=== PATIENT | female | born 1980 | race Caucasian/White ===

== ENCOUNTER 2020-02-21 16:57 | Outpatient (REF) | payer OTHER, SELFPAY | END 2020-02-21 16:58 | disposition home or self-care (01) | LOC: HO.LNP 16:57 | PROVIDERS: Visit Provider Nurse Practitioner Family | DX: R06.02 Shortness of breath (principal); Z20.828 Contact with and (suspected) exposure to other viral communicable diseases | CPT/HCPCS: 36415; 87635 ==

== ENCOUNTER 2020-02-23 06:44 | Outpatient (REF) | payer OTHER, SELFPAY ==
[2020-02-23 11:47] LABS: D Dimer < 200 NG/ML
== END 2020-02-23 06:45 | disposition home or self-care (01) ==
LOC: HO.HMGCLDS 06:44
PROVIDERS: PCP Internal Medicine; Visit Provider Nurse Practitioner Family
DX: R06.02 Shortness of breath (principal)
CPT/HCPCS: 36415; 85379

== ENCOUNTER 2020-02-26 12:10 | Emergency (ER) | payer OTHER, SELFPAY ==
[2020-02-26 12:30] VITALS: BP 114/78; PULSE 81; RESP 18; TEMP 37.2; O2SAT 97; BMI 26.9
--- NOTE | 2020-02-26 13:09 | ED.GENADULT ---
HPI - General Adult General Chief complaint: General Medical Stated complaint: SOB Time Seen by Provider: 02/26/20 13:08 Source: patient Mode of arrival: ambulatory Limitations: no limitations History of Present Illness complaint: SOB,MALAISE CONCERN THAT SHE MAY HAVE COVID,SHE WAS TESTED BUT TEST RESULT Onset (ago): day(s) (3) Location: chest Radiation: non-radiation Severity: moderate Quality: sharp Pain Consistency: constant Relieving factors: none Related Data Home Medications Medication Instructions Recorded Confirmed cetirizine 10 mg capsule 10 mg PO DAILY 02/21/20 norethindrone acetate 5 mg tablet 5 mg PO DAILY 02/21/20 Previous Rx's Medication Instructions Recorded prednisone 20 mg tablet 20 mg PO DAILY 9 Days #18 tab 02/21/20 azithromycin 250 mg tablet 250 mg PO DAILY 5 Days #5 tab 02/22/20 gabapentin 800 mg tablet 800 mg PO BEDTIME #90 tab 02/25/20 Allergies Allergy/AdvReac Type Severity Reaction Status Date / Time Iodinated Contrast Media Allergy Severe ANGIOEDEMA Unverified 02/03/20 17:46 [Iodinated Contrast Media - IV Dye] contrast dye Allergy Unknown Unverified 12/13/19 00:00 IVP DYE Allergy Severe ANGIOEDEMA Uncoded 02/03/20 17:46 Review of Systems Review of Systems: Yes all other systems are reviewed and are negative PMFSH Past Medical History Attestation statement: The following information was validated with the patient. Medical History (Updated 02/26/20 @ 14:55 by Gt Simon MD) Asthma Endometriosis Fibromyalgia History of benign schwannoma Horners syndrome Social History Social History Advance Directives: No Advance Directives Information Provided: No Physical Exam Vital Signs: Vital Signs: Vital Signs Temp Pulse Resp BP Pulse Ox 02/26/20 12:30 98.9 F 81 18 114/78 97 Body Mass Index 26.9 Const: Other: LOOKS WELL IN NO ACUTE DISTRESS General: cooperative Orientation/consciousness: oriented to person, oriented to place, oriented to time and patient oriented x3 HENMT: Head: Yes normal to inspection Ears: external ears normal Neck: Neck: Yes normal visual inspection Chest: Chest palpation & inspection: normal inspection of the chest and normal palpation of entire chest wall Resp: Effort & Inspection: normal respiratory effort Cardio: Palpation: normal PMI Rate: regular rate Rhythm: regular rhythm Skin: General skin exam: no rashes or lesions noted Neuro: General: oriented to person, oriented to place, oriented to time and patient oriented x3 Extrem: General: Yes normal to inspection Course Course Course Narrative: CHEST X-RAY NEGATIVE, ELECTROCARDIOGRAM NORMAL, SHE IS NORMOTENSIVE WHICH IS SATING 97% ON ROOM AIR SHE HAS A NEGATIVE CORONAVIRUS TEST, SHE HAS DEL MEDIAL TO THAT SHE HAD A NEGATIVE D-DIMER ROOM BY THE PRIMARY CARE PHYSICIAN Reevaluation(s) Reevaluation #1: cOVID TEST NEGATIVE Medical Decision Making ECG Data Attestation: I personally reviewed and interpreted this ECG as follows: Pacemaker model: nsr [address]-T ISOELECTRIC Pacemaker function: normal pacer function Discharge Plan Discharge Clinical Impression: Shortness of breath Patient Disposition: Home, Self-Care Instructions: Shortness of Breath (ED) Prescriptions: No Action gabapentin 800 mg tablet 800 mg PO BEDTIME Qty: 90 RF: 1 prednisone 20 mg tablet 20 mg PO DAILY 9 Days Qty: 18 RF: 0 azithromycin 250 mg tablet 250 mg PO DAILY 5 Days Qty: 5 RF: 0 Referrals: Marcela Marie MD [Primary Care Provider] - 2 days Interventions: ED Discharge Assessment Last Done: 02/26/20 15:24 Discharge Date/Time: 02/26/20 15:26
--- NOTE | 2020-02-26 13:21 | XR_ITS ---
EXAMINATION: XR CHEST CLINICAL INFORMATION: Cough COMPARISON: 08/31/2008 TECHNIQUE: Frontal view of the chest was obtained. FINDINGS: No significant abnormality is noted involving the heart, lungs, mediastinum, bony thorax or soft tissues. IMPRESSION: Unremarkable examination.
--- NOTE | 2020-02-26 13:22 | ECG_ITS ---
Test Reason : SOB Blood Pressure : / mmHG Vent. Rate : 076 BPM Atrial Rate : 076 BPM P-R Int : 156 ms QRS Dur : 076 ms QT Int : 372 ms P-R-T Axes : 066 033 051 degrees QTc Int : 418 ms Normal sinus rhythm Possible Left atrial enlargement Borderline ECG When compared with ECG of 31-AUG-2008 15:28, No significant change was found Referred By: Gt Simon Electronically Signed By:ANGIE ESQUIVEL MD
== END 2020-02-26 15:26 | disposition home or self-care (01) ==
PROVIDERS: Emergency Provider Emergency Medicine; PCP Internal Medicine
DX: R06.02 Shortness of breath (principal); Z79.899 Other long term (current) drug therapy; Z20.828 Contact with and (suspected) exposure to other viral communicable diseases
CPT/HCPCS: 71045; 93005; 99283

== ENCOUNTER → 2020-03-09 07:46 | Outpatient (REF) | payer OTHER, SELFPAY ==
--- NOTE | 2020-03-09 07:51 | CA_ITS ---
Acquisition Time: 2020-03-09 08:01:05 Total Exercise Time: 00:10:19 Test Indications: Dyspnea Medications: Protocol: GRIS Max HR: 173 BPM 95% of Pred: 181 BPM Max BP: 164/078 mmHG Max Work Load: 12.1 METS Exercise stress test using Gris protocol total of 10 min 19 sec. METS 12. Tolerateed well, denies any anginal sx, however pt felt dizzy at the end of the exercise. Pt had ortostatic hypotension in recovery upon standing. EKG without any arrhythmias, no ischemic changes. Test reviewed with Dr. Flores. Given patient's symptoms we recommend stress echo to assess for valve, and ventricular function Referred By: Marcela Marie Overread By: Berry Ramirez
== END ==
LOC: HO.CARD 07:46
PROVIDERS: PCP Internal Medicine; Visit Provider Internal Medicine
DX: R06.02 Shortness of breath (principal); R07.89 Other chest pain; J45.909 Unspecified asthma, uncomplicated; M79.7 Fibromyalgia
CPT/HCPCS: 93017

== ENCOUNTER → 2020-03-27 10:45 | Outpatient (REF) | payer OTHER, SELFPAY ==
--- NOTE | 2020-03-27 10:49 | CA_ITS ---
Acquisition Time: 2020-03-27 10:55:43 Total Exercise Time: 00:10:46 Test Indications: Abnormal Treadmill Test Medications: GABAPENTIN CETRIZINE ALBUTEROL Protocol: GRIS Max HR: 166 BPM 91% of Pred: 181 BPM Max BP: 132/072 mmHG Max Work Load: 13.0 METS Exercise stress ECHO using Gris protocol, total of 10 min 46 sec. METS 13.0 Pt tolerated well, denies any anginal sx. EKG without any arrhythmias, no ischemic changes. ECHO images taken at rest and immediately when HR achieved at peak exercise. Definity contrast used for better images. Normotensive response to exercise. Test reviewed with Dr. Carter Pt had no sx of dizziness after the exercise. Referred By: Marcela Marie Overread By: Berry Ramirez
== END ==
LOC: HO.CARD 10:45
PROVIDERS: PCP Internal Medicine; Visit Provider Internal Medicine
DX: R55 Syncope and collapse (principal)
CPT/HCPCS: 93350; Q9957

== ENCOUNTER 2020-07-24 15:11 | Outpatient (REF) | payer OTHER, SELFPAY ==
[2020-07-25 13:32] LABS: C. trachomatis RNA TMA NOT DETECTED (NOT DETECTED); N. gonorrhoeae RNA TMA NOT DETECTED (NOT DETECTED)
== END 2020-07-24 15:12 | disposition home or self-care (01) ==
LOC: HO.LAB 15:11
PROVIDERS: PCP Internal Medicine; Visit Provider Obstetrics & Gynecology
DX: Z01.419 Encounter for gynecological examination (general) (routine) without abnormal findings (principal); R10.2 Pelvic and perineal pain
CPT/HCPCS: 36415; 81003; 87491; 87591

== ENCOUNTER 2020-07-31 15:42 | Outpatient (REF) | payer OTHER, SELFPAY ==
--- NOTE | ~2020-07-31 | US_ITS ---
EXAMINATION: ULTRASOUND PELVIS COMPLETE CLINICAL INFORMATION: Pelvic and perineal pain. COMPARISON: None TECHNIQUE: Transabdominal and transvaginal imaging of the pelvis is performed. FINDINGS: The uterus is anteverted, heterogeneous measuring 6.7 cm in length, 3.2 cm in AP and 4.1 cm in transverse dimension. There is a hypoechoic lesion in the right fundus measuring 0.4 x 0.5 x 0.8 cm. No additional lesions seen. The right ovary measures 2.7 x 1.5 x 1.4 cm and volume 3.0 mL. No focal lesion seen. Previously it measured 2.7 x 1.4 x 1.9 cm and volume 3.7 mL. The left ovary measures 3.1 x 2.2 x 1.5 cm and volume 5.4 mL. Previously it measured 3.6 x 2.5 x 2.7 cm and volume 2.7 mL. There is no free fluid in the cul-de-sac. US/US pelvic complete IMPRESSION: 1. Heterogeneous uterus with a small fibroid in the right fundus. 2. The ovaries are unremarkable. 3. No free fluid in the cul-de-sac.
--- NOTE | ~2020-07-31 | US_ITS ---
EXAMINATION: ULTRASOUND PELVIS COMPLETE CLINICAL INFORMATION: Pelvic and perineal pain. COMPARISON: None TECHNIQUE: Transabdominal and transvaginal imaging of the pelvis is performed. FINDINGS: The uterus is anteverted, heterogeneous measuring 6.7 cm in length, 3.2 cm in AP and 4.1 cm in transverse dimension. There is a hypoechoic lesion in the right fundus measuring 0.4 x 0.5 x 0.8 cm. No additional lesions seen. The right ovary measures 2.7 x 1.5 x 1.4 cm and volume 3.0 mL. No focal lesion seen. Previously it measured 2.7 x 1.4 x 1.9 cm and volume 3.7 mL. The left ovary measures 3.1 x 2.2 x 1.5 cm and volume 5.4 mL. Previously it measured 3.6 x 2.5 x 2.7 cm and volume 2.7 mL. There is no free fluid in the cul-de-sac. US/US transvaginal IMPRESSION: 1. Heterogeneous uterus with a small fibroid in the right fundus. 2. The ovaries are unremarkable. 3. No free fluid in the cul-de-sac.
== END 2020-07-31 15:43 | disposition home or self-care (01) ==
LOC: HO.US 15:42
PROVIDERS: Visit Provider Obstetrics & Gynecology
DX: R10.2 Pelvic and perineal pain (principal)
CPT/HCPCS: 76830; 76856

== ENCOUNTER → 2020-08-14 11:17 | Outpatient (BNVA) | payer OTHER, SELFPAY | PROVIDERS: PCP Internal Medicine; Visit Provider Obstetrics & Gynecology ==

== ENCOUNTER 2021-03-16 07:18 | Outpatient (REF) | payer OTHER, SELFPAY ==
--- NOTE | ~2021-03-16 | MM_ITS ---
EXAMINATION: MM SCREENING DIGITAL BREAST TOMOSYNTHESIS, BILATERAL CLINICAL INFORMATION: Screening. Asymptomatic. Age 40. No prior breast imaging. No known family history breast cancer. The lifetime risk of breast cancer based on the Tyrer-Cuzick Model is 11%. COMPARISON: None (current study represents initial baseline exam). TECHNIQUE: Digital breast tomosynthesis is performed in both the craniocaudal and mediolateral oblique views along with computer-aided detection (CAD). Synthesized 2D images are generated from the tomosynthesis. FINDINGS: There are scattered areas of fibroglandular density (ACR BI-RADS breast composition Category b). There are no significant masses, abnormal calcifications, or other abnormalities. The axilla and skin contours are unremarkable. MM/MM tomosynthesis screening BI IMPRESSION: No mammographic evidence of malignancy. ASSESSMENT: BI-RADS 1: Negative RECOMMENDATION: Routine annual mammography screening. This patient's information was entered into a reminder system with a target due date for their next mammogram.
== END 2021-03-16 07:19 | disposition home or self-care (01) ==
LOC: HO.MAMMO 07:18
PROVIDERS: PCP Internal Medicine; Visit Provider Obstetrics & Gynecology
DX: Z12.31 Encounter for screening mammogram for malignant neoplasm of breast (principal)
CPT/HCPCS: 77063; 77067

== ENCOUNTER → 2021-08-01 14:46 | Outpatient (BNVA) | payer OTHER, SELFPAY | PROVIDERS: Visit Provider Obstetrics & Gynecology | DX: Z13.89 Encounter for screening for other disorder (principal) ==

== ENCOUNTER 2021-08-23 13:14 | Outpatient (REF) | payer OTHER, SELFPAY ==
--- NOTE | ~2021-08-23 | US_ITS ---
EXAMINATION: ULTRASOUND OF THE PELVIS CLINICAL INFORMATION: Abnormal uterine and vaginal bleeding. COMPARISON: 07/31/2020. TECHNIQUE: Transabdominal and transvaginal pelvic ultrasound. A transvaginal study was performed in addition to the transabdominal study which did not yield an adequate examination of the uterus and ovaries due to superimposed distended gas-filled loops of bowel. FINDINGS: The uterus is normal in size with somewhat heterogeneous appearance, measuring 8.1 x 3 x 3.9 cm longitudinally, anteroposteriorly and transversely. The endometrial stripe thickness is normal, measuring 0.3 cm in thickness. There is an anterior fundal fibroid which measures 1.1 x 0.7 x 1.2 cm. The ovaries bilaterally are visualized and appear normal, with the right ovary measuring 2.4 x 1.4 x 1.3 cm and the left ovary measuring 3.7 x 2.7 x 2.8 cm. Dominant left ovarian follicle measures up to 2.5 cm. No adnexal mass or free fluid collection seen. US/US pelvic and transvaginal IMPRESSION: Small uterine fibroid. Otherwise fairly unremarkable pelvic ultrasound
== END 2021-08-23 13:15 | disposition home or self-care (01) ==
LOC: HO.US 13:14
PROVIDERS: Visit Provider Obstetrics & Gynecology
DX: N93.9 Abnormal uterine and vaginal bleeding, unspecified (principal); D21.9 Benign neoplasm of connective and other soft tissue, unspecified
CPT/HCPCS: 76830; 76856

== ENCOUNTER → 2021-08-30 15:43 | Outpatient (BNVA) | payer OTHER, SELFPAY | PROVIDERS: Visit Provider Obstetrics & Gynecology | DX: Z13.89 Encounter for screening for other disorder (principal) ==

== ENCOUNTER 2022-03-18 09:06 | Outpatient (REF) | payer OTHER, SELFPAY ==
--- NOTE | ~2022-03-18 | XR_ITS ---
EXAMINATION: XR KNEE AP STANDING CLINICAL INFORMATION: Pain COMPARISON: None TECHNIQUE: AP and lateral bilateral standing view of the knees was obtained. FINDINGS: Bones and soft tissues are normal. No fracture or joint effusion. Alignment is anatomic. Joint spaces are well maintained. No abnormal soft tissue calcification. XR/XR knee standing BI IMPRESSION: Normal knees.
[2022-03-19 18:32] LABS: Immunoglobulin E 21 kU/L (<OR=114)
== END 2022-03-18 09:07 | disposition home or self-care (01) ==
LOC: HO.HMGCX 09:06
PROVIDERS: Absent Provider Nurse Practitioner Family; PCP Internal Medicine; Visit Provider Internal Medicine
DX: M25.561 Pain in right knee (principal); M25.562 Pain in left knee; T78.00XD Anaphylactic reaction due to unspecified food, subsequent encounter
CPT/HCPCS: 36415; 73565; 82785; 83520; 86003

== ENCOUNTER 2022-03-26 07:26 | Outpatient (REF) | payer OTHER, SELFPAY ==
[2022-03-26 11:37] LABS: MANUAL DIFF FLAG NO
[2022-03-26 11:52] LABS: Basophils Absolute Auto 0.1 X10*3/uL (0.0-0.2); Basophils Percent Auto 0.9 % (0-2); Eosinophils Absolute Auto 0.2 X10*3/uL (0.0-0.4); Eosinophils Percent Auto 3.7 % (0-4); Hematocrit 43.2 % (37.0-47.0); Hemoglobin 14.8 g/dl (12.0-16.0); Imm Gran Abs Auto 0.01 X10*3/uL (0.00-0.03); Imm Gran Pct Auto 0.2 % (0.0-0.4); Lymphocytes Absolute Auto 1.9 X10*3/uL (1.2-4.9); Lymphocytes Percent Auto 34.1 % (20-40); Mean Corpuscular HGB Conc 34.3 g/dl (31.0-35.0); Mean Corpuscular Hemoglobin 30.7 pg (27.0-33.0); Mean Corpuscular Volume 89.6 fL (80.0-98.0); Mean Platelet Volume 10.1 fL (9.4-12.3); Monocytes Absolute Auto 0.4 X10*3/uL (0.1-1.2); Monocytes Percent Auto 6.3 % (2-11); Neutrophils Absolute Auto 3.1 x10*3/uL (2.0-8.3); Neutrophils Percent Auto 54.8 % (45-73); Platelet Count 312 X10*3/uL (160-400); Red Blood Count 4.82 X10*6/uL (4.20-5.50); Red Cell Distribution Width 11.4 % (11.0-16.0); White Blood Count 5.7 X10*3/uL (4.8-10.8)
[2022-03-26 12:28] LABS: TSH reflex Free T4 0.87 uIU/mL (0.32-4.0); Vitamin D 25-OH Total 60.3 ng/mL (>30)
[2022-03-26 12:29] LABS: Alanine Aminotransferase 7 U/L (0-31); Albumin Level 4.6 g/dL (3.5-5.0); Alkaline Phosphatase 54 U/L (39-117); Anion Gap 14 (12-20); Aspartate Amino Transferase 14 U/L (5-31); Bilirubin Total 0.5 mg/dL (0.0-1.0); Blood Urea Nitrogen 11 mg/dL (9-16); C Reactive Protein 0.24 mg/dL (< or = 0.50); Calcium 9.3 mg/dL (8.4-10.2); Carbon Dioxide 22 mmol/L (22-29); Chloride 107 mmol/L (96-108); Cholesterol 161 mg/dL; Estimated Glomerular Filt Rate 58; Glucose Fasting 94 mg/dL (60-99); HDL Cholesterol 46 mg/dL; LDL Cholesterol Calculated 97 mg/dl; Potassium 4.2 mmol/L (3.3-5.1); Rheumatoid Factor < 15.0 IU/mL (<15.0); Sodium 139 mmol/L (135-145); Total Protein 7.1 g/dL (6.5-8.0); Triglycerides 90 mg/dL
[2022-03-26 12:37] LABS: Erythrocyte Sedimentation Rate 2 MM/HR (0-20)
[2022-03-28 13:16] LABS: Anti Nuclear Antibody Screen NEGATIVE (NEGATIVE)
== END 2022-03-26 07:27 | disposition home or self-care (01) ==
LOC: HO.HMGCLDS 07:26
PROVIDERS: PCP Internal Medicine; Visit Provider Internal Medicine
DX: Z00.01 Encounter for general adult medical examination with abnormal findings (principal); R10.11 Right upper quadrant pain; M25.50 Pain in unspecified joint; N80.9 Endometriosis, unspecified; D21.9 Benign neoplasm of connective and other soft tissue, unspecified
CPT/HCPCS: 36415; 80053; 80061; 82306; 84443; 85025; 85652; 86038; 86039; 86140; 86431

== ENCOUNTER 2022-03-26 12:01 | Outpatient (REF) | payer OTHER, SELFPAY ==
--- NOTE | ~2022-03-26 | MM_ITS ---
EXAMINATION: MM SCREENING DIGITAL BREAST TOMOSYNTHESIS, BILATERAL CLINICAL INFORMATION: Screening. Asymptomatic. COMPARISON: Mammography: March 16, 2021 TECHNIQUE: Digital breast tomosynthesis is performed in both the craniocaudal and mediolateral oblique views along with computer-aided detection (CAD). Synthesized 2D images are generated from the tomosynthesis. FINDINGS: There are scattered areas of fibroglandular density (ACR BI-RADS breast composition Category b). There are no significant masses, abnormal calcifications, or other abnormalities. MM/MM tomosynthesis screening BI IMPRESSION: No significant changes from prior exam. ASSESSMENT: BI-RADS 1: Negative RECOMMENDATION: Routine annual mammography screening. This patient's information was entered into a reminder system with a target due date for their next mammogram.
== END 2022-03-26 12:02 | disposition home or self-care (01) ==
LOC: HO.MAMMO 12:01
PROVIDERS: PCP Internal Medicine; Visit Provider Obstetrics & Gynecology
DX: Z12.31 Encounter for screening mammogram for malignant neoplasm of breast (principal)
CPT/HCPCS: 77063; 77067

== ENCOUNTER → 2022-08-07 13:46 | Outpatient (BNVA) | payer OTHER, SELFPAY | PROVIDERS: PCP Internal Medicine; Visit Provider Obstetrics & Gynecology ==

== ENCOUNTER 2022-08-21 13:12 | Outpatient (REF) | payer OTHER, SELFPAY ==
--- NOTE | ~2022-08-21 | US_ITS ---
EXAMINATION: US PELVIS CLINICAL INFORMATION: Benign neoplasm. 41-year-old, LMP is unknown. COMPARISON: 08/23/2021 TECHNIQUE: Ultrasound of the pelvis is performed using both transabdominal and transvaginal transducers along with Doppler. Transvaginal imaging is performed due to inadequate visualization transabdominally. FINDINGS: Uterus: The uterus is anteverted and measures 7.5 x 3.4 x 4.1 cm. The double wall endometrial thickness is 0.4 mm. The uterus is smooth in contour and has normal myometrial echogenicity. 1.2 cm intramural fundal fibroid. Adnexa: Both ovaries are visualized. There is normal color flow to the adnexa. There is no ovarian torsion. There is no pelvic ascites or fluid collection. Right ovary measures 2.0 x 1.2 x 1.2. Left ovary measures 3.6 x 2.2 x 2.0 cm. Intraovarian 2.0 x 2.1 x 1.9 cm unilocular avascular cyst., Decreased from prior study when it measured up to 2.5 cm. US/US pelvic and transvaginal IMPRESSION: 1. Intraovarian 2.1 cm unilocular avascular cyst, decreased in size from prior study when it measured up to 2.5 cm. 2. 1.2 cm intramural fundal fibroid.
== END 2022-08-21 13:13 | disposition home or self-care (01) ==
LOC: HO.US 13:12
PROVIDERS: PCP Internal Medicine; Visit Provider Obstetrics & Gynecology
DX: D21.9 Benign neoplasm of connective and other soft tissue, unspecified (principal)
CPT/HCPCS: 76830; 76856

== ENCOUNTER → 2022-09-18 08:31 | Outpatient (BNVA) | payer OTHER, SELFPAY | PROVIDERS: PCP Internal Medicine; Visit Provider Obstetrics & Gynecology | DX: D25.9 Leiomyoma of uterus, unspecified (principal) | CPT/HCPCS: 99212 ==

== ENCOUNTER 2023-01-24 | Outpatient (REF) | payer OTHER, SELFPAY | END 2023-01-24 00:01 | disposition home or self-care (01) | LOC: CF | PROVIDERS: Visit Provider Obstetrics & Gynecology | DX: R10.31 Right lower quadrant pain (principal); R10.2 Pelvic and perineal pain; R31.9 Hematuria, unspecified | CPT/HCPCS: 81002; 81025; 99212 ==

== ENCOUNTER 2023-01-24 13:17 | Outpatient (AMB) | payer OTHER, SELFPAY ==
--- NOTE | 2023-01-24 13:22 | A.OFFVIS_ITS ---
Intake Vital Signs 01/24/23 13:31 Height 5 ft 7 in Weight 169 lb 12.095 oz BMI 26.6 BP 116/70 Temp 97.8 F Intake Visit Reasons: Ultrasound follow up Title Camera Operator Required: No Information Interpreted: non-clinical & clinical Community Recreation Coordinator: Community Recreation Coordinator Present (Aimee ALARCON) Accompanied by: Self / Same As Patient Allergies Iodinated Contrast Media [Iodinated Contrast Media - IV Dye] Allergy (Severe, Verified 01/24/23 13:32) ANGIOEDEMA vianca fruit Adverse Reaction (Uncoded 01/24/23 13:32) Anaphylaxis Is last menstrual period known: No HPI HPI Comments History of Present Illness Details Presenting complaining of right lower quadrant pain radiating to the back started this morning associated with nausea no vomiting, no fever or chills, no vaginal discharge or abnormal uterine bleeding. [facility] Medical History Acne Multiple food allergies Knee pain, bilateral Right upper quadrant abdominal pain Polyarthralgia Osteoarthritis of right shoulder Arthritis, multiple joint involvement Near syncope History of seizures History of carpal tunnel syndrome Chest tightness Shortness of breath on exertion Horners syndrome History of benign schwannoma Endometriosis Asthma Fibromyalgia Surgical History History of neck surgery History of adenoidectomy S/P correction of deviated nasal septum H/O elbow surgery History of carpal tunnel surgery History of tonsillectomy Family History Father Diabetes mellitus DVT (deep venous thrombosis) HTN (hypertension) Mother Osteoarthritis Maternal Grandmother Diabetes mellitus HTN (hypertension) Paternal Grandmother Throat cancer Brother No problems noted. Son No problems noted. 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 Sexual orientation: Straight/Heterosexual Gender identity: Female Cognitive needs: No Hearing needs: No Vision needs: No Female Reproductive History Menstrual Age of Menarche: 13 control method: pills Review of Systems Const All systems reviewed & are unremarkable except as noted in HPI and below Physical Exam Vital Signs: Last Vital Signs BP 116/70 01/24/23 13:31 BMI result Body Mass Index 26.6 GI Palpation (GI): Soft to palpation, not firm and Tenderness to palpation present (GI) (Right lower quadrant tender) in the RLQ Percussion: Yes normal to percussion and Yes Other (Mild right CVA tender) General: Yes no CVA tenderness External Female Exam: normal external appearance and normal appearance of the urethra Speculum Exam - Vagina: normal appearance of the vagina, normal palpation, no lesions and no masses Speculum Exam - Cervix: normal appearance of the cervix, normal palpation, no lesions, no masses and nontender Bimanual exam- vagina & uterus: normal bimanual exam, normal palpation, uterine size normal, normal palpation, uterine shape normal, No Cervical tenderness present and non-tender Bimanual Exam- Adnexa, other: normal adnexae Back/Spine/Pelvis Back: no CVA tenderness Results AMB Test Urine AMB Test Urine Negative Last Edit by Aimee Lujan CMA on 13:35 AMB Urinalysis Dipstick UR Leukocytes Moderate Last Edit by Aimee Lujan CMA on 01/24/23 13:39 UR Nitrite Negative Last Edit by Aimee Lujan CMA on 01/24/23 13:39 UR Urobilinogen Normal Last Edit by Aimee Lujan CMA on 01/24/23 13:39 UR Protein Trace Last Edit by Aimee Lujan CMA on 01/24/23 13:39 UR Ph 5.5 Last Edit by Aimee Lujan CMA on 01/24/23 13:39 UR Blood Small Last Edit by Aimee Lujan CMA on 01/24/23 13:39 UR Specific [place] 1.025 Last Edit by Aimee Lujan CMA on 01/24/23 13:39 UR Ketone Trace Last Edit by Aimee Lujan CMA on 01/24/23 13:39 UR Bilirubin Small Last Edit by Aimee Lujan CMA on 01/24/23 13:39 UR Glucose Negative Last Edit by Aimee Lujan CMA on 01/24/23 13:39 Results Reviewed Results Reviewed: Laboratory Last Values Urine pH (Clinic) 5.5 01/24/23 13:34 Specific [place] (Clinic) 1.025 01/24/23 13:34 Ur Protein (Clinic) Trace 01/24/23 13:34 Ur Ketones (Clinic) Trace 01/24/23 13:34 Urine Blood (Clinic) Small 01/24/23 13:34 Urine Nitrite Negative 01/24/23 13:34 Urine Bilirubin (Clinic) Small 01/24/23 13:34 Urobilinogen (Clinic) Normal 01/24/23 13:34 Leukocyte Esterase (Clinic) Moderate 01/24/23 13:34 Urine Glucose (Clinic) Negative 01/24/23 13:34 Tst Clinic Negative 01/24/23 13:34 Assessment & Plan Assessment & Plan (1) Right lower quadrant pain: Code(s): R10.31 - Right lower quadrant pain Plan: Urine test done in the office was negative. Urine dip showed positive microscopic hematuria protein and leukocyte more send urine for culture. Discussed with the patient the findings on her pelvic exam no cervical motion tenderness uterine or adnexal tenderness, right lower quadrant tenderness with right CVA tenderness , PID and ectopic could be ruled out but the remaining differential diagnosis of her right lower quadrant pain includes but not limited to kidney stone, kidney infection, appendicitis, endometriosis, ovarian cyst. Recommended patient to go to emergency room anya to be evaluated. All questions answered, the patient verbalized understanding Orders: Orders AMB HCG Urine Test Today Z32.02 - Encounter for test, result negative CT NG by PCR Today R10.2 - Pelvic and perineal pain Urine Culture Today R31.9 - Hematuria, unspecified AMB Urinalysis Dipstick Today R31.9 - Hematuria, unspecified Coding Level of Care Code Est Pt Level 3 (79457) Diagnoses Right lower quadrant pain R10.31
[2023-01-24 13:31] VITALS: BP 116/70; TEMP 36.6; BMI 26.6
== END 2023-01-24 14:26 | disposition home or self-care (01) ==
PROVIDERS: PCP Internal Medicine; Visit Provider Obstetrics & Gynecology
DX: R10.31 Right lower quadrant pain (principal); Z32.02 Encounter for pregnancy test, result negative; R31.9 Hematuria, unspecified
CPT/HCPCS: 99213

== ENCOUNTER 2023-01-24 13:34 | Outpatient (REF) | payer OTHER, SELFPAY ==
[2023-01-25 09:27] LABS: CT PCR NOT DETECTED (Not Detect.); NG PCR NOT DETECTED (Not Detect.)
== END 2023-01-24 13:35 | disposition home or self-care (01) ==
LOC: HO.LNP 13:34
PROVIDERS: Visit Provider Obstetrics & Gynecology
DX: R31.9 Hematuria, unspecified (principal); R10.2 Pelvic and perineal pain
CPT/HCPCS: 0353U; 87086

== ENCOUNTER 2023-03-28 07:50 | Outpatient (REF) | payer OTHER, SELFPAY ==
--- NOTE | ~2023-03-28 | MM_ITS ---
EXAMINATION: MM SCREENING DIGITAL BREAST TOMOSYNTHESIS, BILATERAL CLINICAL INFORMATION: Screening. Asymptomatic. COMPARISON: Mammography: 03/26/2022, 03/16/2021. TECHNIQUE: Digital breast tomosynthesis is performed in both the craniocaudal and mediolateral oblique views along with computer-aided detection (CAD). Synthesized 2D images are generated from the tomosynthesis. FINDINGS: The breasts are heterogeneously dense, which may obscure small masses (ACR BI-RADS breast composition Category c). There are no suspicious masses, suspicious grouped calcifications, or areas of architectural distortion in either breast. The parenchymal pattern is stable from prior exams. MM/MM tomosynthesis screening BI IMPRESSION: No mammographic evidence of malignancy. ASSESSMENT: BI-RADS BI-RADS 1 - Negative RECOMMENDATION: Routine annual mammography screening. 1 year F/U This examination should not preclude the clinical evaluation of a suspicious palpable abnormality. This patient's information was entered into a reminder system with a target due date for their next mammogram.
== END 2023-03-28 07:51 | disposition home or self-care (01) ==
LOC: HO.MAMMO 07:50
PROVIDERS: PCP Internal Medicine; Visit Provider Internal Medicine
DX: Z12.31 Encounter for screening mammogram for malignant neoplasm of breast (principal)
CPT/HCPCS: 77063; 77067

== ENCOUNTER → 2023-03-28 08:00 | Outpatient (BNV) | payer OTHER, SELFPAY | PROVIDERS: PCP Internal Medicine; Visit Provider Radiology Diagnostic Radiology | DX: Z12.31 Encounter for screening mammogram for malignant neoplasm of breast (principal) | CPT/HCPCS: 77063; 77067 ==

== ENCOUNTER 2023-08-20 12:08 | Outpatient (AMB) | payer OTHER, SELFPAY ==
--- NOTE | 2023-08-20 12:09 | MHC.OFFVIS ---
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 No complaints. Last Pap/HPV was negative in 07/08 Last Mammogram was BI-RADS 1 in 04/10 The patient had an ultrasound showed a fundal myoma measuring 1.1 cm in 09/07 [facility] Medical History Acne Multiple food allergies Knee pain, bilateral Right upper quadrant abdominal pain Polyarthralgia Osteoarthritis of right shoulder Arthritis, multiple joint involvement Near syncope History of seizures History of carpal tunnel syndrome Chest tightness Shortness of breath on exertion Horners syndrome History of benign schwannoma Endometriosis Asthma Fibromyalgia Surgical History History of neck surgery History of adenoidectomy S/P correction of deviated nasal septum H/O elbow surgery History of carpal tunnel surgery History of tonsillectomy Family History Father Diabetes mellitus DVT (deep venous thrombosis) HTN (hypertension) Mother Osteoarthritis Maternal Grandmother Diabetes mellitus HTN (hypertension) Paternal Grandmother Throat cancer Brother No problems noted. Son No problems noted. 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 Sexual orientation: Straight/Heterosexual Gender identity: Female Cognitive needs: No Hearing needs: No Vision needs: No Female Reproductive History Menstrual Age of Menarche: 13 Duration of menses: other control method: pills Total pregnancies: 1 Full term: 1 History of abnormal pap smear: No Review of Systems Const All systems reviewed & are unremarkable except as noted in HPI and below Card Reports as per HPI Resp Reports as per HPI GI Reports as per HPI and Reports no additional complaints Reports as per HPI Physical Exam Vital Signs: Last Vital Signs BP 110/62 08/20/23 12:11 BMI result Body Mass Index 27.4 Const General: cooperative, healthy appearing and comfortable Chest Chest palpation & inspection: normal inspection of the chest and normal palpation of entire chest wall Breast/axilla inspection: normal inspection of the breasts and normal inspection of the axillae Breast/axilla palpation: normal palpation of the breasts, normal palpation of the axillae and no axillary lymphadenopathy Resp Effort & Inspection: normal respiratory effort Auscultation: clear to auscultation bilaterally Percussion: percussion normal Cardio Palpation: normal PMI Rate: regular rate Rhythm: regular rhythm Heart sounds: no murmurs and no rubs Peripheral pulses: Peripheral pulses 2+ throughout GI Inspection: Yes normal to inspection Palpation (GI): Soft to palpation, nontender, no guarding, not rigid and No hepatosplenomegaly present Percussion: Yes normal to percussion Auscultation: normal bowel sounds Rectal Exam - Female: deferred General: Yes bladder normal to palpation External Female Exam: No lesion Speculum Exam - Vagina: normal appearance of the vagina, normal palpation, normal vaginal discharge and not erythematous Speculum Exam - Cervix: normal appearance of the cervix and normal palpation Bimanual exam- vagina & uterus: normal bimanual exam, normal palpation, uterine size normal, bladder normal to palpation, consistency normal and normal palpation Bimanual Exam- Adnexa, other: normal adnexae, no masses and no tenderness Assessment & Plan Assessment & Plan (1) Uterine myoma: Code(s): D25.9 - Leiomyoma of uterus, unspecified Plan: Will repeat ultrasound compared to the size of the myoma. Instructions given the patient to schedule an ultrasound follow-up appointment within 2 weeks. (2) Well woman exam: Code(s): Z01.419 - Encounter for gynecological examination (general) (routine) without abnormal findings Plan: Cotesting not indicated this year. Instructions given the patient to schedule next screening Mammogram 04/11. Counseled the patient about the recommended dietary allowance of 1000 mg of Calcium & 600 IU of vitamin D. The patient was instructed to perform monthly self-breast exams and to schedule an annual exam in a year; All questions answered and the patient verbalized understanding. Instructed the patient to schedule annual exam in a year Orders: Orders US pelvic and transvaginal Today D25.9 - Leiomyoma of uterus, unspecified Coding Level of Care Code Est Pt Prev Care 40-64y(85278) Diagnoses Uterine myoma D25.9 Well woman exam Z01.419
[2023-08-20 12:11] VITALS: BP 110/62; BMI 27.4
== END 2023-08-20 12:33 | disposition home or self-care (01) ==
PROVIDERS: Visit Provider Obstetrics & Gynecology
DX: Z01.419 Encounter for gynecological examination (general) (routine) without abnormal findings (principal); D25.9 Leiomyoma of uterus, unspecified
CPT/HCPCS: 99396

== ENCOUNTER → 2023-08-20 12:08 | Outpatient (BNVA) | payer OTHER, SELFPAY | PROVIDERS: Visit Provider Obstetrics & Gynecology ==

== ENCOUNTER 2023-08-27 13:23 | Outpatient (REF) | payer OTHER, SELFPAY ==
--- NOTE | ~2023-08-27 | US_ITS ---
EXAMINATION: US PELVIS CLINICAL INFORMATION: Fibroid uterus. COMPARISON: Pelvic ultrasound 08/21/2022. TECHNIQUE: Ultrasound of the pelvis is performed using both transabdominal and transvaginal transducers along with Doppler. Transvaginal imaging is performed due to inadequate visualization transabdominally. FINDINGS: Uterus: The uterus is anteverted and measures 8.6 x 3.0 x 4.3 cm. The double wall endometrial thickness is 0.4 cm. Intramural fundal fibroid measures 1.3 x 1.2 x 1.5 cm compared to 1.1 x 1.2 x 1.1 cm. Adnexa: The ovaries appear normal. No abnormal color flow. The right ovary measures 2.6 x 1.3 x 1.3 cm, volume 2.4 mL. The left ovary measures 0.9 0.7 x 0.8 cm, volume 0.9 mL. No pelvic free fluid. US/US pelvic and transvaginal IMPRESSION: Slight enlargement of uterine fibroid measuring 1.5 cm compared to 1.2 cm.
== END 2023-08-27 13:24 | disposition home or self-care (01) ==
LOC: HO.US 13:23
PROVIDERS: PCP Internal Medicine; Visit Provider Obstetrics & Gynecology
DX: D25.9 Leiomyoma of uterus, unspecified (principal)
CPT/HCPCS: 76830; 76856

== ENCOUNTER 2023-10-14 09:17 | Outpatient (AMB) | payer OTHER, SELFPAY ==
--- NOTE | 2023-10-14 09:41 | A.OFFVIS_ITS ---
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 Pelvic ultrasound done in 09/09 showed the following: 'Uterus: The uterus is anteverted and measures 8.6 x 3.0 x 4.3 cm. The double wall endometrial thickness is 0.4 cm. Intramural fundal fibroid measures 1.3 x 1.2 x 1.5 cm compared to 1.1 x 1.2 x 1.1 cm. Adnexa: The ovaries appear normal. No abnormal color flow. The right ovary measures 2.6 x 1.3 x 1.3 cm, volume 2.4 mL. The left ovary measures 0.9 0.7 x 0.8 cm, volume 0.9 mL. No pelvic free fluid PFSH Medical History Acne Multiple food allergies Knee pain, bilateral Right upper quadrant abdominal pain Polyarthralgia Osteoarthritis of right shoulder Arthritis, multiple joint involvement Near syncope History of seizures History of carpal tunnel syndrome Chest tightness Shortness of breath on exertion Horners syndrome History of benign schwannoma Endometriosis Asthma Fibromyalgia Surgical History History of neck surgery History of adenoidectomy S/P correction of deviated nasal septum H/O elbow surgery History of carpal tunnel surgery History of tonsillectomy Family History Father Diabetes mellitus DVT (deep venous thrombosis) HTN (hypertension) Mother Osteoarthritis Maternal Grandmother Diabetes mellitus HTN (hypertension) Paternal Grandmother Throat cancer Brother No problems noted. Son No problems noted. 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 Sexual orientation: Straight/Heterosexual Gender identity: Female Cognitive needs: No Hearing needs: No Vision needs: No Female Reproductive History Menstrual Age of Menarche: 13 Review of Systems Const All systems reviewed & are unremarkable except as noted in HPI and below Reports as per HPI and Reports no additional complaints GI Reports no additional complaints Reports no additional complaints Physical Exam Vital Signs: Last Vital Signs BP 118/74 10/14/23 09:43 BMI result Body Mass Index 27.3 Assessment & Plan Assessment & Plan (1) Uterine myoma: Code(s): D25.9 - Leiomyoma of uterus, unspecified Category: Medical Plan: Discussed with the patient the findings on pelvic ultrasound & the risk of myosarcoma; discussed with the patient the options of treatment including expectant management versus hysterectomy; the pros and cons, risks benefits of each approach were discussed with the patient including the fact that in cases of myosarcoma, surgical treatment can lead to early diagnosis and positively affects the prognosis; after further discussion, the patient decided to proceed with expectant management. Will repeat pelvic ultrasound periodically. Instructions given to patient to call in case any of the following occurs: pressure symptoms, abnormal uterine bleeding, pelvic pain; and to schedule a future office follow-up appointment for reassessment and to order a repeat ultrasound . All questions answered, the patient verbalized understanding and agreed with the plan . Coding Level of Care Code Est Pt Level 3 (58362) Diagnoses Uterine myoma D25.9
[2023-10-14 09:43] VITALS: BP 118/74; BMI 27.3
== END 2023-10-14 14:00 | disposition home or self-care (01) ==
PROVIDERS: PCP Internal Medicine; Visit Provider Obstetrics & Gynecology
DX: D25.9 Leiomyoma of uterus, unspecified (principal)
CPT/HCPCS: 99213

== ENCOUNTER → 2023-10-14 09:17 | Outpatient (BNVA) | payer OTHER, SELFPAY | PROVIDERS: PCP Internal Medicine; Visit Provider Obstetrics & Gynecology | DX: D25.9 Leiomyoma of uterus, unspecified (principal) | CPT/HCPCS: 99212 ==

== ENCOUNTER 2023-11-28 11:09 | Outpatient (AMB) | payer OTHER, SELFPAY ==
--- NOTE | 2023-11-28 08:18 | MHC.PC.OV ---
Intake Visit Reasons: Andriod [phone] insomnia Allergies Iodinated Contrast Media [Iodinated Contrast Media - IV Dye] Allergy (Severe, Verified 11/28/23 11:28) ANGIOEDEMA vianca fruit Adverse Reaction (Uncoded 11/28/23 11:28) Anaphylaxis Medication List - Last Reconciled 11/28/23 by Marcela Marie MD albuterol sulfate 90 mcg/actuation 2 inhalations inhalation Q6H PRN fluticasone propionate 110 mcg/actuation 1 puff PO BID norethindrone acetate 5 mg PO DAILY Tobacco use date assessed: 11/28/23 Dental Screening Dental Screen Date: 11/28/23 Did you have a dental visit in the last 12 months?: Yes Did you have a dental problem in the last 6 months where you did not have access to dental care?: No Was dental information given to patient?: Patient has dentist HPI Andriod [phone] insomnia HPI Details 43-year-old lady here today complaining of difficulty maintaining sleep. Patient states that she has not had any problems with sleeping in the past. Was on gabapentin for several years but once she has tapered off it, she started having difficulty with frequent awakenings, has to go to the bathroom to urinate at least twice during the night, has restricted her water intake before bedtime but still gets up to to urinate, almost like a habit , and has difficulty going back to sleep. She does complain of feeling tired when she wakes up, has excessive daytime sleepiness but does not given to take naps. Has been told that she snores a lot and sometimes would occasionally wake up coughing. She has tried tawn-bam-rdyxozc melatonin, CBD oils, Tylenol p.m. which affords only temporary relief. [facility] Medical History (Updated 11/28/23 @ 11:44 by Marcela Marie MD) Loud snoring Excessive daytime sleepiness Disturbed sleep rhythm Acne Multiple food allergies Knee pain, bilateral Right upper quadrant abdominal pain Polyarthralgia Osteoarthritis of right shoulder Arthritis, multiple joint involvement Near syncope History of seizures History of carpal tunnel syndrome Chest tightness Shortness of breath on exertion Horners syndrome History of benign schwannoma Endometriosis Asthma Fibromyalgia Surgical History History of neck surgery History of adenoidectomy S/P correction of deviated nasal septum H/O elbow surgery History of carpal tunnel surgery History of tonsillectomy Family History Father Diabetes mellitus DVT (deep venous thrombosis) HTN (hypertension) Mother Osteoarthritis Maternal Grandmother Diabetes mellitus HTN (hypertension) Paternal Grandmother Throat cancer Brother No problems noted. Son No problems noted. 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 1. Little interest or pleasure in doing things: not at all 2. Feeling down, depressed, or hopeless: not at all 3. Trouble falling or staying asleep, or sleeping too much: not at all 4. Feeling tired or having little energy: not at all 5. Poor appetite or overeating: not at all 6. Feeling bad about yourself - or that you are a failure or have let yourself or your family down: not at all 7. Trouble concentrating on things, such as reading the newspaper or watching television: not at all 8. Moving or speaking so slowly that other people could have noticed. Or the opposite - being so fidgety or restless that you have been moving around a lot more than usual: not at all 9. Thoughts that you would be better off or of hurting yourself in some way: not at all Total score: 0 Depression Screening Interpretation: Negative Depression Screening Done: Yes 95538 - PHQ-9 Billing: Yes Source: Developed by Drs. Todd Sanchez, Eva Serrato, Vimal Sevilla and colleagues, with an educational frank from [employer]. Thrive Questionnaire Date Thrive assessed: 11/28/23 I am a: Patient What is your living situation today?: I have a steady place to live Within the past 12 months, did the food you bought not last and you didn't have the money to get more?: Never true Within the past 12 months, did you worry whether your food would run out before you got money to buy more?: Never true Do you have trouble paying for medicines?: No Do you have trouble getting transportation to medical appointments?: No Do you have trouble paying your heating and electricity bill?: No Do you have trouble taking care of your child, family member or friend?: No Do you have trouble with day-to-day activities such as bathing, preparing meals, shopping, managing finances, etc.?: No Are you currently unemployed and looking for a job?: No Are you interested in more education?: No THRIVE Score: 0 AUDIT C Alcohol Use Questionnaire (AUDIT-C) 1. How often do you have a drink containing alcohol?: Never Total Score: 0 RAJESH-7 AMB Questionnaire RAJESH-7 Date RAJESH - 7 assessed: 11/28/23 Feeling nervous, anxious, or on edge: 0 = Not at all Not being able to stop or control worryin = Not at all Worrying too much about different things: 0 = Not at all Trouble relaxin = Not at all Being so restless that it is hard to sit still: 0 = Not at all Becoming easily annoyed or irritable: 0 = Not at all Feeling afraid as if something awful might happen: 0 = Not at all Total RAJESH-7 score (0-4 normal; 5-9 mild; 10-14 moderate; 15-21 severe): 0 Source: Developed by Drs. Todd Sanchez, Eva Serrato, Vimal Sevilla and colleagues, with an educational frank from [employer]. RAJESH-7 Assessment Billing RAJESH-7 Assessment Tool: RAJESH-7 Assessment 50254 Wykoff Sleepiness Scale Questions Sitting and reading: moderate chance of dozing Watching TV: would never doze Sitting inactive in a theater, movie etc.: would never doze As a passenger in a car for an hour without break: would never doze Lying down in the afternoon when circumstances permit: moderate chance of dozing Sitting and talking to someone: would never doze Sitting quietly after lunch without alcohol: moderate chance of dozing In a car, while stopped for a few minutes in the traffic: would never doze ESS < 10: normal, ESS > 12: pathologic: 6 Review of Systems Const All systems reviewed & are unremarkable except as noted in HPI and below Reports as per HPI and Reports no additional complaints ENT Reports no additional complaints Card Reports no additional complaints GI Reports no additional complaints Physical exam (Primary Care) Tobacco/Smoking Status: Tobacco use Status Tobacco use date assessed 11/28/23 11/28/23 08:22 Patient Tobacco Use Status Never used Tobacco 11/28/23 08:22 e-Cigarette/Vaping Use Never Used 11/28/23 08:22 PHQ-9: PHQ-9 Score PHQ-9: Total score 0 11/28/23 11:37 Depression Screening Interpretation: Negative Thrive Assessment: Date of Thrive Assessment Date Thrive assessed 11/28/23 11/28/23 08:22 Telehealth Telehealth Telehealth Platform: [employer] Location of provider rendering services: practice address Location of patient: address on file Patient Identification confirmed using: Name, : Yes Telehealth method: video Patient verbally consented to treatment: Yes Patient verbally consented to billing insurance company: Yes Patient informed of any privacy concerns related to visit: Yes Minutes spent on Phone/Video with Pt.: 15 Assessment and Plan Assessment & Plan (1) Disturbed sleep rhythm: Code(s): G47.20 - Circadian rhythm sleep disorder, unspecified type (2) Excessive daytime sleepiness: Code(s): G47.19 - Other hypersomnia (3) Loud snoring: Code(s): R06.83 - Snoring (4) Nocturia: Code(s): R35.1 - Nocturia Plan Referred for home sleep study, will check urinalysis, follow-up after test done Orders: Orders RT home sleep study 11/28/23 G47.19 - Other hypersomnia, G47.20 - Circadian rhythm sleep disorder, unspecified type, R06.83 - Snoring UA CC w/rflx Micro + Cult 11/28/23 R35.1 - Nocturia Coding Level of Care Code Tele Est Pt Level 4 (92064) Diagnoses Disturbed sleep rhythm G47.20 Excessive daytime sleepiness G47.19 Loud snoring R06.83 Nocturia R35.1 Additional Codes RAJESH-7 Assessment Billing - RAJESH-7 Assessment Tool: RAJESH-7 Assessment 38313 ([id number])
== END 2023-11-28 11:55 | disposition home or self-care (01) ==
LOC: HO.HMGC 11:09
PROVIDERS: PCP Internal Medicine; Visit Provider Internal Medicine
DX: G47.20 Circadian rhythm sleep disorder, unspecified type (principal); G47.19 Other hypersomnia; R06.83 Snoring; R35.1 Nocturia
CPT/HCPCS: 99214

== ENCOUNTER 2023-12-01 10:26 | Outpatient (REF) | payer OTHER, SELFPAY ==
[2023-12-01 13:37] LABS: Appearance Urine Clear; Color Urine Yellow; Glucose Urine UA Negative (Negative); Leukocyte Esterase Urine Moderate (2+) (Negative); Nitrite Urine Negative (Negative); PH 5.5 (5.0-9.0); UMIC TRIGGER UACC YES; Urine Blood Negative (Negative); Urine Ketones Trace mg/dL (Negative); Urine Protein Negative (Neg-Trace)
[2023-12-01 13:54] LABS: Bacteria Urine None Seen (None Seen); Hyaline Casts Urine 0-2 /LPF (0-2); RBC Urine 0-2 /HPF (0-2); Squamous Epithelial Cell Urine 0-2 /HPF (0-2); WBC Urine 0-5 /HPF (0-5)
== END 2023-12-01 10:27 | disposition home or self-care (01) ==
LOC: HO.HMGCLDS 10:26
PROVIDERS: PCP Internal Medicine; Visit Provider Internal Medicine
DX: R35.1 Nocturia (principal)
CPT/HCPCS: 81001; 87086

== ENCOUNTER 2023-12-16 08:49 | Outpatient (AMB) | payer OTHER, SELFPAY ==
[2023-12-16 09:04] VITALS: BP 120/62; PULSE 89; O2SAT 100; BMI 27.2
--- NOTE | 2023-12-16 09:04 | A.OFFPC_ITS ---
Vital Signs 12/16/23 09:04 Height 5 ft 7 in Weight 174 lb BMI 27.2 BP 120/62 Blood Pressure Location Lt brachial Position Sitting Pulse 89 Pulse Source Pulse Oximeter Pulse Oximetry (%) 100 Oxygen Delivery Method Room Air Intake Visit Reasons: PE Intake Note: Pt is here today for her PE: last mammogram 03/28/23, papsmear 08/01/21 Allergies Iodinated Contrast Media [Iodinated Contrast Media - IV Dye] Allergy (Severe, Verified 12/16/23 09:48) ANGIOEDEMA nogueira Adverse Reaction (Verified 12/16/23 09:48) Anaphylaxis vianca fruit Adverse Reaction (Uncoded 12/16/23 09:48) Anaphylaxis Medication List - Last Reconciled 12/16/23 by Marcela Marie MD albuterol sulfate 90 mcg/actuation 2 inhalations inhalation Q6H PRN fluticasone propionate 110 mcg/actuation 1 puff PO BID norethindrone acetate 5 mg PO DAILY Tobacco use date assessed: 12/16/23 Dental Screening Dental Screen Date: 12/16/23 Did you have a dental visit in the last 12 months?: Yes Did you have a dental problem in the last 6 months where you did not have access to dental care?: No Was dental information given to patient?: Patient has dentist HPI PE HPI Details 43-year-old lady here today for physical exam. She is up-to-date with her screening mammogram done 03/28/2023, and is up-to-date with her cervical cancer screening with last Pap done in 2021 showing normal findings. She currently sees Dr. Lucas silveira, her tuck pointer helper for her fibromyalgia as well as osteoarthritis. Has been having recurrent right flank pain, with brownish colored urine, s een at the ER and diagnosed with right kidney stones. She needs a referral to see Dr. Lucero again for her acne and rosacea [facility] Medical History (Updated 12/16/23 @ 10:16 by Marcela Marie MD) Rosacea History of hematuria History of kidney stones Loud snoring Excessive daytime sleepiness Disturbed sleep rhythm Acne Multiple food allergies Knee pain, bilateral Right upper quadrant abdominal pain Polyarthralgia Osteoarthritis of right shoulder Arthritis, multiple joint involvement Near syncope History of seizures History of carpal tunnel syndrome Chest tightness Shortness of breath on exertion Horners syndrome History of benign schwannoma Endometriosis Asthma Fibromyalgia Surgical History History of neck surgery History of adenoidectomy S/P correction of deviated nasal septum H/O elbow surgery History of carpal tunnel surgery History of tonsillectomy Family History Father Diabetes mellitus DVT (deep venous thrombosis) HTN (hypertension) Mother Osteoarthritis Maternal Grandmother Diabetes mellitus HTN (hypertension) Paternal Grandmother Throat cancer Brother No problems noted. Son No problems noted. 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 1. Little interest or pleasure in doing things: not at all 2. Feeling down, depressed, or hopeless: not at all 3. Trouble falling or staying asleep, or sleeping too much: not at all 4. Feeling tired or having little energy: not at all 5. Poor appetite or overeating: not at all 6. Feeling bad about yourself - or that you are a failure or have let yourself or your family down: not at all 7. Trouble concentrating on things, such as reading the newspaper or watching television: not at all 8. Moving or speaking so slowly that other people could have noticed. Or the opposite - being so fidgety or restless that you have been moving around a lot more than usual: not at all 9. Thoughts that you would be better off or of hurting yourself in some way: not at all Total score: 0 Depression Screening Interpretation: Negative Depression Screening Done: Yes Source: Developed by Drs. Todd Sanchez, Eva Serrato, Vimal Sevilla and colleagues, with an educational frank from [employer]. Thrive Questionnaire Date Thrive assessed: 12/16/23 I am a: Patient What is your living situation today?: I have a steady place to live Within the past 12 months, did the food you bought not last and you didn't have the money to get more?: Never true Within the past 12 months, did you worry whether your food would run out before you got money to buy more?: Never true Do you have trouble paying for medicines?: No Do you have trouble getting transportation to medical appointments?: No Do you have trouble paying your heating and electricity bill?: No Do you have trouble taking care of your child, family member or friend?: No Do you have trouble with day-to-day activities such as bathing, preparing meals, shopping, managing finances, etc.?: No Are you currently unemployed and looking for a job?: No Are you interested in more education?: No Please select the resources that you would like help with: Housing/Care Home Currently or been in a relationship where the following occur: No concerns reported THRIVE Score: 0 AUDIT C Alcohol Use Questionnaire (AUDIT-C) 1. How often do you have a drink containing alcohol?: Never 3. How often do you have six or more drinks on one occasion?: Never Total Score: 0 RAJESH-7 AMB Questionnaire RAJESH-7 Date RAJESH - 7 assessed: 12/16/23 Feeling nervous, anxious, or on edge: 0 = Not at all Not being able to stop or control worryin = Not at all Worrying too much about different things: 0 = Not at all Trouble relaxin = Not at all Being so restless that it is hard to sit still: 0 = Not at all Becoming easily annoyed or irritable: 0 = Not at all Feeling afraid as if something awful might happen: 0 = Not at all Total RAJESH-7 score (0-4 normal; 5-9 mild; 10-14 moderate; 15-21 severe): 0 Source: Developed by Drs. Todd Sanchez, Eva Serrato, Vimal Sevilla and colleagues, with an educational frank from [employer]. RAJESH-7 Assessment Billing RAJESH-7 Assessment Tool: RAEJSH-7 Assessment 54094 Review of Systems Const All systems reviewed & are unremarkable except as noted in HPI and below Eyes Reports blurry vision and Reports requires corrective lenses ENT Reports no additional complaints Card Denies chest pain, Denies rapid heart rate, Denies irregular heart rhythm, Denies leg edema, Denies lightheadedness and Denies dyspnea Resp Denies cough and Denies dyspnea GI Reports no additional complaints Reports no additional complaints Musc Reports no additional complaints Skin/Breast Reports system reviewed and no additional complaints, except as documented Neuro Denies Sensory deficit (Neuro) Psych Reports no additional complaints Endo Reports no additional complaints Soy/Lymph Reports no additional complaints Aller/Immun Reports no additional complaints Physical exam (Primary Care) Vital Signs: Last Vital Signs Pulse 89 12/16/23 09:04 BP 120/62 12/16/23 09:04 Pulse Ox 100 12/16/23 09:04 Oxygen Delivery Method Room Air 12/16/23 09:04 BMI result Body Mass Index 27.2 Tobacco/Smoking Status: Tobacco use Status Tobacco use date assessed 12/16/23 12/16/23 09:05 Patient Tobacco Use Status Never used Tobacco 12/16/23 09:05 e-Cigarette/Vaping Use Never Used 12/16/23 09:05 PHQ-9: PHQ-9 Score PHQ-9: Total score 0 12/16/23 10:16 Depression Screening Interpretation: Negative Thrive Assessment: Date of Thrive Assessment Date Thrive assessed 12/16/23 12/16/23 09:23 Currently or been in a relationship where the following occur: No concerns reported Advance Care Planning discussion: Completed/Scanned Date of discussion: 12/16/23 Who was present: Patient Forms completed: Health Care Proxy Time spent: 16-45 minutes Actual minutes spent: 16 Const General: no acute distress and alert Nutritional Appearance: average body habitus Orientation/consciousness: patient oriented x3 HENMT Head: Yes normocephalic and Yes atraumatic Ears: hearing grossly normal bilaterally, TM's normal bilaterally and EAC's normal General nose exam: Normal external nose present and No nasal discharge present Face and sinus: Yes face symmetric Mouth: Normal oral and palatal mucosa present, lip normal, tongue normal, oropha rynx normal and moist mucous membranes Eyes General: appearance normal, both eyes and all related structures Neck Neck: Yes full ROM, Yes no lymphadenopathy and Yes supple Thyroid: Thyroid normal Chest Breast/axilla palpation: normal palpation of the breasts Resp Effort & Inspection: normal respiratory effort and able to speak in complete sentences Auscultation: clear to auscultation bilaterally Cardio Rate: regular rate Rhythm: regular rhythm Heart sounds: S1 normal heart sound present and S2 normal heart sound present GI Inspection: Yes normal to inspection Palpation (GI): Soft to palpation and No hepatosplenomegaly present Auscultation: normal bowel sounds Other: Followed by Dr. Nolan for her routine Pap and pelvic exam General: Yes CVA tenderness (Right) Back/Spine/Pelvis Back: CVA tenderness (Right) Skin Other: Acneiform scars on cheeks Neuro General: patient oriented x3, gait normal, moves all extremities, Normal light touch and pain sensation, no focal motor deficits, CN's II-XI intact bilaterally and normal sensation to monofilament Sensory Exam: No Sensory deficit (Neuro) Extrem General: Yes full ROM, Yes no joint enlargement, Yes no clubbing, cyanosis or edema, Yes no calf tenderness and Yes normal gait Psych Appearance: grossly normal and well kempt Mental Status: mental status grossly normal Speech and movement: Normal speech and movement present Affect: normal affect Attitude: cooperative Thought process: Normal thought process present Assessment and Plan Assessment & Plan (1) Annual visit for general adult medical examination with abnormal findings: Code(s): Z00.01 - Encounter for general adult medical examination with abnormal findings Plan: Will check appropriate labs. Continue with regular dental visit every 6 months and regular eye exams, at least every 2 years. Take adequate calcium in diet and vitamin-D 3 at 2000 IU per cap once a day, in addition to weight-bearing exercises to help maintain good muscle tone and weight control. Instructed to do self-breast exam, and recommended to get yearly mammogram, currently up-to-date. She is also up-to-date with her cervical cancer screening. Declines getting any colon cancer screening at present. Patient also does not want to get any vaccination (2) History of kidney stones: Code(s): Z87.442 - Personal history of urinary calculi Plan: Repeat renal ultrasound ordered. (3) History of hematuria: Code(s): Z87.448 - Personal history of other diseases of urinary system Plan: Repeat renal ultrasound ordered (4) Acne: Code(s): L70.9 - Acne, unspecified Qualifiers: Acne type: excoriated acne Qualified Code(s): L70.5 - Acne excoriee Plan: Referral to [facility] dermatology (5) Encounter for counseling regarding advance directives: Code(s): Z71.89 - Other specified counseling Plan: Initiated the conversation about Advanced Directives. Advanced Directives help patients prepare for current and future decisions about their medical treatment and place of care. Discussed with patient that it is a process where a patients current condition and prognosis are reviewed, their wishes for information regarding their illness are elicited, and likely medical dilemmas are presented and options discussed. Healthcare proxy form completed today. The form can be amended as needed, reviewed yearly and make changes as needed Orders: Orders US renal BI 12/16/23 Z87.442 - Personal history of urinary calculi, Z87.448 - Personal history of other diseases of urinary system Lipid Panel 12/16/23 Z00.01 - Encounter for general adult medical examination with abnormal findings, Z13.1 - Encounter for screening for diabetes mellitus, Z13.220 - Encounter for screening for lipoid disorders, Z71.89 - Other specified counseling Glucose Fasting 12/16/23 Z00.01 - Encounter for general adult medical examination with abnormal findings, Z13.1 - Encounter for screening for diabetes mellitus, Z13.220 - Encounter for screening for lipoid disorders, Z71.89 - Other specified counseling Vitamin D 25-OH Total 12/16/23 Z13.1 - Encounter for screening for diabetes mellitus, Z13.220 - Encounter for screening for lipoid disorders Referrals Urology Referral Z87.442 - Personal history of urinary calculi, Z87.448 - Personal history of other diseases of urinary system Dermatology Referral L70.9 - Acne, unspecified, L71.9 - Rosacea, unspecified Coding Level of Care Code Est Pt Prev Care 40-64y(25370) Diagnoses Annual visit for general adult medical examination with abnormal findings Z00.01 History of kidney stones Z87.442 History of hematuria Z87.448 Excoriated acne L70.5 Acne type: excoriated acne Encounter for counseling regarding advance directives Z71.89 Additional Codes RAJESH-7 Assessment Billing - RAJESH-7 Assessment Tool: RAJESH-7 Assessment 30277 ([id number]) Vital Signs *Quality* - Advance Care Planning discussion: Completed/Scanned ([id number]) Vital Signs *Quality* - Time spent: 16-45 minutes ([id number])
== END 2023-12-16 10:18 | disposition home or self-care (01) ==
PROVIDERS: PCP Internal Medicine; Visit Provider Internal Medicine
DX: Z00.00 Encounter for general adult medical examination without abnormal findings (principal); Z87.442 Personal history of urinary calculi; Z87.448 Personal history of other diseases of urinary system; L70.5 Acne excoriee; Z71.89 Other specified counseling
CPT/HCPCS: 1123F; 99396; 99497

== ENCOUNTER 2023-12-24 07:58 | Outpatient (REF) | payer OTHER, SELFPAY ==
--- NOTE | ~2023-12-24 | US_ITS ---
EXAMINATION: US RETROPERITONEAL LIMITED (RENAL ONLY) CLINICAL INFORMATION: Personal history of other diseases of urinary system. COMPARISON: None available. TECHNIQUE: Real-time imaging of the kidneys. Limited visualization due to bowel gas. FINDINGS: RIGHT KIDNEY: 10.2 x 5.4 x 5.3 cm (SAG x AP x TRV). No hydronephrosis. No renal calculi. Renal cortical thickness is normal. Limited visualization. LEFT KIDNEY: 10.7 x 5.6 x 4.9 cm (SAG x AP x TRV). No hydronephrosis. No renal calculi. Renal cortical thickness is normal. Limited visualization. US/US renal BI IMPRESSION: No hydronephrosis. No renal calculi. Limited visualization.
[2023-12-24 11:51] LABS: Cholesterol 175 mg/dL (<200); Glucose Fasting 90 mg/dL (60-99); HDL Cholesterol 38 mg/dL (>40); LDL Cholesterol Calculated 111 mg/dL (<100); Triglycerides 133 mg/dL (<150)
[2023-12-24 12:06] LABS: Vitamin D 25-OH Total 78.7 ng/mL (>30)
== END 2023-12-24 07:59 | disposition home or self-care (01) ==
LOC: HO.HMGCX 07:58
PROVIDERS: PCP Internal Medicine; Visit Provider Internal Medicine
DX: Z71.89 Other specified counseling (principal); Z87.448 Personal history of other diseases of urinary system; Z87.442 Personal history of urinary calculi; Z13.6 Encounter for screening for cardiovascular disorders; Z13.220 Encounter for screening for lipoid disorders; Z13.1 Encounter for screening for diabetes mellitus; Z00.01 Encounter for general adult medical examination with abnormal findings
CPT/HCPCS: 36415; 76775; 80061; 82306; 82947

== ENCOUNTER → 2024-01-26 14:49 | Outpatient (REF) | payer OTHER, SELFPAY | LOC: HO.SL 14:49 | PROVIDERS: PCP Internal Medicine; Visit Provider Internal Medicine | DX: G47.30 Sleep apnea, unspecified (principal); G47.19 Other hypersomnia; R06.83 Snoring | CPT/HCPCS: 95806 ==

== ENCOUNTER → 2024-01-26 15:14 | Outpatient (BNV) | payer OTHER, SELFPAY | PROVIDERS: PCP Internal Medicine; Visit Provider Internal Medicine | DX: R06.83 Snoring (principal) | CPT/HCPCS: 95806 ==

== ENCOUNTER 2024-02-11 10:55 | Outpatient (REF) | payer OTHER, SELFPAY | END 2024-02-11 10:56 | disposition home or self-care (01) | LOC: HO.LNP 10:55 | PROVIDERS: PCP Internal Medicine; Visit Provider Nurse Practitioner Family | DX: N39.0 Urinary tract infection, site not specified (principal); R35.1 Nocturia; N20.0 Calculus of kidney | CPT/HCPCS: 81003; 87086; 99202 ==

== ENCOUNTER 2024-02-11 10:55 | Outpatient (AMB) | payer OTHER, SELFPAY ==
--- NOTE | 2024-02-11 10:58 | A.OFFVIS_ITS ---
Intake Visit Reasons: history of kidney stones Intake Note: New Patient presents for initial visit for history of kidney stone Urology Medications: none Blood Thinner: none Collections Professional Required: No Accompanied by: Self / Same As Patient Allergies Iodinated Contrast Media [Iodinated Contrast Media - IV Dye] Allergy (Severe, Verified 02/11/24 11:13) ANGIOEDEMA nogueira Adverse Reaction (Verified 02/11/24 11:13) Anaphylaxis vianca fruit Adverse Reaction (Uncoded 02/11/24 11:13) Anaphylaxis Medication List - Last Reviewed 02/11/24 by Bradford Bautista albuterol sulfate 90 mcg/actuation 2 inhalations inhalation Q6H PRN fluticasone propionate 110 mcg/actuation 1 puff PO BID norethindrone acetate 5 mg PO DAILY HPI Comments Details: Nanda is a very pleasant 43-year-old female patient of . She has a past medical history of rosacea, nephrolithiasis, acne, polyarthralgia, history of seizure last seizure in 2000, carpal tunnel, Karen syndrome, endometriosis, asthma, and fibromyalgia. She presents to the office today as a new patient for her longstanding history of nephrolithiasis. In discussion with the patient today she reports a longstanding history of recurrent urinary tract infections over the last 20 years and typically takes jwip-bxs-skquyri cranberry pills however does not feel this is helpful. She also reports a history of nephrolithiasis however never requiring surgical intervention. She reports initial presentation of nephrolithiasis was in 2004. She reports following up with her PCP in discussing these ongoing urological issues at which a renal ultrasound was ordered and referral to Urology was made for further assessment evaluation. Renal ultrasound results reviewed with the patient today. 01/09 bilateral kidney with no hydronephrosis or renal calculi. Limited visualization. In office urinalysis results reviewed with the patient today. 3+ leukocytes negative nitrates. Patient continues to report urinary frequency, nocturia, and intermittent bilateral flank pain. She otherwise denies incontinence, hematuria, dysuria, foul smelling urine, changes to urinary stream, flank pain, fever, and or chills. She also reports noting nocturia x2 years. She reports her recent sleep study however report remains pending. We discussed correlation of sleep apnea and nocturia. Discussed possible near future in office cystoscopy and or microgen if symptoms continue and or worsen. She does report feeling UTI symptoms initiate after sexual intercourse. When asked she also reports a history of IBS. We discussed correlation of bowel issues in relation to recurrent urinary tract infections. She otherwise offers no other issues or concerns at this time. [facility] Medical History Rosacea History of hematuria History of kidney stones Loud snoring Excessive daytime sleepiness Disturbed sleep rhythm Acne Multiple food allergies Knee pain, bilateral Right upper quadrant abdominal pain Polyarthralgia Osteoarthritis of right shoulder Arthritis, multiple joint involvement Near syncope History of seizures History of carpal tunnel syndrome Chest tightness Shortness of breath on exertion Horners syndrome History of benign schwannoma Endometriosis Asthma Fibromyalgia Surgical History History of neck surgery History of adenoidectomy S/P correction of deviated nasal septum H/O elbow surgery History of carpal tunnel surgery History of tonsillectomy Family History Father Diabetes mellitus DVT (deep venous thrombosis) HTN (hypertension) Mother Osteoarthritis Maternal Grandmother Diabetes mellitus HTN (hypertension) Paternal Grandmother Throat cancer Brother No problems noted. Son No problems noted. 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 Sexual orientation: Straight/Heterosexual Gender identity: Female Cognitive needs: No Hearing needs: No Vision needs: No Female Reproductive History Menstrual Age of Menarche: 13 Review of Systems Const All systems reviewed & are unremarkable except as noted in HPI and below Physical Exam Const General: cooperative, healthy appearing, comfortable, no acute distress, well developed, alert and awake Orientation/consciousness: patient oriented x3 Limitations: no limitations HEENT Head: Yes normal to inspection, Yes normocephalic and Yes atraumatic Ears: hearing grossly normal bilaterally Eyes General: appearance normal, both eyes and all related structures Neck Neck: Yes normal visual inspection and Yes trachea midline Chest Chest palpation & inspection: normal inspection of the chest Resp Effort & Inspection: normal respiratory effort and able to speak in complete sentences Cardio Rate: regular rate GI Inspection: Yes normal to inspection General: Yes no CVA tenderness Back/Spine/Pelvis Back: no CVA tenderness Skin General skin exam: no rashes or lesions noted Neuro General: patient oriented x3 Extrem General: Yes normal to inspection Psych Appearance: grossly normal and well kempt Mental Status: mental status grossly normal Speech and movement: Normal speech and movement present and Clear speech present Affect: normal affect Attitude: cooperative Thought process: Normal thought process present Thought content: Normal thought content present Insight: Fair insight present (Psych) Judgement: Fair judgement present (Psych) Results AMB Urinalysis, Automated UA Leukoctes 500 [place]/uL Last Edit by [employer] on 02/11/24 11:29 UA Nitrite Negative Last Edit by [employer] on 02/11/24 11:29 UA Urobilinogen 0.2 mg/dL Last Edit by [employer] on 02/11/24 11:29 UA Protein 0 mg/dL Last Edit by [employer] on 02/11/24 11:29 UA pH 6.0 Last Edit by [employer] on 02/11/24 11:29 UA Blood 10 Rod[place]/uL Last Edit by [employer] on 02/11/24 11:29 UA Specific [place] 1.015 Last Edit by [employer] on 02/11/24 11:29 UA Ketone Last Edit by [employer] on 02/11/24 11:29 UA Bilirubin 0 mg/dL Last Edit by [employer] on 02/11/24 11:29 UA Glucose 0 mg/dL Last Edit by [employer] on 02/11/24 11:29 Results Reviewed Results Reviewed: Laboratory Last Values Urine pH (Auto) 6.0 02/11/24 10:59 Specific [place] (Auto) 1.015 02/11/24 10:59 Urine Protein (Auto) 0 mg/dL 02/11/24 10:59 Glucose (UA)(Auto) 0 mg/dL 02/11/24 10:59 Urine Blood (Auto) 10 [place]/uL 02/11/24 10:59 Urine Nitrite (Auto) Negative 02/11/24 10:59 Urine Bilirubin (Auto) 0 mg/dL 02/11/24 10:59 Urine Urobilinogen (Auto) 0.2 mg/dL 02/11/24 10:59 Leukocyte Esterase (Auto) 500 [place]/uL 02/11/24 10:59 Date of Service: 12/24/23 EXAMINATION: US RETROPERITONEAL LIMITED (RENAL ONLY) FINDINGS: RIGHT KIDNEY: 10.2 x 5.4 x 5.3 cm (SAG x AP x TRV). No hydronephrosis. No renal calculi. Renal cortical thickness is normal. Limited visualization. LEFT KIDNEY: 10.7 x 5.6 x 4.9 cm (SAG x AP x TRV). No hydronephrosis. No renal calculi. Renal cortical thickness is normal. Limited visualization. IMPRESSION: No hydronephrosis. No renal calculi. Limited visualization. Assessment & Plan Assessment & Plan (1) Recurrent UTI: Code(s): N39.0 - Urinary tract infection, site not specified Category: Medical (2) Nocturia: Code(s): R35.1 - Nocturia Category: Medical (3) Nephrolithiasis: Code(s): N20.0 - Calculus of kidney Category: Medical Plan In office urinalysis results reviewed with the patient today; will send for urine culture. Recent renal imaging results reviewed with the patient today; as noted above. Discussed at length potential causes of recurrent urinary tract infections. We discussed bladder triggers/irritants. Start Bactrim as discussed and prescribed. Prescription provided for postcoital antibiotic therapy. Will await sleep study results. Discussed UTI prevention with D mannose supplement, vitamin-C, increasing fluid intake, behavioral therapy with timed voiding, perineal hygiene and postcoital voiding, and management of constipation with stool softeners and increased fiber intake. Discussed possible near future in office cystoscopy and or microgen if symptoms continue and or worsen or for further assessment evaluation. Follow-up in 1 month with [facility]; or sooner with any issues, concerns, and or questions. Orders: Orders AMB Urinalysis Automated Today Z13.9 - Encounter for screening, unspecified Urine Culture Today Z13.9 - Encounter for screening, unspecified Medications: New nitrofurantoin macrocrystal must administer with a meal/food post coital 50 mg PO BEDTIME PRN 90 caps 1RF post coital 90 days sulfamethoxazole-trimethoprim 800-160 mg (Bactrim DS) 1 tab PO BID 14 tabs 0RF 7 days N39.0 - Urinary tract infection, site not specified Patient Instructions: The patient had an opportunity to ask questions regarding the treatment plan. All questions were answered. Physical exam, labs, and imaging were discussed and reviewed in detail. As well as risks, benefits, and discussion of treatment choices. No major barriers to understanding were identified. The patient expressed understanding and agreement with the above treatment plan. The patient was made aware they should contact our office by phone for worsening of their current condition, the appearance of new symptoms, or with any questions or concerns. Compliance is encouraged with any medications and follow up testing that is ordered. It is a privilege to be allowed the opportunity to participate in? your urological care.? Again, if you have any questions or concerns If you have any questions or concerns please do not hesitate to contact me. The office is [phone]. This note is constructed using voice recognition software. While every effort has been made to ensure accuracy tableau lead errors may have been included. Yours sincerely, JESSICA Givens Coding Level of Care Code New Pt Level 4 (14159) Diagnoses Recurrent UTI N39.0 Nocturia R35.1 Nephrolithiasis N20.0
== END 2024-02-11 11:44 | disposition home or self-care (01) ==
PROVIDERS: PCP Internal Medicine; Visit Provider Nurse Practitioner Family
DX: N39.0 Urinary tract infection, site not specified (principal); R35.1 Nocturia; N20.0 Calculus of kidney; Z13.9 Encounter for screening, unspecified
CPT/HCPCS: 99204

== ENCOUNTER 2024-03-05 11:20 | Outpatient (AMB) | payer OTHER, SELFPAY ==
--- NOTE | 2024-03-05 11:18 | MHC.PC.OV ---
Intake Visit Reasons: discuss sleep study option Andr. [phone] Intake Note: Pt is having a telehealth visit to discuss sleep study Allergies Iodinated Contrast Media [Iodinated Contrast Media - IV Dye] Allergy (Severe, Verified 03/05/24 11:58) ANGIOEDEMA nogueira Adverse Reaction (Verified 03/05/24 11:58) Anaphylaxis vianca fruit Adverse Reaction (Uncoded 03/05/24 11:58) Anaphylaxis Medication List - Last Reconciled 03/05/24 by Marcela Marie MD albuterol sulfate 90 mcg/actuation 2 inhalations inhalation Q6H PRN fluticasone propionate 110 mcg/actuation 1 puff PO BID norethindrone acetate 5 mg PO DAILY Tobacco use date assessed: 03/05/24 Dental Screening Dental Screen Date: 03/05/24 Did you have a dental visit in the last 12 months?: Yes Did you have a dental problem in the last 6 months where you did not have access to dental care?: No Was dental information given to patient?: Patient has dentist HPI discuss sleep study option Andr. [phone] HPI Details 43-year-old lady here today complaining of persistent nocturnal awakenings. She has no difficulty going to sleep, however she keeps waking up at least 2-3 times at night to urinate. She has limited her intake of fluids prior to going to sleep, stopped drinking any caffeinated drinks, empties her bladder regularly and before she goes to sleep. However symptoms are persisting. She has been seen by Urology with workup unremarkable. Patient states that her urologist initially thinks that her nocturia is tied to her having sleep apnea, however her Home Sleep study came back with normal findings, no sleep apnea seen. . Patient however thinks that her home sleep study was inaccurate as she hardly slept well doing her test, states that she probably slept only about 2 hours during the whole study, kept waking up. She has tried [id number] Unisom which affords some improvement, and has tried Benadryl which made her very jittery. Does not really want to take anything on a regular basis to help her sleep [facility] Medical History (Updated 03/05/24 @ 12:19 by Marcela Marie MD) Frequent nocturnal awakening Rosacea History of hematuria History of kidney stones Loud snoring Excessive daytime sleepiness Disturbed sleep rhythm Acne Multiple food allergies Knee pain, bilateral Right upper quadrant abdominal pain Polyarthralgia Osteoarthritis of right shoulder Arthritis, multiple joint involvement Near syncope History of seizures History of carpal tunnel syndrome Chest tightness Shortness of breath on exertion Horners syndrome History of benign schwannoma Endometriosis Asthma Fibromyalgia Surgical History History of neck surgery History of adenoidectomy S/P correction of deviated nasal septum H/O elbow surgery History of carpal tunnel surgery History of tonsillectomy Family History Father Diabetes mellitus DVT (deep venous thrombosis) HTN (hypertension) Mother Osteoarthritis Maternal Grandmother Diabetes mellitus HTN (hypertension) Paternal Grandmother Throat cancer Brother No problems noted. Son No problems noted. 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 Sexual orientation: Straight/Heterosexual Gender identity: Female Cognitive needs: No Hearing needs: No Vision needs: No Female Reproductive History Menstrual Age of Menarche: 13 Questionnaire Thrive Questionnaire Date Thrive assessed: 12/09/23 I am a: Patient What is your living situation today?: I have a steady place to live Within the past 12 months, did the food you bought not last and you didn't have the money to get more?: Never true Within the past 12 months, did you worry whether your food would run out before you got money to buy more?: Never true Do you have trouble paying for medicines?: No Do you have trouble getting transportation to medical appointments?: No Do you have trouble paying your heating and electricity bill?: No Do you have trouble taking care of your child, family member or friend?: No Do you have trouble with day-to-day activities such as bathing, preparing meals, shopping, managing finances, etc.?: No Are you currently unemployed and looking for a job?: No Are you interested in more education?: No Please select the resources that you would like help with: None Currently or been in a relationship where the following occur: No concerns reported THRIVE Score: 0 RAJESH-7 AMB Questionnaire RAJESH-7 Date RAJESH - 7 assessed: 12/16/23 Source: Developed by Drs. Todd Sanchez, Eva Serrato, Vimal Sevilla and colleagues, with an educational frank from [employer]. Review of Systems Const All systems reviewed & are unremarkable except as noted in HPI and below Denies urinary frequency, Denies difficulty voiding, Denies post void dribbling, Denies dysuria, Denies prolapse symptoms, Denies urinary incontinence and Denies urinary hesitancy Physical exam (Primary Care) Tobacco/Smoking Status: Tobacco use Status Tobacco use date assessed 03/05/24 03/05/24 11:19 Patient Tobacco Use Status Never used Tobacco 03/05/24 11:19 e-Cigarette/Vaping Use Never Used 03/05/24 11:19 Thrive Assessment: Date of Thrive Assessment Date Thrive assessed 12/09/23 03/05/24 11:19 Currently or been in a relationship where the following occur: No concerns reported Telehealth Telehealth Telehealth Platform: [employer] Location of provider rendering services: practice address Location of patient: address on file Patient Identification confirmed using: Name, : Yes Telehealth method: video Patient verbally consented to treatment: Yes Patient verbally consented to billing insurance company: Yes Patient informed of any privacy concerns related to visit: Yes Minutes spent on Phone/Video with Pt.: 15 Coding Level of Care Code Tele Est Pt Level 3 (43744) Diagnoses Excessive daytime sleepiness G47.19 Disturbed sleep rhythm G47.20 Loud snoring R06.83 Frequent nocturnal awakening G47.00 Assessment & Plan Assessment & Plan (1) Excessive daytime sleepiness: Code(s): G47.19 - Other hypersomnia Category: Medical (2) Disturbed sleep rhythm: Code(s): G47.20 - Circadian rhythm sleep disorder, unspecified type Category: Medical (3) Loud snoring: Code(s): R06.83 - Snoring Category: Medical (4) Frequent nocturnal awakening: Code(s): G47.00 - Insomnia, unspecified Category: Medical Plan Will refer to sleep medicine Clinic for further evaluation management, consider doing a repeat in-lab sleep study. Orders: Referrals Sleep Medicine Referral G47.00 - Insomnia, unspecified, G47.19 - Other hypersomnia, G47.20 - Circadian rhythm sleep disorder, unspecified type, R06.83 - Snoring
== END 2024-03-05 14:26 | disposition home or self-care (01) ==
LOC: HO.HMCC 11:20
PROVIDERS: PCP Internal Medicine; Visit Provider Internal Medicine
DX: G47.19 Other hypersomnia (principal); G47.20 Circadian rhythm sleep disorder, unspecified type; R06.83 Snoring; G47.00 Insomnia, unspecified

== ENCOUNTER → 2024-03-05 11:20 | Outpatient (BNVA) | payer OTHER, SELFPAY | PROVIDERS: PCP Internal Medicine; Visit Provider Internal Medicine ==

== ENCOUNTER 2024-03-18 15:11 | Outpatient (AMB) | payer OTHER, SELFPAY ==
--- NOTE | 2024-03-18 15:30 | A.OFFVIS_ITS ---
Intake Visit Reasons: 1m/PVR Intake Note: Patient presents for follow up visit on : nephrolithiasis, recurrent uti, nocturia Urology Medications: macrobid Blood Thinner: none PVR: 0ml's Ceramic Engineer Required: No Accompanied by: Self / Same As Patient Allergies Iodinated Contrast Media [Iodinated Contrast Media - IV Dye] Allergy (Severe, Verified 03/19/24 21:40) ANGIOEDEMA nogueira Adverse Reaction (Verified 03/19/24 21:40) Anaphylaxis vianca fruit Adverse Reaction (Uncoded 03/19/24 21:40) Anaphylaxis Medication List - Last Reconciled 03/19/24 by JESSICA Givens albuterol sulfate 90 mcg/actuation 2 inhalations inhalation Q6H PRN fluconazole 150 mg PO Q3D 2 doses fluticasone propionate 110 mcg/actuation 1 puff PO BID norethindrone acetate 5 mg PO DAILY tadalafil (Cialis) 5 mg PO DAILY 90 days HPI Comments Details: Nanda is a very pleasant 43-year-old female patient of . She has a past medical history of rosacea, nephrolithiasis, acne, polyarthralgia, history of seizure last seizure in 2000, carpal tunnel, Karen syndrome, endometriosis, asthma, and fibromyalgia. She presents to the office today for follow-up. Of note, patient was seen approximately 1 month ago as a new patient for her longstanding history of nephrolithiasis at which time she had been reporting UTI like symptoms and urinalysis noted 3+ leukocytes negative nitrates. She was started on Bactrim and urine culture was sent for further assessment evaluation. These results were reviewed with the patient today. Urine culture 02/09 noted no growth. She reports having completed antibiotic t herapy and feels lower urinary tract symptoms she had been experiencing of urinary frequency has since subsided however now she feels she has a yeast infection as she has vaginal itching and vaginal discharge. In office urinalysis results reviewed with the patient today negative leukocytes, negative nitrates, negative microscopic hematuria. She continues to report nocturia 4 times per night. Previous workup has included a renal ultrasound 01/09 bilateral kidneys with no hydronephrosis or renal calculi. Patient also had recent home sleep study that was negative for sleep apnea however she is having repeat in center sleep study however not scheduled until August 2024. We discussed potential causes for lower urinary tract symptoms patient is experiencing. Discussed possible near future in office cystoscopy and or microgen if symptoms continue and or worsen. She does report feeling UTI symptoms initiate after sexual intercourse. P.r.n. prescription provided for Macrobid postcoital. When asked she also reports a history of IBS. We discussed correlation of bowel issues in relation to recurrent urinary tract infections. She denies incontinence, hematuria, dysuria, foul smelling urine, changes to urinary stream, flank pain, fever, and or chills. She otherwise offers no other issues or concerns at this time. [facility] Medical History Frequent nocturnal awakening Rosacea History of hematuria History of kidney stones Loud snoring Excessive daytime sleepiness Disturbed sleep rhythm Acne Multiple food allergies Knee pain, bilateral Right upper quadrant abdominal pain Polyarthralgia Osteoarthritis of right shoulder Arthritis, multiple joint involvement Near syncope History of seizures History of carpal tunnel syndrome Chest tightness Shortness of breath on exertion Horners syndrome History of benign schwannoma Endometriosis Asthma Fibromyalgia Surgical History History of neck surgery History of adenoidectomy S/P correction of deviated nasal septum H/O elbow surgery History of carpal tunnel surgery History of tonsillectomy Family History Father Diabetes mellitus DVT (deep venous thrombosis) HTN (hypertension) Mother Osteoarthritis Maternal Grandmother Diabetes mellitus HTN (hypertension) Paternal Grandmother Throat cancer Brother No problems noted. Son No problems noted. 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 Sexual orientation: Straight/Heterosexual Gender identity: Female Cognitive needs: No Hearing needs: No Vision needs: No Female Reproductive History Menstrual Age of Menarche: 13 Review of Systems Const All systems reviewed & are unremarkable except as noted in HPI and below Physical Exam Const General: cooperative, healthy appearing, comfortable, no acute distress, well developed, alert and awake Orientation/consciousness: patient oriented x3 Limitations: no limitations HEENT Head: Yes normal to inspection, Yes normocephalic and Yes atraumatic Ears: hearing grossly normal bilaterally Eyes General: appearance normal, both eyes and all related structures Neck Neck: Yes normal visual inspection and Yes trachea midline Chest Chest palpation & inspection: normal inspection of the chest Resp Effort & Inspection: normal respiratory effort and able to speak in complete sentences Cardio Rate: regular rate GI Inspection: Yes normal to inspection General: Yes no CVA tenderness Back/Spine/Pelvis Back: no CVA tenderness Skin General skin exam: no rashes or lesions noted Neuro General: patient oriented x3 Extrem General: Yes normal to inspection Psych Appearance: grossly normal and well kempt Mental Status: mental status grossly normal Speech and movement: Normal speech and movement present and Clear speech present Affect: normal affect Attitude: cooperative Thought process: Normal thought process present Thought content: Normal thought content present Insight: Fair insight present (Psych) Judgement: Fair judgement present (Psych) Office Procedures Post Void Residual Post Residual Void Post Void Residual (PVR): 0 [id number]-[id number] Void Residual by ultrasound Results AMB Urinalysis, Automated UA Leukoctes 15 Catalina/uL Last Edit by [employer] on 03/18/24 16:11 UA Nitrite Last Edit by [employer] on 03/18/24 16:11 UA Urobilinogen 0.2 mg/dL Last Edit by [employer] on 03/18/24 16:11 UA Protein 0 mg/dL Last Edit by [employer] on 03/18/24 16:11 UA pH 6.0 Last Edit by [employer] on 03/18/24 16:11 UA Blood 0 Rodo/uL Last Edit by [employer] on 03/18/24 16:11 UA Specific Pickrell 1.015 Last Edit by [employer] on 03/18/24 16:11 UA Ketone Last Edit by [employer] on 03/18/24 16:11 UA Bilirubin 0 mg/dL Last Edit by Bradford Bautista on 03/18/24 16:11 UA Glucose 0 mg/dL Last Edit by Bradford Bautista on 03/18/24 16:11 Results Reviewed Results Reviewed: Laboratory Last Values Urine pH (Auto) 6.0 03/18/24 16:01 Specific Pickrell (Auto) 1.015 03/18/24 16:01 Urine Protein (Auto) 0 mg/dL 03/18/24 16:01 Glucose (UA)(Auto) 0 mg/dL 03/18/24 16:01 Urine Blood (Auto) 0 Rodo/uL 03/18/24 16:01 Urine Bilirubin (Auto) 0 mg/dL 03/18/24 16:01 Urine Urobilinogen (Auto) 0.2 mg/dL 03/18/24 16:01 Leukocyte Esterase (Auto) 15 Catalina/uL 03/18/24 16:01 Assessment & Plan Assessment & Plan (1) Yeast infection: Code(s): B37.9 - Candidiasis, unspecified Category: Medical (2) Nephrolithiasis: Code(s): N20.0 - Calculus of kidney Category: Medical (3) Nocturia: Code(s): R35.1 - Nocturia Category: Medical (4) Recurrent UTI: Code(s): N39.0 - Urinary tract infection, site not specified Category: Medical Plan In office urinalysis results reviewed with the patient today. Discussed at length potential causes of recurrent urinary tract infections. We discussed bladder triggers/irritants. Start Cialis 5 mg daily Discuss trial of Tylenol PM prior to bedtime to assist with episodes of nocturia. Prescription provided for postcoital antibiotic therapy. Discussed UTI prevention with D mannose supplement, vitamin-C, increasing fluid intake, behavioral therapy with timed voiding, perineal hygiene and postcoital voiding, and management of constipation with stool softeners and increased fiber intake. Discussed possible near future in office cystoscopy and or microgen if symptoms continue and or worsen or for further assessment evaluation. Discussed referral to pelvic floor therapy; she will think about this. Follow-up in 1-3 months with PVR; or sooner with any issues, concerns, and or questions. Orders: Orders AMB Urinalysis Automated 03/18/24 Z13.9 - Encounter for screening, unspecified AMB Post Void Residual by ultrasound 03/18/24 N39.0 - Urinary tract infection, site not specified Medications: New tadalafil (Cialis) [facility] [address] [id number] 5 mg PO DAILY 90 days 90 tabs 0RF fluconazole 150 mg PO Q3D 2 doses 2 tabs 0RF B49 - Unspecified mycosis Patient Instructions: The patient had an opportunity to ask questions regarding the treatment plan. All questions were answered. Physical exam, labs, and imaging were discussed and reviewed in detail. As well as risks, benefits, and discussion of treatment choices. No major barriers to understanding were identified. The patient expressed understanding and agreement with the above treatment plan. The patient was made aware they should contact our office by phone for worsening of their current condition, the appearance of new symptoms, or with any questions or concerns. Compliance is encouraged with any medications and follow up testing that is ordered. It is a privilege to be allowed the opportunity to participate in? your urological care.? Again, if you have any questions or concerns If you have any questions or concerns please do not hesitate to contact me. The office is [phone]. This note is constructed using voice recognition software. While every effort has been made to ensure accuracy diversional therapist errors may have been included. Yours sincerely, AMILCAR Givens-FARIDEH Coding Level of Care Code Est Pt Level 4 (42240) Diagnoses Yeast infection B37.9 Nephrolithiasis N20.0 Nocturia R35.1 Recurrent UTI N39.0 CPT Codes Post Residual Void - PVR CPT Code: 25992-Qzox Void Residual by ultrasound ([id number])
== END 2024-03-18 16:03 | disposition home or self-care (01) ==
LOC: HO.HUSH 15:12
PROVIDERS: PCP Internal Medicine; Visit Provider Nurse Practitioner Family
DX: B37.9 Candidiasis, unspecified (principal); N20.0 Calculus of kidney; R35.1 Nocturia; N39.0 Urinary tract infection, site not specified
CPT/HCPCS: 99214

== ENCOUNTER → 2024-03-18 15:11 | Outpatient (BNVA) | payer OTHER, SELFPAY | PROVIDERS: PCP Internal Medicine; Visit Provider Nurse Practitioner Family | DX: B37.9 Candidiasis, unspecified (principal); N20.0 Calculus of kidney; R35.1 Nocturia; N39.0 Urinary tract infection, site not specified | CPT/HCPCS: 51798; 81003; 99212 ==

== ENCOUNTER 2024-04-02 07:54 | Outpatient (REF) | payer OTHER, SELFPAY ==
--- NOTE | ~2024-04-02 | MM_ITS ---
EXAMINATION: MM SCREENING DIGITAL BREAST TOMOSYNTHESIS, BILATERAL CLINICAL INFORMATION: Screening. Asymptomatic. COMPARISON: Mammography: Comparison is made with available priors TECHNIQUE: Digital breast mammography with tomosynthesis is performed in both the craniocaudal and mediolateral oblique views along with computer-aided detection (CAD). FINDINGS: The breasts are heterogeneously dense, which may obscure small masses (ACR BI-RADS breast composition Category c). There are no significant masses, abnormal calcifications, or other abnormalities. MM/MM tomosynthesis screening BI IMPRESSION: No mammographic evidence of malignancy. ASSESSMENT: BI-RADS BI-RADS 1 - Negative RECOMMENDATION: Routine annual mammography screening. 1 year F/U This examination should not preclude the clinical evaluation of a suspicious palpable abnormality. This patient's information was entered into a reminder system with a target due date for their next mammogram. Electronically signed by: Janice Miller DO 04/09/2024 01:03 PM [place]
== END 2024-04-02 07:55 | disposition home or self-care (01) ==
LOC: HO.MAMMO 07:54
PROVIDERS: PCP Internal Medicine; Visit Provider Internal Medicine
DX: Z12.31 Encounter for screening mammogram for malignant neoplasm of breast (principal)
CPT/HCPCS: 77063; 77067

== ENCOUNTER → 2024-04-02 08:00 | Outpatient (BNV) | payer OTHER, SELFPAY | PROVIDERS: PCP Internal Medicine; Visit Provider Internal Medicine | DX: Z12.31 Encounter for screening mammogram for malignant neoplasm of breast (principal) | CPT/HCPCS: 77063; 77067 ==

== ENCOUNTER 2024-04-13 11:20 | Outpatient (REF) | payer OTHER, SELFPAY ==
[2024-04-13 13:18] LABS: Appearance Urine Clear; Color Urine Yellow; Glucose Urine UA Negative (Negative); Leukocyte Esterase Urine Trace (Negative); Nitrite Urine Negative (Negative); PH 6.5 (5.0-9.0); UMIC TRIGGER UA YES; Urine Blood Negative (Negative); Urine Ketones Negative (Negative); Urine Protein Negative (Neg-Trace)
[2024-04-13 13:22] LABS: Bacteria Urine None Seen (None Seen); Hyaline Casts Urine 0-2 /LPF (0-2); RBC Urine 0-2 /HPF (0-2); Squamous Epithelial Cell Urine 0-2 /HPF (0-2); WBC Urine 0-5 /HPF (0-5)
== END 2024-04-13 11:21 | disposition home or self-care (01) ==
LOC: HO.HMGCLDS 11:20
PROVIDERS: PCP Internal Medicine; Visit Provider Nurse Practitioner Family
DX: N39.0 Urinary tract infection, site not specified (principal)
CPT/HCPCS: 81001; 87086

== ENCOUNTER 2024-05-10 15:04 | Outpatient (AMB) | payer OTHER, SELFPAY ==
--- NOTE | 2024-05-10 15:05 | MHC.OFFVIS ---
Intake Visit Reasons: 2M follow up Intake Note: Patient is present for 2M F/U Urology Medication:NONE Antibiotic Allergy:NONE Blood Thinner:NONE TODAY'S PVR:0ML'S Press Operator Required: No Allergies Iodinated Contrast Media [Iodinated Contrast Media - IV Dye] Allergy (Severe, Verified 05/10/24 15:41) ANGIOEDEMA nogueira Adverse Reaction (Verified 05/10/24 15:41) Anaphylaxis vianca fruit Adverse Reaction (Uncoded 05/10/24 15:41) Anaphylaxis Medication List - Last Reconciled 05/10/24 by AMILCAR Givens- albuterol sulfate 90 mcg/actuation 2 inhalations inhalation Q6H PRN fluticasone propionate 110 mcg/actuation 1 puff PO BID norethindrone acetate 5 mg PO DAILY HPI Comments Details: Nanda is a 43-year-old female patient of . She has a past medical history of rosacea, nephrolithiasis, acne, polyarthralgia, history of seizure last seizure in 2000, carpal tunnel, Karen syndrome, endometriosis, asthma, and fibromyalgia. She presents to the office today for follow-up. Of note, patient was seen approximately 2 month ago at which time she was trialed on tadalafil for bladder instability. In discussion with the patient today she reports not having started the medication as she was reluctant to taking medications. She discusses having reviewed side effects and felt she did not want to trial the medication. She reports having called the office a few weeks ago as she had been experiencing symptoms of nephrolithiasis however these symptoms resolved 1-2 days later. She continues to report episodes of nocturia however feels when she takes Tylenol PM she experiences less episodes of nocturia. In office urinalysis results reviewed with the patient today. PVR 0 mL. Previous workup has included a renal ultrasound 01/09 bilateral kidneys with no hydronephrosis or renal calculi. Patient also had recent home sleep study that was negative for sleep apnea however she is having repeat in center sleep study however not scheduled until August 2024. We discussed potential causes for lower urinary tract symptoms patient is experiencing. Discussed possible near future in office cystoscopy and or microgen if symptoms continue and or worsen. When asked she also reports a history of IBS. We discussed correlation of bowel issues in relation to recurrent urinary tract infections. She denies incontinence, hematuria, dysuria, foul smelling urine, changes to urinary stream, flank pain, fever, and or chills. She otherwise offers no other issues or concerns at this time. [facility] Medical History (Reviewed 03/19/24 @ 22:01 by AMILCAR [facility]) Frequent nocturnal awakening Rosacea History of hematuria History of kidney stones Loud snoring Excessive daytime sleepiness Disturbed sleep rhythm Acne Multiple food allergies Knee pain, bilateral Right upper quadrant abdominal pain Polyarthralgia Osteoarthritis of right shoulder Arthritis, multiple joint involvement Near syncope History of seizures History of carpal tunnel syndrome Chest tightness Shortness of breath on exertion Horners syndrome History of benign schwannoma Endometriosis Asthma Fibromyalgia Surgical History History of neck surgery History of adenoidectomy S/P correction of deviated nasal septum H/O elbow surgery History of carpal tunnel surgery History of tonsillectomy Family History Father Diabetes mellitus DVT (deep venous thrombosis) HTN (hypertension) Mother Osteoarthritis Maternal Grandmother Diabetes mellitus HTN (hypertension) Paternal Grandmother Throat cancer Brother No problems noted. Son No problems noted. 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 Sexual orientation: Straight/Heterosexual Gender identity: Female Cognitive needs: No Hearing needs: No Vision needs: No Female Reproductive History Menstrual Age of Menarche: 13 Review of Systems Const All systems reviewed & are unremarkable except as noted in HPI and below Physical Exam Const General: cooperative, healthy appearing, comfortable, no acute distress, well developed, alert and awake Orientation/consciousness: patient oriented x3 Limitations: no limitations HEENT Head: Yes normal to inspection, Yes normocephalic and Yes atraumatic Ears: hearing grossly normal bilaterally Eyes General: appearance normal, both eyes and all related structures Neck Neck: Yes normal visual inspection and Yes trachea midline Chest Chest palpation & inspection: normal inspection of the chest Resp Effort & Inspection: normal respiratory effort and able to speak in complete sentences Cardio Rate: regular rate GI Inspection: Yes normal to inspection General: Yes no CVA tenderness Back/Spine/Pelvis Back: no CVA tenderness Skin General skin exam: no rashes or lesions noted Neuro General: patient oriented x3 Extrem General: Yes normal to inspection Psych Appearance: grossly normal and well kempt Mental Status: mental status grossly normal Speech and movement: Normal speech and movement present and Clear speech present Affect: normal affect Attitude: cooperative Thought process: Normal thought process present Thought content: Normal thought content present Insight: Fair insight present (Psych) Judgement: Fair judgement present (Psych) Office Procedures Post Void Residual Post Residual Void Post Void Residual (PVR): 0 52022-[id number] Void Residual by ultrasound Results AMB Urinalysis, Automated UA Leukoctes 70 [place]/uL Last Edit by LUIS Parker on 05/10/24 15:21 UA Nitrite Negative Last Edit by LUIS Parker on 05/10/24 15:21 UA Urobilinogen 0.2 mg/dL Last Edit by LUIS Parker on 05/10/24 15:21 UA Protein 0 mg/dL Last Edit by LUIS Parker on 05/10/24 15:21 UA pH 6.0 Last Edit by LUIS Parker on 05/10/24 15:21 UA Blood 10 Rodo/uL Last Edit by LUIS Parker on 05/10/24 15:21 UA Specific [place] 1.015 Last Edit by LUIS Parker on 05/10/24 15:21 UA Ketone Negative Last Edit by LUIS Parker on 05/10/24 15:21 UA Bilirubin 0 mg/dL Last Edit by LUIS Parker on 05/10/24 15:21 UA Glucose 0 mg/dL Last Edit by LUIS Parker on 05/10/24 15:21 Results Reviewed Results Reviewed: Laboratory Last Values Urine pH (Auto) 6.0 05/10/24 15:20 Specific [place] (Auto) 1.015 05/10/24 15:20 Urine Protein (Auto) 0 mg/dL 05/10/24 15:20 Glucose (UA)(Auto) 0 mg/dL 05/10/24 15:20 Urine Ketones (Auto) Negative 05/10/24 15:20 Urine Blood (Auto) 10 Rodo/uL 05/10/24 15:20 Urine Nitrite (Auto) Negative 05/10/24 15:20 Urine Bilirubin (Auto) 0 mg/dL 05/10/24 15:20 Urine Urobilinogen (Auto) 0.2 mg/dL 05/10/24 15:20 Leukocyte Esterase (Auto) 70 [place]/uL 05/10/24 15:20 Assessment & Plan Assessment & Plan (1) Nephrolithiasis: Code(s): N20.0 - Calculus of kidney Category: Medical (2) Nocturia: Code(s): R35.1 - Nocturia Category: Medical Plan In office urinalysis results reviewed with the patient today. PVR 0 mL We discussed bladder triggers/irritants. Discussed UTI prevention with D mannose supplement, vitamin-C, increasing fluid intake, behavioral therapy with timed voiding, perineal hygiene and postcoital voiding, and management of constipation with stool softeners and increased fiber intake. Discussed possible near future in office cystoscopy and or microgen if symptoms continue and or worsen or for further assessment evaluation. Discussed referral to pelvic floor therapy; she will think about this. Will obtain renal ultrasound in 6 months We discussed further metabolic workup to include Litholink Follow-up in 6 months with PVR; or sooner with any issues, concerns, and or questions. Orders: Orders AMB Urinalysis Automated Today Z13.9 - Encounter for screening, unspecified US renal BI 6 Months N20.0 - Calculus of kidney Patient Instructions: The patient had an opportunity to ask questions regarding the treatment plan. All questions were answered. Physical exam, labs, and imaging were discussed and reviewed in detail. As well as risks, benefits, and discussion of treatment choices. No major barriers to understanding were identified. The patient expressed understanding and agreement with the above treatment plan. The patient was made aware they should contact our office by phone for worsening of their current condition, the appearance of new symptoms, or with any questions or concerns. Compliance is encouraged with any medications and follow up testing that is ordered. It is a privilege to be allowed the opportunity to participate in? your urological care.? Again, if you have any questions or concerns If you have any questions or concerns please do not hesitate to contact me. The office is [phone]. This note is constructed using voice recognition software. While every effort has been made to ensure accuracy director of channel marketing errors may have been included. Yours sincerely, AMILCAR Givens-BC Coding Level of Care Code Est Pt Level 3 (48779) Diagnoses Nephrolithiasis N20.0 Nocturia R35.1 CPT Codes Post Residual Void - PVR CPT Code: 81555-Qzae Void Residual by ultrasound ([id number])
--- OUTSIDE RECORDS SUMMARY | 2024-05-10 15:06 | XMS_ITS | Continuity of Care Document ---
Author Organization [facility] are Address [address] [place] [address] Phone Care Team Providers Care Traffic Manager Name Role Phone Geronimo Artis MD Unavailable Unavailable Procedures Procedure Date Upper GI endoscopy, w/biopsy Advance Directives Directive Yes / No Effective Date File Name No Information Encounters Encounter Description Practice Location Reason(s) For Visit Diagnoses Date Provider [facility], [address], [place], [id number], [place] tel:[phone] [facility] No Information [address], [address], [place], [place], [id number], [place]. tel:[phone] Family History Family Member Type Diagnosis Age At Onset No Information Payers Payer name Insurance type Covered constitution party ID Authoriza tion(s) [facility] CI [id number] Social History Type Description Quantity Date Captured Comments Sex Female Smoking Status No Information Chief Complaint And Reason For Visit No Information History Of Present Illness Encounter Date Complaint History Of Prese nt Illness No Information Instructions Date Instruction Additional Infor mation No Information Assessments Type Assessment Date No Information
--- OUTSIDE RECORDS SUMMARY | 2024-05-10 15:06 | XMS_ITS | Continuity of Care Document ---
Author Name [facility] Organization [facility] Care Team Providers Care Outdoor Adventure Instructor Name Role Phone [facility] Unavailable Unavailable Problems Combined list of problems from Department of Defense and Veterans Affairs facilities. It does not include entries that were removed or entered in error. Problem Status Onset Date Problem Type Date of Resolution Comments Source Fibromyalgia Active Condition DoD Mild intermittent asthma, uncomplicated Active Condition DoD Epigastric pain Active Condition DoD Hypoactive sexual desire disorder Active Condition DoD Pelvic and perineal pain Active Condition DoD Allergies, Adverse Reactions, Alerts Combined list of allergies from Department of Defense and Veterans Affairs facilities. It does not include entries that were removed or entered in error. Substance Category Reaction Severity Reaction type Status Date Reported Comments Source No Known Allergies Drug allergy (disorder) active 04/25/2016 [facility] Immunizations Combined list of available immunizations from the Department of Defense and Veterans Affairs facilities. Immunization Series Date Given Administered By Site Reaction Lot Number CVX Code Drug Second Ride Fare Collector Status Comments Source tuberculin skin test; purified protein derivative solution, intradermal 0 2013 RENE CHEATHAM [id number] Other (OTH) complet ed tuberculi n skin test; purified protein derivativ e solution, intraderm al DoD Encounters Combined list of: 1) Encounters from Department of Veterans Affairs facilities going back up to thelast 18 months. 2) Encounters from the Department of Defense facilities going back up to 280 months. Location Location Details Encounter Type Encounter Number Reason For Visit Attending Provider ADM Date DC Date Status Disposition Source [facility] OUTPATIENT [id number] Notes Entered by: SIMEON SÁNCHEZ 31 Dec 2013 0946 ------- ------- ------- ------- -- Ippd RENE CHEATHAM 12/31 [place]ased [place] Limitations [place] [facility] Delgado([facility]) TELE CONSULT [id number] Notes Entered by: NESTOR GOERGE SA 06 Oct 2014 1406 ------- ------- ------- ------- -- Med refill VILMA MCCRAY 10/06 [place] [facility] [place] [place] [place] [facility] [place] OUTPATIENT [id number] pcm mahendra/ new patient / VILMA Giraldo 11/23 Released w/o Limitations [facility] [place] [place] [facility] [place] [facility] [place] TELE CONSULT [id number] Notes Entered by: STONEY CARDOZA 16 Dec 2014 0939 ------- ------- ------- ------- -- Nurse pedrito Villanueva, DAVID WATKINS 12/16 [place] [facility] [place] [place] [facility] [place] [facility] [place] TELE CONSULT [id number] Notes Entered by: NESTOR GEORGE SA 04 Jan 2015 1535 ------- ------- ------- ------- -- Medicat ion refill SINA DÍAZ 01/04 Referred for Appointment [place] [facility] [place] [place] [facility] [place] [facility] [place] OUTPATIENT [id number] using her inhaler 8 x a day ARMIDA HI 01/05 Released w/o Limitations [place] [facility] [place] [facility] [place] [facility] [place] TELE CONSULT [id number] Notes Entered by: JAMI FLANNERY 04 May 2015 1443 ------- ------- ------- ------- -- HEDIS/ OVERDUE PAP/ PCM MAHENDRA/ EV FLANNERY 05/04 Referred for Appointment [place] [facility] [place] [place] [facility] [place] [facility] [place] OUTPATIENT [id number] SHERINEIS OVERDUE PAP/ PCM VILMA TIJERINA 05/24 Released w/o Limitations [place] [facility] [place] [facility] [place] [facility] [place] TELE CONSULT [id number] Notes Entered by: DESTINY ONEILL 01 Jun 2015 1318 ------- ------- ------- ------- -- PCM Mccray/ Pt would like all recentp ap, lab and bloodwo rk results . VILMA MCCRAY 06/01 [place] [facility] [place] [facility] [place] [facility] [place] TELE CONSULT [id number] Notes Entered by: ANDREEA AUSTIN 13 Jun 2015 1442 ------- ------- ------- ------- -- Request ing U/S Results /PCM MAHENDRA/ ANA AUSTIN 06/13 Other Not Elsewhere Classified [place] [facility] [place] [facility]) OUTPATIENT [id number] PCM/ER f/u abdomin al pain VILMA MCCRAY 07/17 Released w/o Limitations [facility](T P [facility]) [facility]) TELE CONSULT [id number] Notes Entered by: BAY RAMOS 02 Aug 2015 0905 ------- ------- ------- ------- -- PCM Mahendra/ pt request ing lab results /pls call pt at VILMA MCCRAY 08/01 [facility](T P Family [facility]) [facility]) TELE CONSULT [id number] Notes Entered by: OSMIN CONN 24 Aug 2015 1438 ------- ------- ------- ------- -- NETWORK RESULTS -GASTRO ENTEROL OGY-DOS [id number] IN YESSI VILMA MCCRAY 08/23 [facility](T P [facility]) [facility]) TELE CONSULT [id number] Notes Entered by: DESTINY ONEILL 02 Oct 2015 0914 ------- ------- ------- ------- -- Medicat ion VILMA Spears 10/01 [facility](T P [facility]) [facility]) OUTPATIENT [id number] PCM Contreras/he adache for 2 days MIMA SCHERER 01/15 Released w/o Limitations [facility]) [facility]) TELE CONSULT [id number] Notes Entered by: BOLA ARREOLA 04 Mar 2016 1243 ------- ------- ------- ------- -- PCM Contreras/ap pt today BOLA ARREOLA 03/04 Referred for Appointment [facility]) [facility]) OUTPATIENT [id number] PCM Contreras/Po ssible kidney infecti on JEANNE DE LA TORRE 03/04 Released w/o Limitations [facility]) [facility]) TELE CONSULT [id number] Notes Entered by: ALEJANDRO DE LA TORRE 05 Mar 2016 0930 ------- ------- ------- ------- -- Lab results ANA AUSTIN 03/05 Referred for Appointment [facility](T P [facility]) [facility](TP [facility]necolog y Clinic) OUTPATIENT [id number] Dysmeno rrhea, unspeci fied/in structe d to vegetable picker packet STONEY CAPPS 04/25 Released w/o Limitations [facility](T P Gynecol ogy Clinic) [facility](TP Family Medicine [facility]) TELE CONSULT [id number] Notes Entered by: EFLA LARSON 08 May 2016 1238 ------- ------- ------- ------- -- Nurse advise/ medicat ion for a wet mucus cough x4days pcm Contreras BOLA ARREOLA 05/08 Referred for Appointment [facility]) [facility](TP [facility]necolog y Clinic) OUTPATIENT [id number] Notes Entered by: PATRICK HOGUE 08 May 2016 1337 ------- ------- ------- ------- -- KHRIS Guerra 05/08 Released w/o Limitations [facility](T P Gynecol ogy Clinic) [facility]( Family Medicine [facility] Blue) OUTPATIENT [id number] PCM [place]/co ANGIE Yeung 05/09 Released w/o Limitations [facility]) [facility]( Family Medicine [facility]) OUTPATIENT [id number] PCM/est ablish care, cough x4 days- difficu lt to sleep JOSIE HART 05/15 Released w/o Limitations [facility]) [facility](TP Family Medicine [facility]) OUTPATIENT [id number] PCM/ Lump on side of neck JOSIE HART 06/05 Released w/o Limitations [facility]) [facility](TP Gynecolog y Clinic) OUTPATIENT [id number] Pelvic Exam/gy n follow up STONEY CAPPS 06/05 Released w/o Limitations [facility](T P Gynecol ogy Clinic) [facility](TP Family Medicine [facility] Blue) TELE CONSULT [id number] Notes Entered by: ALEJANDRO HART 11 Jun 2016 1814 ------- ------- ------- ------- -- Ultraso JOSIE Brennan 06/12 [facility](T P Family Medicin e PCM Blue) [facility](TP Family Medicine PC[facility] Blue) TELE CONSULT [id number] Notes Entered by: ANDREEA AUSTIN 18 Jun 2016 0809 ------- ------- ------- ------- -- RELAY HEALTH: Note to Office/ PCM JOSIE Cabrera 06/18 [facility](T P Family Medicin e PCM Blue) [facility](TP Gynecolog y Clinic) TELE CONSULT [id number] Notes Entered by: PATRICK HOGUE 10 Jul 2016 1405 ------- ------- ------- ------- -- Stephenio ns about FRANTZ Devries 07/10 Referred for Appointment [facility](T P Gynecol ogy Clinic) [facility](TP Gynecolog y Clinic) OUTPATIENT [id number] f/u LINE SERVICE PERSON (BC change) STONEY CAPPS 07/15 Released w/o Limitations [facility](T P Gynecol ogy Clinic) [facility](TP Family Medicine [facility] Blue) OUTPATIENT [id number] PCM [place]-co ncern about lump on rt side of neck JOSIE HART 08/27 Released w/o Limitations [facility](T P Family Medicin e PCM Blue) [facility](TP Gynecolog y Clinic) TELE CONSULT [id number] Notes Entered by: PATRICK HOGUE 01 Oct 2016 1533 ------- ------- ------- ------- -- Med FRANTZ Gruber 10/01 Other Not Elsewhere Classified [facility](T P Gynecol ogy Clinic) [facility](TP Family Medicine [facility] Blue) TELE CONSULT [id number] Notes Entered by: DESTINY ONEILL 04 Oct 2016 0853 ------- ------- ------- ------- -- Medicat ion Refill [place] 10/04 Other Not Elsewhere Classified [facility](T P Family Medicin e [facility] Blue) Procedures Combined list of: 1) Procedures from Department of Veterans Affairs facilities [facility], not all VA non-surgical procedures are included; 2) All procedures from the Department of Defense facilities. Procedure Procedure Type Code Date Perfomer Comments Lucía e Physician Supervised Injection Intramuscular Physician Supervised Injection Intramuscular 08848 05/08/20 16 KHRIS OCONNELL Depo Provera, 150mg/ml, EXP:[id number], Lot:[id number], Left Deltoid, with no complications [facility] Screening papanicolaou smear; obtaining, preparing and conveyance of cervical or vaginal smear to laboratory 05/25/19 16 VILMA MCCRAY [facility] Skin Test Anergy Tuberculin Intradermal Skin Test Anergy Tuberculin Intradermal 54905 01/01/20 14 KERRY GROVER IPPD; Series #: 1; .1 mL; ID; Left Arm; Mfg: Other; Lot: [id number]. [facility] THERAPEUTIC, PROPHYLACTIC, OR DIAGNOSTIC INJECTION (SPECIFY SUBSTANCE OR DRUG); SUBCUTANEOUS OR INTRAMUSCULAR 05/08/20 16 [facility] ULTRASOUND, ABDOMINAL, REAL TIME WITH IMAGE DOCUMENTATION; LIMITED (EG, SINGLE ORGAN, QUADRANT, FOLLOW-UP) 07/16/19 16 [facility] Social History Combined list of available smoking, tobacco, and other social history from Department of Defense and Veterans Affairs facilities. Social History Type Response Date Comment [facility] sophia This section is an empty social history section. [facility]
--- OUTSIDE RECORDS SUMMARY | 2024-05-10 15:06 | XMS_ITS | Continuity of Care Document ---
Author Organization [facility] Address [address] [place] [address]- Care Team Providers Care Employment Programs Analyst Name Role Phone Frank KNAPP, Marclea West Primary Care Physician Encounter [facility] Date(s): 04/28/24 - 04/28/[address] [address]- Encounter Diagnosis Low back strain(Final) - 04/28/24 Back spasm(Final) - 04/28/24 Discharge Disposition: A-D/C Home Attending Physician: Teagan Haynes DO Admitting Physician: Teagan Haynes DO Referring Physician: Not on Staff, Referring MD Encounter Type: Disch ES Allergies, Adverse Reactions, Alerts Substance Criticality Severity Reaction Reaction Severity Status Contrast Dye throat swelling A ctive Immunizations Given and Recorded Vaccine Date Status Refusal Reason Yellow Fever Vaccine 12/24/11 Given Typhoid Vaccine, Inactivated 12/24/11 Given Hepatitis A Adult Vaccine 1 10/22/11 Given Poliovirus Vaccine, Inactivated 10/22/11 Given tetanus/diphtheria/pertussis, acel(Tdap) 10/17/11 Given 1Admin Note: hep A #1 Medications albuterol (OP) 2 puffs, Inhalation, Every 4 hours, PRN Wheezing/Shortness of Breath, 0 Refills, Maintenance, 2 Start Date: 03/15/19 Status: Ordered Repeat number: 1 Aygestin 5 mg oral tablet 1 tablet = 5 mg, By Mouth, Daily, # 30 tablet, 0 Refills, Maintenance, 03/15/19 2:48:16 PM EDT, Tablet Start Date: 03/15/19 Status: Ordered Quantity: 30.0 Unit: tablet Repeat number: 1 ketorolac 10 mg oral tablet 1 tablet = 10 mg, By Mouth, 4 times a day, PRN as needed for pain, for 4 days, not to exceed 40 mg/day and 5 days duration for all dose forms, # 16 tablet, 0 Refills, Acute 05/03/24 8:58:00 PM EST, 04/29/24 8:58:00 PM EST, Tablet, [facility]/pharmacy #[id number], Patient received 60 mg IM in ED, 170, cm, 04/28/24 17:02:00 EST, Height, 79.5, kg, 04/28/24 17:02:00 EST, Dry Weight Start Date: 04/29/24 Stop Date: 05/03/24 Status: Ordered Quantity: 16.0 Unit: tablet Repeat number: 1 oxyCODONE 5 mg oral tablet 5 mg, Tablet, By Mouth, Once, STAT, 04/28/24 6:20:00 PM EST, Stop date 04/28/24 6:43:28 PM EST Start Date: 04/28/24 Stop Date: 04/28/24 Status: Completed Repeat number: 1 tiZANidine 2 mg oral tablet 2 mg, 1, tablet, By Mouth, 3 times a day, PRN, not to exceed 3 doses/day. May increase dose to 4 mgper dose in 24 hours if needed., # 21 tablet, Refills 0, Tot. Refills 0, Maintenance, Spasm, 04/28/24 8:57:00 PM EST, Route to Pharmacy Electronically, [facility]/pharmacy #[id number], Partial fill upon patient request if the prescription is for a schedule II opioid drug., 170, cm, 04/28/24 17:02:00 EST, Height, 79.5, kg, 04/28/24 17:02:00 EST, Dry Weight Start Date: 04/28/24 Stop Date: 05/05/24 Status: Ordered Quantity: 21.0 Unit: tablet Repeat number: 1 Xopenex Neb, 3 times a day, 0 Refills, Maintenance, 10/22/11 9:39:45 AM EDT Start Date: 10/22/11 Status: Ordered Repeat number: 1 Problem List Condition Confirmation Course Effective Dates Status Health [facility] Informant Travel vaccinations Confirmed Active Results Radiology Reports * Exam Date Time Procedure Performing Provider Status 04/28/24 7:43 PM Lumbar Spine 2 or 3 Views Lorenza Juárez (Verified) Notes: (Lumbar Spine 2 or 3 Views) Reason For Exam: Pain RESULT: Lumbar Spine 2 or 3 Views Lumbar Spine 2 or 3 Views Hx of Present Illness: 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 Pt unable to move. Had telehealth appointment was prescribed flexeril with no affect.; Reason: Pain; Clinical Question(s): Fracture Dislocation COMPARISON: None. Correlation is made with CT abdomen/pelvis dated 01/25/2023. FINDINGS: No bone lesions or fractures. Mild degenerative disc disease at L2-L3 without significant change since 01/25/2023. Remainder of thedisc spaces are well preserved. There is straightening of the spine with loss of the usual lumbar lordosis but otherwise good alignment. No spondylolysis or spondylolisthesis. Surgical clips in right upper quadrant. IMPRESSION: There is straightening of the spine, likely due to spasm or splinting. WSN: [id number] Ordering Physician: Lindsay Gunderson Dictated By: Darryl Vargas MD Dictated Date/Time: 04/28/24 7:46 pm Reviewed By: Darryl Vargas MD Signed By: Darryl Vargas MD Signed Date/Time: 04/28/24 7:46 pm Transcribed By: MAXIMO Transcribed Date/Time: 04/28/24 7:45 pm Vital Signs Most recent to oldest [Reference Range]: 1 2 3 Height 170 cm (04/28/24 5:02 PM) Weight 79.5 kg (04/28/24 5:02 PM) Oxygen Saturation [94-100 %] 97 % (04/28/24 8:00 PM) 95 % (04/28/24 5:06 PM) Pulse Rate [55-90 bpm] 74 bpm (04/28/24 8:00 PM) 68 bpm (04/28/24 5:06 PM) Blood Pressure [90-138/55-84 mm Hg] 120/69mm Hg (04/28/24 8:00 PM) 120/68mm Hg (04/28/24 5:06 PM) Respiratory Rate [16-30 br/min] 18 br/min (04/28/24 8:00 PM) 16 br/min (04/28/24 6:39 PM) 20 br/min (04/28/24 5:06 PM) Temperature [96.8-100.4 DegF] 98.2 DegF (04/28/24 5:06 PM) Mode of Delivery (Oxygen) Room air (04/28/24 8:00 PM) Room air (04/28/24 5:06 PM) Temperature Route Oral (04/28/24 5:06 PM) Dry Weight 79.5 kg (04/28/24 5:02 PM) Weight Obtained Via Patient/family state d (04/28/24 5:02 PM) Dry Weight Obtained Via Patient/family s tated (04/28/24 5:02 PM) Social History Social History Type Response Smoking Status Never (less than 100 in lifetime) entered on: 01/24/23 Sex Sex Representation Female (finding) Note * Lindsay Hanna: PERFORM, SIGN, VERIFY Event Display: Patient Education Handout Authored Date: [id number] * Lindsay Hanna: PERFORM Event Display: Patient Education Leaflets Authored Date: Physical Therapy Referral ?? 250 ?? This page is FOR PRESCRIBERS Only, ? DO NOT GIVE TO THE PATIENT?? Physical Therapy Referral Program for Management of Pain In an effort to reduce narcotic use, some of our ED patients will benefit from a direct referral torehab care.?? [facility] will see INSURED patients and has a system in place to avoid sending follow up paperwork to the ED prescribers.? Note: Non-[facility] physical therapy services will probably NOT be able to handle ED generated PT referrals. ?? Patients should still follow up with their PCP as soon as possible regarding their ongoing care. Inform patients that [facility] will discuss insurance when they call.?? Some insurance plans limit the amount of PT a patient can receive each year. ?? Complete the FIRST PAGE of the patient???s referral sheet. Minto or write in diagnosis. M odify the timing for treatment, if needed. List any major precautions (i.e.?? Non-weight bearing limb), if needed. Sign, date and print your name at the bottom. ? Physical Therapy Referral Form Patient Instructions: You are being referred to physical therapy.?? This form is your referral and MUST be brought to your appointment. You need to call to set up your appointment. ?? This form can be used at any [facility] location.?? A list of locations is attached.?? 1)?? DIAGNOSIS/ICD-10 (cachil dehe one) Cervicalgia: M54.2 ? Strain of muscle, fascia and tendon at neck level: S16.1XXD? Radiculopathy, cervical region: M54.12? Mid back pain: M54.9 ? Low back pain:?? M54.5 Strain of muscle, fascia and tendon of lower back: S39.012D Radiculopathy, lumbosacral region: M54.17 Other:? 2)? [? ]? Evaluate and Treat 2 Times/Week for 4 weeks as needed [? ]?Other: 3)? [? ]? No Precautions [? ]?Precautions: ?? I hereby certify these services as medically necessary for the patient???s plan of care. Physician???s Signature Date Physician Name (printed)? Locations You can call any location below.?? Tell them you were seen in a [facility] and have a referral form.?? Remember to bring your referral form with you to the appointment. HarikaALEJANDRO thomas [id number]? A[place] [address], [address]? [address] ? [place] [address]? A[place]JAN[place] [address]? [address] ? [place] [address]? ALEJANDRO [place] [address] [place] [address] Road?[address] [facility] ? [place] [address]? [facility] [address] ? * Lindsay Hanna: PERFORM Event Display: Patient Education Leaflets Authored Date: Back Sprain or Strain ?? [id number] Back Sprain or Strain Injury to the muscles (strain) or ligaments (sprain) around the spine can??be troubling. Injury mayoccur after a sudden forceful twisting or bending, such as in a car accident, after a simple awkward movement, or after lifting something heavy with poor body positioning. In??any case, muscle spasm is often present and adds to the pain. Thankfully, most people feel better in 1 to 2 weeks. Most of the rest feel better in 1 to 2 months.Most people can stay active. Unless you had a forceful or traumatic physical injury, such as??a caraccident or fall, X-rays may not be done for the first assessment of a back sprain or strain. If pain continues and doesn't respond to medical treatment, your healthcare provider may then do X- rays and other tests. Home care These guidelines will help you care for your injury at home: ??? When in bed, try to find a comfortable position. A firm mattress is best. Try lying flat on your back with pillows under your knees. You can also try lying on your side with your knees bent up toward your chest and a pillow between your knees. ??? Don't sit for long periods. Try not to take long car rides or other trips that have you sitting for a long time. This puts more stress on the low back than standing or walking. ??? During the first 24 to 72 hours after an injury or flare-up, put an ice pack on the painful area for 20 minutes. Then remove it for 20 minutes. Do this for??60 to 90 minutes, or a few times a day. This will reduce swelling and pain. To make an ice pack, put ice cubes in a plastic bag that seals at the top. Always wrap the ice pack in a thin towel or cloth to protect your skin. ??? You can start with ice, then switch to??heat. Heat from a hot shower, hot bath, or heating pad reduces pain and works well for muscle spasms. Put heat on the painful area for 20 minutes, then remove for 20 minutes.??Do this for 60??to 90 minutes, or several times a day. Don't use a heating pad while sleeping. It can burn the skin. ??? You can alternate the??ice and heat. Talk with your healthcare provider to find out the best treatment or therapy for your back pain. ??? Therapeutic massage can help relax the back mus cles without stretching them. ??? Be aware of safe lifting methods. Don't lift anything over 15 pounds until all pain is gone. ?? Medicines Talk with your healthcare provider before using medicines, especially if you have other health problems or are taking other medicines. ??? You may use pfsv-ohe-yeqlqfc medicines, such as acetaminophen, ibuprofen, or naproxen, to control pain, unless another pain medicine was prescribed. Talk with your provider before taking any medicines if you have a chronic condition, such as diabetes, liver orkidney disease, stomach ulcers, or digestive bleeding, or are taking blood-thinner medicines. ??? Be careful if you are given prescription medicines, such as opioids, or medicine for muscle spasm. They can cause drowsiness, and affect your coordination, reflexes, and judgment. Don't drive or operate heavy machinery when taking these types of medicines. Only take pain medicine as prescribed by your provider. ?? Follow-up care Follow up with your healthcare provider as advised. You may need physical therapy or more tests??ifyour symptoms get worse. If you had X-rays, your provider may be checking for any broken bones, breaks, or fractures. Bruises and sprains can sometimes hurt as much as a fracture. These injuries can take time to heal fully. If your symptoms don???t get better or they get worse, talk with your provider. You may need a repeat X-ray or other tests. ?? Call 911 Call 911 if any of these occur: ??? Trouble breathing ??? Confused ??? Very drowsy or trouble waking up ??? Fainting or loss of consciousness ??? Rapid or very slow heart rate ??? Loss of bowel or bladder control ??? Weakness or numbness in 1 or both arms or legs ??? Numbness in the groin or genital area ?? When to get medical advice Call your healthcare provider right away if this occurs: ??? Pain gets worse or spreads to your arms or legs ?? Last Reviewed Date: 2021 ?? [employer]. All rights reserved. This information is not intended as a substitute for professional medical care. Always follow your healthcare professional's instructions. ?? * Neptali PRAJAPATI, Lindsay Bejarano: PERFORM Event Display: Patient Education Leaflets Authored Date: [id number] Muscle Spasm ?? [id number] Muscle Spasm A muscle spasm is a sudden tightening of the muscle you can???t control. This may be caused by strain, overworking the muscle, or injury. It can also be caused by??dehydration, electrolyte imbalance,diabetes, alcohol use, and some medicines. If it goes on long enough, the muscle spasm causes pain.Common areas for muscle spasm are the legs, neck, and back. Home care ??? Heat, massage, walking, hot shower or bath, ice massage, and stretching exercises canall help relax muscle spasm. ??? When the spasm is in your arm or leg, stretch the muscle??passively. To do this, have someone bend or straighten the joint above or below the muscle until you feel the stretch on the sore muscle.??You can stretch the muscle??actively??by moving the affected body part. This will stretch the muscle that is in spasm. For instance, if the spasm is in your calf, bend the ankle so your toes??point??upward toward your knee. This will stretch your calf muscle. ??? You may use??fqcf-pgl-kffkefg pain medicine to control pain, unless another medicine was prescribed. Talkwith your provider before??using these medicines if you have chronic liver or kidney disease, ever had a stomach ulcer or gastrointestinal bleeding, or take a blood thinner. ?? Follow-up care Follow up with your??healthcare provider, or as advised. ? When to get medical advice Call your healthcare provider right away if any of these occur: ??? Fingers or toes become swollen,cold, blue, numb, or tingly ??? You develop weakness in the affected arm or leg ??? Pain increases and isn't controlled by the above measures ?? Last Reviewed Date: 2021 ?? [id number] [employer]. All rights reserved. This information is not intended as a substitute for professional medical care. Always follow your healthcare professional's instructions. ?? Patient Care team information Care Team Personnel Name: Frank KNAPP , Marcela West Position: Reference Physician Member Role: PCP Address: [address] [place] [address] Telecom: Care Team Related Persons Name: ARUN LIM Insurance Providers Guarantor name: [employer] Health Plan Information #: 1 Payer: [employer] Member Number: [id number] Policy Number: NA Group Number: [id number] Health Plan Information #: 2 Payer: ILYA LOMELI Member Number: [id number] Policy Number: [place] Group Number: NA
== END 2024-05-10 15:43 | disposition home or self-care (01) ==
PROVIDERS: PCP Internal Medicine; Visit Provider Nurse Practitioner Family
DX: N20.0 Calculus of kidney (principal); R35.1 Nocturia; Z13.9 Encounter for screening, unspecified
CPT/HCPCS: 99213

== ENCOUNTER → 2024-05-10 15:04 | Outpatient (BNVA) | payer OTHER, SELFPAY | PROVIDERS: PCP Internal Medicine; Visit Provider Nurse Practitioner Family | DX: N20.0 Calculus of kidney (principal); R35.1 Nocturia | CPT/HCPCS: 51798; 81003; 99212 ==

== ENCOUNTER → 2024-06-28 07:54 | Outpatient (BNVA) | payer OTHER, SELFPAY | PROVIDERS: PCP Internal Medicine; Visit Provider Internal Medicine | DX: M54.50 Low back pain, unspecified (principal); F40.240 Claustrophobia | CPT/HCPCS: 96127; 99212 ==

== ENCOUNTER 2024-07-14 17:51 | Outpatient (REF) | payer OTHER, SELFPAY ==
--- NOTE | ~2024-07-14 | MR_ITS ---
EXAMINATION: MR LUMBAR SPINE WITHOUT CONTRAST CLINICAL INFORMATION: Lumbago with sciatic COMPARISON: None available. TECHNIQUE: MRI of the lumbar spine was obtained using routine sequences without contrast. FINDINGS: Last rib-bearing vertebra labeled T12. No bone marrow STIR signal abnormality. Bone marrow inhomogeneity throughout the axial skeleton. Focal 10 mm intrinsic hyperintense T1 bone lesion at L2 likely intraosseous hemangioma. There is l disc desiccation and marginal osteophyte formation at L2-3. Grade 1 retrolisthesis, L2-3. Focal hyperintense T2 signal in the posterior intervertebral disc L2-3 likely focal annular fissure. Disc desiccation at L4-5. Conus medullaris ends at pedicle of L1 with normal signal. T12-L1: No disc herniation. No neuroforamina stenosis. L1-2: Central disc protrusion. No compression upon neural elements. L2-3: Grade 1 retrolisthesis. Broad-based disc bulging. Facet joint and ligamentum flavum hypertrophy. Facet effusion. No compression upon neural elements. L3-4: Central disc protrusion. Facet joint hypertrophy. No compression upon neural elements. L4-5: Central broad-based disc herniation abutting the L5 exiting nerve roots on the lateral recesses. Facet joint and ligamentum flavum hypertrophy. Reduced AP diameter of the thecal sac. No neuroforamina stenosis. L5-S1: Broad-based disc bulging. Facet joint hypertrophy. No central spinal canal stenosis. Bilateral neuroforamina narrowing. There is fatty atrophy of the lumbar muscles at L5-S1. There is slight asymmetry in the right psoas muscle. No prevertebral compartment hematoma mass or fluid collection. MR/MR lumbar spine wo con IMPRESSION: Multilevel lumbar spondylosis resulting in grade 1 retrolisthesis L2-3. Central broad-based disc herniation at L4-5 abutting the L5 exiting nerve roots. Osteopenia versus osteoporosis. Electronically signed by: Gordy Che MD 07/15/2024 08:42 AM EST
--- OUTSIDE RECORDS SUMMARY | 2024-07-14 20:00 | XMS_ITS | Continuity of Care Document ---
Author Organization [facility] Address [address] [place] [address]- Care Team Providers Care Multifocal Lens Inspector Name Role Phone Frank KNAPP, Marcela West Primary Care Physician Encounter [facility] Date(s): 05/20/24 - 07/08/[address] [address]- Encounter Diagnosis Strain of muscle, fascia and tendon of lower back, subsequent encounter(Final) - Discharge Disposition: A-D/C Home Attending Physician: Marcela Marie MD Admitting Physician: Marcela Marie MD Referring Physician: Marcela Marie MD Encounter Type: Disch Recurring OP Allergies, Adverse Reactions, Alerts Substance Criticality Severity [...] Quantity: 30.0 Unit: tablet Repeat number: 1 tiZANidine 2 mg oral tablet 2 mg, 1, tablet, By Mouth, 3 times a day, PRN, not to exceed 3 doses/day. May increase dose to 4 mgper dose in 24 hours if needed., # 21 tablet, Refills 0, Tot. Refills 0, Maintenance, Spasm, 04/28/24 8:57:00 PM EST, Route to Pharmacy Electronically, [facility]/pharmacy #[id number], Partial fill upon patient request if [...] [facility] Informant Travel vaccinations Confirmed Active Social History Social History Type Response Smoking Status Never (less than 100 in lifetime) entered on: 01/24/23 Sex Sex Representation Female (finding) Patient Care team information Care Team Personnel Name: Frank KNAPP , Marcela West Position: Reference Physician Member Role: PCP Address: [address] [place] [address] Telecom: Care Team Related Persons Name: ARUN LIM Insurance Providers Guarantor name: NA Health Plan Information #: 2 Payer: ILYA LOMELI Member Number: [id number] Policy Number: [employer] Group Number: [employer] Health Plan Information #: 1 Payer: NA Member Number: [id number] Policy Number: [employer] Group Number: [id number]
--- OUTSIDE RECORDS SUMMARY | 2024-07-14 20:00 | XMS_ITS | Continuity of Care Document ---
Author Name [facility] Organization [facility] Care Team Providers Care Chief Informatics Officer Name Role Phone [facility] Unavailable Unavailable Problems [...] Known Allergies Drug allergy (disorder) active 04/25/2016 [facility] Immunizations Combined list of available immunizations from the Department of Defense and Veterans Affairs facilities. 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 Location Location Details Encounter Type Encounter Number Reason For Visit Attending Provider ADM Date DC Date Status Disposition Source [facility] Del[facility] OUTPATIENT [id number] Notes Entered by: SIMEON SÁNCHEZ 31 Dec 2013 0946 ------- ------- ------- ------- -- Ippd RENE CHEATHAM 12/31 Released w/o Limitations [facility] TELE CONSULT [id number] Notes Entered by: NESTOR GEORGE SA 06 Oct 2014 1406 ------- ------- ------- ------- -- Med refill VILMA MCCRAY 10/[address] [facility] [place] [place] [place] [facility] [place] OUTPATIENT [id number] bhumika mccray/ new patient / VILMA Giraldo 11/23 Released w/o Limitations [facility] [place] [place] [place] [facility] [place] TELE CONSULT [id number] Notes Entered by: STONEY CARDOZA 16 Dec 2014 0939 ------- ------- ------- ------- -- PCM Nurse pedrito Mccray, DAVID WATKINS 12/16 [facility] [place] [place] [place] [facility] [place] TELE CONSULT [id number] Notes Entered by: NESTOR GEORGE SA 04 Jan 2015 1535 ------- ------- ------- ------- -- Medicat ion refill SINA DÍAZ 01/[address] [place] [place] [place] [facility] [place] OUTPATIENT [id number] using her inhaler 8 x a day ARMIDA HI 01/05 Released w/o Limitations [facility] [place] [place] [facility] [place] TELE CONSULT [id number] Notes Entered by: JAMI FLANNERY 04 May 2015 1443 ------- ------- ------- ------- -- HEDIS/ OVERDUE PAP/ PCM MAHENDRA/ FLANNERY ADVIDAlex Jaramillo 05/[address] [place] [place]) OUTPATIENT [id number] RIC TYSON PAP/ PCM VILMA TIJERINA 05/24 Released w/o Limitations [facility] [place] [place] [facility] [place] TELE CONSULT [id number] Notes Entered by: DESTINY ONEILL 01 Jun 2015 1318 ------- ------- ------- ------- -- PCM Mccray/ Pt would like all recentp ap, lab and bloodwo rk results . VILMA MCCRAY 06/01 [facility] [place] TELE CONSULT [id number] Notes Entered by: ANDREEA AUSTIN 13 Jun 2015 1442 ------- ------- ------- ------- -- Request ing U/S Results /PCM MAHENDRA/ [phone] ANA AUSTIN 06/13 Other Not Elsewhere Classified [facility] [place]) OUTPATIENT [id number] PCM/ER f/u abdomin al pain VILMA MCCRAY 07/17 Released w/o Limitations [facility] TELE CONSULT [id number] Notes Entered by: BAY RAMOS 02 Aug 2015 0905 ------- ------- ------- ------- -- PCM Mahendra/ pt request ing lab results /pls call pt at [phone] VILMA MCCRAY 08/01 [facility] TELE CONSULT [id number] Notes Entered by: OSMIN CONN 24 Aug 2015 1438 ------- ------- ------- ------- -- NETWORK RESULTS -GASTRO ENTEROL OGY-DOS [id number] IN YESSI VILMA MCCRAY 08/23 [facility] TELE CONSULT [id number] Notes Entered by: DESTINY ONEILL 02 Oct 2015 0914 ------- ------- ------- ------- -- Medicat ion Sarayill VILMA MCCRAY 10/01 [facility] OUTPATIENT [id number] [facility]/he adache for 2 days MIMA SCHERER 01/15 Released w/o Limitations [facility] TELE CONSULT [id number] Notes Entered by: BOLA ARREOLA 04 Mar 2016 1243 ------- ------- ------- ------- -- PCM [facility]/ap pt today BOLA ARREOLA 03/04 Referred for Appointment [facility]) OUTPATIENT [id number] PCM [facility]/Po ssible kidney infecti on JEANNE DE LA TORRE 03/04 Released w/o Limitations [facility] TELE CONSULT [id number] Notes Entered by: ALEJANDRO DE LA TORRE 05 Mar 2016 0930 ------- ------- ------- ------- -- Lab results ANA AUSTIN 03/05 Referred for Appointment [facility]) OUTPATIENT [id number] Dysmeno rrhea, unspeci fied/in 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 load and unload packet HIENDEWAYNEBHARATISTONEY 04/25 Released w/o Limitations [facility](T P Gynecol ogy Clinic) [facility]) TELE CONSULT [id number] Notes Entered by: EFLA LARSON 08 May 2016 1238 ------- ------- ------- ------- -- Nurse advise/ medicat ion for a wet mucus cough x4days pcm Contreras BOLA ARREOLA 05/08 Referred for Appointment [facility]) OUTPATIENT [id number] Notes Entered by: PATRICK HOGUE 08 May 2016 1337 ------- ------- ------- ------- -- KHRIS Guerra 05/08 Released w/o Limitations [facility](T P Gynecol [facility]gy Clinic) [facility]( [facility]) OUTPATIENT [id number] PCM [facility]/co ANGIE Yeung 05/09 Released w/o Limitations [facility]( [facility]) OUTPATIENT [id number] PCM/est ablish care, cough x4 days- difficu lt to sleep JOSIE HART 05/15 Released w/o Limitations [facility]( [facility]) OUTPATIENT [id number] PCM/ Lump on side of neck JOSIE HART 06/05 Released w/o Limitations [facility]) OUTPATIENT [id number] Pelvic Exam/gy n follow up STONEY CAPPS 06/05 Released w/o Limitations [facility](T P Gynecol [facility]gy Clinic) [facility]) TELE CONSULT [id number] Notes Entered by: ALEJANDRO HART 11 Jun 2016 1814 ------- ------- ------- ------- -- Ultraso JOSIE Brennan 06/12 [facility](T P Family [facility]) [facility]) TELE CONSULT [id number] Notes Entered by: ANDREEA AUSTIN 18 Jun 2016 0809 ------- ------- ------- ------- -- [facility]: Note to Office/ PCM JOSIE Cabrera 06/18 [facility](T P Family [facility]) [facility](TP [facility]necolog [facility]) TELE CONSULT [id number] Notes Entered by: PATRICK HOGUE 10 Jul 2016 1405 ------- ------- ------- ------- -- Laly chen about FRANTZ Devries 07/10 Referred for Appointment [facility](T P Gynecol [facility]gy Clinic) [facility]) OUTPATIENT [id number] f/u MIX CHEMIST (BC change) STONEY CAPPS 07/15 Released w/o Limitations [facility](T P Gynecol [facility]gy Clinic) [facility]) OUTPATIENT [id number] [facility]-ms ncern about lump on rt side of neck JOSIE HART 08/27 Released w/o Limitations [facility] P [facility]) [facility]) TELE CONSULT [id number] Notes Entered by: PATRICK HOGUE 01 Oct 2016 1533 ------- ------- ------- ------- -- Med JUAN GruberEY A 10/01 Other Not Elsewhere Classified [facility](T P Gynecol ogy Clinic) [facility]) TELE CONSULT [id number] Notes Entered by: DESTINY ONEILL 04 Oct 2016 0853 ------- ------- ------- ------- -- Medicat ion Refill [place]OCK 10/04 Other Not Elsewhere Classified [facility](T P Family [facility] e [facility]) Procedures Combined list of: 1) Procedures from Department of [facility] not all [facility] non-surgical procedures are included; 2) All procedures from the Department of Defense facilities. Procedure Procedure Type Code Date Perfomer Comments [facility] e Physician Supervised Injection Intramuscular Physician Supervised Injection Intramuscular 87807 05/08/20 16 KHRIS OCONNELL Depo Provera, 150mg/ml, EXP:September2018, Lot:[id number], Left Deltoid, with no complications [facility] Screening papanicolaou smear; obtaining, preparing and conveyance of cervical or vaginal smear to laboratory 05/25/[address] [facility] Skin Test Anergy Tuberculin Intradermal Skin Test Anergy Tuberculin Intradermal [id number] 01/01/20 14 KERRY GROVER IPPD; Series #: 1; .1 mL; ID; Left Arm; Mfg: Other; Lot: [id number]. [facility] THERAPEUTIC, PROPHYLACTIC, OR DIAGNOSTIC INJECTION (SPECIFY SUBSTANCE OR DRUG); SUBCUTANEOUS OR INTRAMUSCULAR 05/08/[address] [facility] ULTRASOUND, ABDOMINAL, REAL TIME WITH IMAGE DOCUMENTATION; LIMITED (EG, SINGLE ORGAN, QUADRANT, FOLLOW-UP) 07/16/[address] [facility] Social History Combined list of available smoking, tobacco, and other social history from Department of Defense and Veterans Affairs facilities. Social History Type Response Date Comment [facility] sophia This section is an empty social history section. DoD
--- OUTSIDE RECORDS SUMMARY | 2024-07-14 20:00 | XMS_ITS | Continuity of Care Document ---
Author Organization [facility] Address [address] [place] [phone] Care Team Providers Care Customer Assistance Associate Name Role Phone Frank KNAPP, Marcela West Primary Care Physician Encounter [facility] Date(s): 06/11/24 - 07/11/[address] [id number] Attending Physician: Starr Valdez Admitting Physician: AdmtrStarr Referring Physician: Admtr ArBartolome Encounter Type: Triage Allergies, Adverse Reactions, Alerts Substance Criticality Severity [...] 8:57:00 PM EST, Route to Pharmacy Electronically, [facility]/pharmacy #[id number], Partial fill upon patient request [...] Position: Reference Physician Member Role: PCP Address: [address] [place] [address] Telecom: Care Team Related Persons Name: ARUN LIM Insurance Providers Guarantor name: [employer] Health Plan Information #: 1 Payer: NA Member Number: NA Policy Number: NA Group Number: NA Health Plan Information #: 2 Payer: PRIME Member Number: NA Policy Number: NA Group Number: NA
--- OUTSIDE RECORDS SUMMARY | 2024-07-14 20:00 | XMS_ITS | Continuity of Care Document ---
Author Organization [facility] are Address [address] [place] [address] Phone Care Team Providers Care Manager Intelligence Name Role Phone Geronimo Artis MD Unavailable Unavailable Procedures Procedure Date Upper GI endoscopy, w/biopsy Advance Directives Directive Yes / No Effective Date File Name No Information Encounters Encounter Description Practice Location Reason(s) For Visit Diagnoses Date Provider [facility], [address], [place], [id number], [place] tel:[phone] [facility] No Information [address]. [address], [address], [place], [place], [id number], [place]. tel:[phone] Family History Family Member Type Diagnosis Age At Onset No Information Payers Payer name Insurance type Covered republican ID Authoriza tion(s) [facility] CI [id number] Social History Type Description Quantity Date Captured Comments Sex Female Smoking Status No Information Chief Complaint And Reason For Visit No Information History Of Present Illness Encounter Date Complaint History Of Prese nt Illness No Information Instructions Date Instruction Additional Infor mation No Information Assessments Type Assessment Date No Information
--- OUTSIDE RECORDS SUMMARY | 2024-07-14 20:00 | XMS_ITS | Clinical Summary ---
Author Organization [facility] Address [phone] Formerly [facility] [place] [address] Care Team Providers Care Cotton Program Technician Name Role Phone Marcela Marie MD Primary Care Provider [phone] Allergies Active Allergy Reactions Criticality Noted Date Comments Apple 06/24/2022 And vianca fruit Kam Anaphylaxis High 12/30/2022 Hazelnut 06/24/2022 Iodinated Contrast Media Angioedema 09/04/2020 Medications Medication Sig Dispensed Refills Start Date End Date Status albuterol 90 mcg/actuation inhaler Inhale 2 puffs into the lungs every 6 (six) hours as needed. Active fluticasone propionate (FLOVENT HFA) 110 mcg/actuation inhaler Inhale 1 puff into the lungs 2 (two) times a day as needed. Active norethindrone (AYGESTIN) 5 mg tablet Take 5 mg by mouth daily. Active ascorbic acid, vitamin C, (VITAMIN C) 500 MG tablet Take 500 mg by mouth daily. Active [id number] ORAL Take 1 tablet by mouth daily. Active cetirizine (ZYRTEC) 10 MG tablet Take 10 mg by mouth daily as needed for allergies. Active azelaic acid (FINACEA) 15 % gel 06/20/2022 Active EPINEPHrine 0.3 mg/0.3 mL auto-injector Inject 0.3 mg into the muscle as needed for anaphylaxis. Active metroNIDAZOLE (METROCREAM) 0.75 % cream Apply topically. 12/12/2023 Active clindamycin (CLEOCIN T) 1 % gel Apply topically. 11/28/2023 Active Active Problems Problem Noted Date Diagnosed Date Other insomnia 12/31/2023 Assessment & Plan (01/04/2024 9:45 PM EDT): Principles of sleep hygiene reviewed and strongly encouraged. Listen to relaxation tapes nightly and every time she wakes up. She is scheduled for sleep study on 02/05/2024 as part of workup for her insomnia. Rosacea 12/31/2023 Assessment & Plan (01/04/2024 9:47 PM EDT): Avoid extremes of temperature including hot and icy cold drinks and foods. Optimize stress management strategies. Limit or avoid spicy foods. Daily sun protection. Use MetroCream as prescribed. Nocturia 12/31/2023 Assessment & Plan (01/04/2024 9:48 PM EDT): Limit light large amounts of fluids and consider urology consultation if not better or worse. Night sweats 07/02/2023 Assessment & Plan (07/02/2023 1:20 PM EST): Due to profound night sweats since December 2022 and difficulty warming up I took the liberty of checking her thyroid function. In case it is within normal limits she is advised to follow-up with her pipe bowl paint trimmer for possible early perimenopause. Multiple food allergies 06/24/2022 Assessment & Plan (12/31/2023 9:50 AM EDT): Avoid known allergens . If interested consider desensitization. Carry on her EpiPen and Benadryl to manage possible severe food allergies. Assessment & Plan (07/02/2023 9:42 AM EST): Avoid known allergens . If interested consider desensitization. Carry on her EpiPen and Benadryl to manage possible severe food allergies. Assessment & Plan (12/31/2022 10:35 AM EDT): Avoid known allergens . If interested consider desensitization. Carry on her EpiPen and Benadryl to manage possible severe food allergies. Assessment & Plan (06/25/2022 1:31 PM EST): Avoid known allergens . If interested consider desensitization Sensitivity to sunlight 11/02/2020 Assessment & Plan (11/02/2020 9:42 AM EDT): Recent, unusually severe that may be a sign of developing systemic lupus erythematosus or less likely other sun sensitive skin disease. Avoid sun exposure between 10 AM and 3 PM and use sun protection daily. Lipoma of left upper extremity 11/02/2020 Assessment & Plan (11/12/2020 10:51 PM EDT): I reassured her that fatty tissue deposition within the soft tissue is a benign condition that does not require surgical approach unless there are changes in size, color, shape, bleeding or bruising. Arthralgia of multiple sites 09/06/2020 Assessment & Plan (06/25/2022 1:36 PM EST): Joint protection, energy conservation. Gentle, regular exercise routine. Avoid falls, injuries, overuse. Keep body weight in ideal range for her height. She may benefit from topical cream such as Arnica, Biofreeze, Aspercreme versus medicated patches such as salonpas, icy hot patch 2-3 times daily and if necessary at bedtime x 3 weeks. I printed her examples of knee exercises for home use after warm pack or warm shower. She is encouraged to restart warm pool exercises that she finds very helpful on a regular basis and build up her strength and endurance according to her body's tolerance. Due to diffuse nature of her arthralgias without signs of arthritis I have encouraged her to focus on nonpharmacological measures including mindfulness approach as described in the book written by Dr Hi Reyes [facility] Assessment & Plan (09/06/2020 11:49 PM EDT): Joint protection, energy conservation. Gentle, regular exercise routine. Avoid falls, injuries, overuse. Keep body weight in ideal range for her height. She may benefit from topical cream such as Arnica, Biofreeze, Aspercreme versus medicated patches such as salonpas, icy hot patch 2-3 times daily and if necessary at bedtime x 3 weeks. I printed her examples of knee exercises for home use after warm pack or warm shower. She is encouraged to restart warm pool exercises that she finds very helpful on a regular basis and build up her strength and endurance according to her body's tolerance. Photosensitization due to sunlight 09/06/2020 Assessment & Plan (06/25/2022 1:30 PM EST): Avoid sun exposure between 10 AM and 3 PM and use sun protection daily regularly during spring and summer months. Assessment & Plan (09/06/2020 11:51 PM EDT): Recent, unusually severe that may be a sign of developing systemic lupus erythematosus or less likely other sun sensitive skin disease. Avoid sun exposure between 10 AM and 3 PM and use sun protection daily. Fibromyalgia 09/06/2020 Assessment & Plan (12/31/2023 9:48 AM EDT): We discussed the diagnosis of fibromyalgia, its natural history, and treatment. Specifically, we discussed that treatment requires many interventions and recognition that we are often unable to get patients completely pain free. Management of fibromyalgia requires patient engagement to address any underlying depression, anxiety, or sleep disorder. Further, patients are encouraged to engage in regular physical activity. Some studies have suggested that Bharat Chi is effective. Other physical activity may including water-based aerobics, walking, biking, gentle yoga, Pilates or swimming etc. In terms of pharmacotherapy, there are many options, including tricyclic antidepressants, duloxetine, gabapentin or pregabalin, and cyclobenzaprine as well as other similar medications to those listed. Since she does not feel worse pain after stopping gabapentin I agree with her not to restart it. I provided her with pamphlet on fibromyalgia with useful websites connecting patients with fibromyalgia and books that help with self-management such as: book written by Dr Hi Reyes [facility] or Managing pain before it manages you by Dr. Latrice Neves. She finds helpful reading book by Dr. Elis Pickett MD The body keeps the score Assessment & Plan (07/02/2023 1:19 PM EST): We discussed the diagnosis of fibromyalgia, its natural history, and treatment. Specifically, we discussed that treatment requires many interventions and recognition that we are often unable to get patients completely pain free. Management of fibromyalgia requires patient engagement to address any underlying depression, anxiety, or sleep disorder. Further, patients are encouraged to engage in regular physical activity. Some studies have suggested that Bharat Chi is effective. Other physical activity may including water-based aerobics, walking, biking, gentle yoga, Pilates or swimming etc. In terms of pharmacotherapy, there are many options, including tricyclic antidepressants, duloxetine, gabapentin or pregabalin, and cyclobenzaprine as well as other similar medications to those listed. Since she does not feel worse pain after stopping gabapentin I agree with her not to restart it. I provided her with pamphlet on fibromyalgia with useful websites connecting patients with fibromyalgia and books that help with self-management such as: book written by Dr Hi Reyes [facility] or Managing pain before it manages you by Dr. Latrice Neves. She finds helpful reading book by Dr. Elis Pickett MD The body keeps the score Assessment & Plan (12/31/2022 10:31 AM EDT): We discussed the diagnosis of fibromyalgia, its natural history, and treatment. Specifically, we discussed that treatment requires many interventions and recognition that we are often unable to get patients completely pain free. Management of fibromyalgia requires patient engagement to address any underlying depression, anxiety, or sleep disorder. Further, patients are encouraged to engage in regular physical activity. Some studies have suggested that Bharat Chi is effective. Other physical activity may including water-based aerobics, walking, biking, gentle yoga, Pilates or swimming etc. In terms of pharmacotherapy, there are many options, including tricyclic antidepressants, duloxetine, gabapentin or pregabalin, and cyclobenzaprine as well as other similar medications to those listed. In this case, the patient might try to carefully taper off of gabapentin that she feels makes her foggier rather than clear. I've encouraged the patient to follow up with the primary care physician for further management and the initiation of gentle tapering off of gabapentin that is prescribed by her. I provided her with pamphlet on fibromyalgia with useful websites connecting patients with fibromyalgia and books that help with self-management such as: book written by Dr Hi Caputo catastrophe living or Managing your pain before it manages you by Dr. Latrice Neves. Assessment & Plan (11/12/2020 10:50 PM EDT): We discussed the diagnosis of fibromyalgia, its natural history, and treatment. Specifically, we discussed that treatment requires many interventions and recognition that we are often unable to get patients completely pain free. Management of fibromyalgia requires patient engagement to address any underlying depression, anxiety, or sleep disorder. Further, patients are encouraged to engage in regular physical activity. Some studies have suggested that Bharat Chi is effective. Other physical activity may including water-based aerobics, walking, biking, swimming, gentle yoga, Pilates etc. In terms of pharmacotherapy, there are many options, including tricyclic antidepressants, duloxetine, gabapentin or pregabalin, and cyclobenzaprine as well as other similar medications to those listed. In this case, the patient might try carefully build up the dose of gabapentin from 800 mg nightly to 1200 mg nightly in addition to focusing on the nonpharmacologic measures as described above. She would benefit greatly from reading book written by Dr Hi Caputo catast[facility] living describing mindfulness approach in dealing with fibromyalgia related issues. I provided her with pamphlet on fibromyalgia with useful websites for additional information. Assessment & Plan (09/06/2020 11:46 PM EDT): We discussed the diagnosis of fibromyalgia, its natural history, and treatment. Specifically, we discussed that treatment requires many interventions and recognition that we are often unable to get patients completely pain free. Management of fibromyalgia requires patient engagement to address any underlying depression, anxiety, or sleep disorder. Further, patients are encouraged to engage in regular physical activity. Some studies have suggested that Bharat Chi is effective. Other physical activity may including water-based aerobics, walking, biking, swimming, gentle yoga, Pilates etc. In terms of pharmacotherapy, there are many options, including tricyclic antidepressants, duloxetine, gabapentin or pregabalin, and cyclobenzaprine as well as other similar medications to those listed. In this case, the patient might try carefully build up the dose of gabapentin from 800 mg nightly to 1200 mg nightly in addition to focusing on the nonpharmacologic measures as described above. She would benefit greatly from reading book written by Dr Hi Reyes [facility] describing mindfulness approach in dealing with fibromyalgia related issues. I provided her with pamphlet on fibromyalgia with useful websites for additional information. I've encouraged the patient to follow up with the primary care physician for further management and the initiation of medications. At this time, they require no further rheumatology follow up but I am happy to see the patient again if anything changes clinically. Vitamin D insufficiency 09/06/2020 Assessment & Plan (06/25/2022 1:29 PM EST): Last checkup from August 2020 confirmed excellent serum level at 46 (30-60). Assessment & Plan (09/06/2020 11:42 PM EDT): She is interested in finding her serum concentration so I asked her to hold vitamin D for a week and have it checked to make sure that she does not need adjustment in supplementation. I have reviewed with her that optimal serum concentration should be between 40- 45 ng/ml. Irritable bowel syndrome wit h both constipation and diarrhea 09/06/2020 Assessment & Plan (06/24/2022 10:21 AM EST): Well-balanced nutritionally diet. Proper hydration. Eat 4-5 smaller meals rather than 2-3 larger meals daily on regular schedule. Assessment & Plan (09/06/2020 11:48 PM EDT): Well-balanced nutritionally diet. Proper hydration. Eat 4-5 smaller meals rather than 2-3 larger meals daily on regular schedule. Gastroesophageal reflux disease without esophagi tis 09/06/2020 Assessment & Plan (06/24/2022 10:21 AM EST): Avoid late, large, spicy meals. Keep headboard elevated at 45?? angle for nighttime. Assessment & Plan (11/12/2020 10:52 PM EDT): Avoid late, large, spicy meals. Keep headboard elevated at 45?? angle for nighttime. Assessment & Plan (09/06/2020 11:48 PM EDT): Avoid late, large, spicy meals. Keep headboard elevated at 45?? angle for nighttime. Keratoconjunctivitis sicca not due to Sjogren's syndrome 09/06/2020 Assessment & Plan (12/31/2023 9:49 AM EDT): SSA and SSB antibodies returned negative in 2020 normal inflammatory indices. Keep well-hydrated. Avoid spicy and acidic foods prolonged direct exposure to wind, drafts and air from fans and heaters. Diligent eyes & mouth hygiene. Regular ocular and dental checkups. Assessment & Plan (07/02/2023 9:42 AM EST): SSA and SSB antibodies returned negative in 2020 normal inflammatory indices. Keep well-hydrated. Avoid spicy and acidic foods prolonged direct exposure to wind, drafts and air from fans and heaters. Diligent eyes & mouth hygiene. Regular ocular and dental checkups. Assessment & Plan (12/31/2022 10:34 AM EDT): SSA and SSB antibodies returned negative in 2020 normal inflammatory indices. Keep well-hydrated. Avoid spicy and acidic foods prolonged direct exposure to wind, drafts and air from fans and heaters. Diligent eyes & mouth hygiene. Regular ocular and dental checkups. Assessment & Plan (06/24/2022 10:21 AM EST): Keep well-hydrated. Avoid spicy and acidic foods prolonged direct exposure to wind, drafts and air from fans and heaters. Diligent eyes & mouth hygiene. Regular ocular and dental checkups. Assessment & Plan (09/06/2020 11:47 PM EDT): Keep well-hydrated. Avoid spicy and acidic foods prolonged direct exposure to wind, drafts and air from fans and heaters. Diligent eyes & mouth hygiene. Regular ocular and dental checkups. Hair loss 09/06/2020 Assessment & Plan (09/06/2020 11:52 PM EDT): Optimize stress management strategies since poor stress management strategies may contribute to it. Weight gain 09/06/2020 Assessment & Plan (09/06/2020 11:43 PM EDT): Portion control. Limit concentrated sugars, saturated fats and calories in the diet. Keep well-hydrated. If unable to achieve expected goal consider formal dietary/nutritional support. Resolved Problems Problem Noted Date Diagnosed Date Resolved Date Skin rash 11/02/2020 11/12/2020 NSAID long-term use 09/06/2020 06/24/19 Assessment & Plan (09/06/2020 11:51 PM EDT): Take the lowest dose, with least frequency, for shortest time. Remember to take it always with food. Favor topical over oral preparations. Family History Medical History Relation Comments Diabetes Father Hypertension Father Diabetes mellitus Maternal Grandmother Hypertension Maternal Grandmother Osteoarthritis Mother Stomach cancer Paternal Aunt Throat cancer Paternal Grandfather Relation Status Comments Father Maternal Grandmother Mother Paternal Aunt Paternal Grandfather Social History Tobacco Use Types Packs/Day Years Used Date Smoking Tobacco: Never Smokeless Tobacco: Never Education Answer Date Recorded Are you interested in more education? Not on winifred e 09/14/2022 Are you concerned about learning? Not on file 09/14/2022 No 09/14/2022 No 09/14/2022 Digital Access Answer Date Recorded No 10/13/2022 No 10/13/2022 Reliable internet access at home? Not on file 10/13/2022 Device with a working camera? Not on file Sex and Gender Information Value Date Recorded Sex Assigned at Not on file Gender Identity Not on file Sexual Orientation Not on file Last Filed Vital Signs Vital Sign Reading Time Taken Comments Blood Pressure 112/70 12/31/2023 9:28 AM EDT Pulse 84 12/31/2023 9:28 AM EDT Temperature - - Respiratory Rate - - Oxygen Saturation 99% 12/31/2023 9:28 AM EDT Inhaled Oxygen Concentration - - Weight 80.7 kg (178 lb) 12/31/2023 9:28 AM EDT Height 170.2 cm (5' 7 ) 12/31/2023 9:28 AM EDT Body Mass Index 27.88 12/31/2023 9:28 AM EDT Plan of Treatment Health Maintenance Due Date Last Done Comments Adult Td,Tdap Booster 1980 DEPRESSION SCREENING 1992 HEPATITIS B SCREENING 1998 HEPATITIS C SCREENING 1998 HIV ONE-TIME SCREENING (18-6 5 YEARS) 1998 HEPATITIS B VACCINES (1 of 3 - 19+ 3-dose series) 10/13/1999 PAP SMEAR 2001 MAMMOGRAM 2020 SCREENING FOR DIABETES 09/14/2023 09/13/2020 INFLUENZA VACCINE (#1) 2023 COVID-19 VACCINE ( - 2023-2 5 season) 2024 SMOKING STATUS SCREENING (On ce After 26 Yrs) Completed 12/31/2023 HEPATITIS A VACCINES Aged Out No long er eligible based on patient's age to complete this topic HIB VACCINES Aged Out No longer eligi ble based on patient's age to complete this topic MENINGOCOCCAL VACCINES (ACWY) Aged Out No longer eligible based on patient's age to complete this topic PNEUMOCOCCAL VACCINES (0-49 years) Aged Out No longer eligible based on patient's age to complete this topic Medical Devices Not on file Care Teams Cotton Program Technician Relationship Specialty Start Date End Date Marcela Marie MD [facility] [address] [place] [address] PCP - General Internal Medicine 08/16/20 Additional Source Comments The information contained in this document represents components of the legal health record. It is not the complete legal health record.[facility]
--- OUTSIDE RECORDS SUMMARY | 2024-07-14 20:00 | XMS_ITS | Encounter Summary ---
Author Organization [facility] Address [phone] [place] [address] Care Team Providers Care Musical Therapist Name Role Phone Marcela Marie MD Primary Care Provider [phone]- [phone] Encounter Details Date Type Department Care Team (Late st Contact Info) Description 09/04/2022 Transcribe Orders [facility] Specimen Processing [address] [place] [address] Paulino Owusu, DO [address] [facility], [address] [place] [address] Social History Tobacco Use Types Packs/Day Years Used Date Smoking Tobacco: Never Smokeless Tobacco: Never Sex and Gender Information Value Date Recorded Sex Assigned at Not on file Gender Identity Not on file Sexual Orientation Not on file documented as of this encounter Plan of Treatment Not on file documented as of this encounter Visit Diagnoses Not on filedocumented in this encounter Care Teams Musical Therapist Relationship Specialty Start Date End Date Marcela Marie MD [address] [facility] [place] [place] [address] PCP - General Internal Medicine 08/16/20 documented as of this encounter Additional Source Comments The information contained in this document represents components of the legal health record. It is not the complete legal health record.[facility]
== END 2024-07-14 17:52 | disposition home or self-care (01) ==
LOC: HO.MRI 17:51
PROVIDERS: PCP Internal Medicine; Visit Provider Internal Medicine
DX: M54.50 Low back pain, unspecified (principal)
CPT/HCPCS: 72148

== ENCOUNTER → 2024-07-14 17:57 | Outpatient (BNV) | payer OTHER, SELFPAY | PROVIDERS: PCP Internal Medicine; Visit Provider Radiology Diagnostic Radiology | DX: M54.40 Lumbago with sciatica, unspecified side (principal) | CPT/HCPCS: 72148 ==

== ENCOUNTER 2024-08-24 12:36 | Outpatient (REF) | payer OTHER, SELFPAY ==
--- OUTSIDE RECORDS SUMMARY | 2024-08-24 17:36 | XMS_ITS | Clinical Summary ---
Author Organization [facility] Address [address] [place] [address] Phone Care Team Providers Care Body Coverer Name Role Phone Marcela Marie MD Primary Care Provider [phone]- [phone] Allergies Active Allergy Reactions Criticality Noted Date [...] Take 500 mg by mouth daily. Active [id number] ORAL Take 1 tablet by mouth daily. [...] she is advised to follow-up with her account executive healthcare for possible early perimenopause. Multiple food allergies [...] Medical Devices Not on file Care Teams Body Coverer Relationship Specialty Start Date End Date Marcela Marie MD [address] [place] [address] [place] [address] PCP - General Internal Medicine 08/16/20 Additional Source Comments The information contained in this document represents components of the legal health record. It is not the complete legal health record.[facility]
--- OUTSIDE RECORDS SUMMARY | 2024-08-24 17:36 | XMS_ITS | Continuity of Care Document ---
Author Organization [facility] are Address [address] [place] [address] Phone Care Team Providers Care Frame And Scrap Crusher Name Role Phone Geronimo Artis MD Unavailable Unavailable Procedures Procedure Date Upper GI endoscopy, w/biopsy Advance Directives Directive Yes / No Effective Date File Name No Information Encounters Encounter Description Practice Location Reason(s) For Visit Diagnoses Date Provider [facility], [address], [place], [id number], [place] tel:[phone] [facility] No Information [address], [address], [place], [place], [id number], [place]. tel:[phone] Family History Family Member Type Diagnosis Age At Onset No Information Payers Payer name Insurance type Covered libertarian ID Authoriza tion(s) [facility] CI [id number] Social History Type Description Quantity Date Captured Comments Sex Female Smoking Status No Information Chief Complaint And Reason For Visit No Information History Of Present Illness Encounter Date Complaint History Of Prese nt Illness No Information Instructions Date Instruction Additional Infor mation No Information Assessments Type Assessment Date No Information
--- OUTSIDE RECORDS SUMMARY | 2024-08-24 17:36 | XMS_ITS | Encounter Summary ---
Author Organization [facility] Address [address] [place] [address] Phone Care Team Providers Care Spanish Medical Interpreter Name Role Phone Marcela Marie MD Primary Care Provider [phone]- [phone] Encounter Details Date Type Department Care Team (Late st Contact Info) Description 09/04/2022 Transcribe Orders [facility] Specimen Processing [address] [place] [address] Paulino Owusu, DO [address] [facility], [address] [place] [address] Social History Tobacco Use Types Packs/Day Years [...] on filedocumented in this encounter Care Teams Spanish Medical Interpreter Relationship Specialty Start Date End Date Marcela Marie MD [address] [place] [address] PCP - General Internal Medicine 08/16/20 documented as of this encounter Additional Source Comments The information contained in this document represents components of the legal health record. It is not the complete legal health record.[facility]
[2024-08-30 14:44] LABS: HPV Genotype 16 Negative (Negative); HPV Genotype 18 Negative (Negative); HPV High Risk Negative (Negative)
== END 2024-08-24 12:37 | disposition home or self-care (01) ==
LOC: HO.LNP 12:36
PROVIDERS: PCP Internal Medicine; Visit Provider Obstetrics & Gynecology
DX: Z01.419 Encounter for gynecological examination (general) (routine) without abnormal findings (principal)
CPT/HCPCS: 87626; 88175; 99459

== ENCOUNTER 2024-08-24 12:36 | Outpatient (AMB) | payer OTHER, SELFPAY ==
[2024-08-24 12:57] VITALS: BP 118/62; BMI 28.5
--- NOTE | 2024-08-24 12:57 | A.OFFVIS_ITS ---
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 Intake Note: needs refill on her Norrethindrone Clinical Informatics Physician Required: No Allergies Iodinated Contrast Media [Iodinated Contrast Media - IV Dye] Allergy (Severe, Verified 08/24/24 13:07) ANGIOEDEMA NSAIDS (Non-Steroidal Anti-Inflamma Allergy (Mild, Verified 08/24/24 13:07) Unknown nogueira Adverse Reaction (Verified 08/24/24 13:07) Anaphylaxis vianca fruit Adverse Reaction (Uncoded 08/24/24 13:07) Anaphylaxis Medication List - Last Reconciled 08/24/24 by Meche Conteh LPN albuterol sulfate 90 mcg/actuation 2 inhalations inhalation Q6H PRN diazepam 2 mg PO ONCE PRN fluticasone propionate 110 mcg/actuation 1 puff PO BID norethindrone acetate 5 mg PO DAILY HPI Comments Details: Presenting for annual exam. No complaints. Last Pap/HPV was negative in 2019 Last Mammogram BI-RADS 04/11 [facility] Medical History Lumbar disc herniation Chronic low back pain with sciatica Rosacea History of kidney stones Acne Polyarthralgia Osteoarthritis of right shoulder Arthritis, multiple joint involvement History of seizures History of carpal tunnel syndrome Horners syndrome History of benign schwannoma Endometriosis Asthma Fibromyalgia Surgical History History of neck surgery History of adenoidectomy S/P correction of deviated nasal septum H/O elbow surgery History of carpal tunnel surgery History of tonsillectomy Family History Father Diabetes mellitus DVT (deep venous thrombosis) HTN (hypertension) Mother Osteoarthritis Maternal Grandmother Diabetes mellitus HTN (hypertension) Paternal Grandmother Throat cancer Brother No problems noted. Son No problems noted. 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 Sexual orientation: Straight/Heterosexual Gender identity: Female Cognitive needs: No Hearing needs: No Vision needs: No Female Reproductive History Menstrual Age of Menarche: 13 control method: pills Total pregnancies: 1 Full term: 1 Number of Living Children: 1 History of abnormal pap smear: No History of STI: No Date of Mammogram: 04/02/23 History of abnormal mammogram: No Review of Systems Const All systems reviewed & are unremarkable except as noted in HPI and below Card Reports as per HPI Resp Reports as per HPI GI Reports as per HPI and Reports no additional complaints Reports as per HPI Physical Exam Vital Signs: Last Vital Signs BP 118/62 08/24/24 12:57 BMI result Body Mass Index 28.5 Const General: cooperative, healthy appearing and comfortable Chest Chest palpation & inspection: normal inspection of the chest and normal palpation of entire chest wall Breast/axilla inspection: normal inspection of the breasts and normal inspection of the axillae Breast/axilla palpation: normal palpation of the breasts, normal palpation of the axillae and no axillary lymphadenopathy Resp Effort & Inspection: normal respiratory effort Auscultation: clear to auscultation bilaterally Percussion: percussion normal Cardio Palpation: normal PMI Rate: regular rate Rhythm: regular rhythm Heart sounds: no murmurs and no rubs Peripheral pulses: Peripheral pulses 2+ throughout GI Inspection: Yes normal to inspection Palpation (GI): Soft to palpation, nontender, no guarding, not rigid and No hepatosplenomegaly present Percussion: Yes normal to percussion Auscultation: normal bowel sounds Rectal Exam - Female: deferred General: Yes bladder normal to palpation External Female Exam: No lesion Speculum Exam - Vagina: normal appearance of the vagina, normal palpation, normal vaginal discharge and not erythematous Speculum Exam - Cervix: normal appearance of the cervix and normal palpation Bimanual exam- vagina & uterus: normal bimanual exam, normal palpation, uterine size normal, bladder normal to palpation, consistency normal and normal palpation Bimanual Exam- Adnexa, other: normal adnexae, adnexal mass (Right adnexal fullness) and no tenderness Assessment & Plan Assessment & Plan (1) Well woman exam: Code(s): Z01.419 - Encounter for gynecological examination (general) (routine) without abnormal findings Category: Medical Plan: Cotesting done. Instructions given the patient to schedule next screening Mammogram in 04/12. Counseled the patient about the recommended dietary allowance of 1000 mg of Calcium & 600 IU of vitamin D. The patient was instructed to perform monthly self-breast exams and to schedule an annual exam in a year; All questions answered and the patient verbalized understanding. Instructed the patient to schedule annual exam in a year (2) Adnexal fullness: Code(s): N94.9 - Unspecified condition associated with female genital organs and menstrual cycle Category: Medical Plan: Discussed with the patient the finding on pelvic exam, ultrasound of the pelvis ordered. Instructions given the patient to schedule an ultrasound follow-up appointment within 2 weeks. Orders: Orders US pelvic and transvaginal Today N94.9 - Unspecified condition associated with female genital organs and menstrual cycle Coding Level of Care Code Est Pt Prev Care 40-64y(47864) Diagnoses Well woman exam Z01.419 Adnexal fullness N94.9
--- OUTSIDE RECORDS SUMMARY | 2024-08-24 15:08 | XMS_ITS | Encounter Summary ---
Author Organization [facility] Address [address] [place] [address] Phone Care Team Providers Care Disease Management Nurse Name Role Phone Marcela Marie MD Primary Care Provider [phone] Encounter Details Date Type Department Care Team (Late st Contact Info) Description 09/04/2022 Transcribe Orders [facility] Specimen Processing [address] [place] [address] Paulino Owusu, DO [address] [facility], [address] [place] [address] Social History Tobacco Use Types Packs/Day Years [...] on filedocumented in this encounter Care Teams Disease Management Nurse Relationship Specialty Start Date End Date Marcela Marie MD [address] [facility] [address] [place] [address] PCP - General Internal Medicine 08/16/20 documented as of this encounter Additional Source Comments The information contained in this document represents components of the legal health record. It is not the complete legal health record.[facility]
--- OUTSIDE RECORDS SUMMARY | 2024-08-24 15:08 | XMS_ITS | Continuity of Care Document ---
Author Organization [facility] are Address [address] [place] [address] Phone Care Team Providers Care Assembly Line Upholsterer Name Role Phone Geronimo Artis MD Unavailable Unavailable Procedures Procedure Date Upper GI endoscopy, w/biopsy Advance Directives Directive Yes / No Effective Date File Name No Information Encounters Encounter Description Practice Location Reason(s) For Visit Diagnoses Date Provider [facility], [address], [place], [id number], [place] tel:[phone] [facility] No Information [address]. [address], [address], [place], [place], [id number], [place]. tel:[phone] Family History Family Member Type Diagnosis Age At Onset No Information Payers Payer name Insurance type Covered democrat ID Authoriza tion(s) [facility] CI [id number] Social History Type Description Quantity Date Captured Comments Sex Female Smoking Status No Information Chief Complaint And Reason For Visit No Information History Of Present Illness Encounter Date Complaint History Of Prese nt Illness No Information Instructions Date Instruction Additional Infor mation No Information Assessments Type Assessment Date No Information
--- OUTSIDE RECORDS SUMMARY | 2024-08-24 15:09 | XMS_ITS | Clinical Summary ---
Author Organization [facility] Address [address] [place] [address] Phone Care Team Providers Care Traffic Expert Name Role Phone Marcela Marie MD Primary Care Provider [phone] Allergies Active Allergy Reactions Criticality Noted Date [...] Take 500 mg by mouth daily. Active [id number]-[id number]-WUOU ORAL Take 1 tablet by mouth daily. [...] she is advised to follow-up with her pediatric neurologist for possible early perimenopause. Multiple food allergies [...] such as: book written by Dr Hi berry living or Managing your pain before it [...] from reading book written by Dr Hi berry living describing mindfulness approach in dealing with [...] 11/02/2020 11/12/2020 NSAID long-term use 09/06/2020 06/24/19 23 Assessment & Plan (09/06/2020 11:51 PM EDT): [...] Td,Tdap Booster 1980 DEPRESSION SCREENING 1992 HEPATITIS C SCREENING 1998 HIV ONE-TIME SCREENING (18-6 5 YEARS) 1998 PAP SMEAR 2001 MAMMOGRAM 2020 SCREENING FOR [...] Medical Devices Not on file Care Teams Traffic Expert Relationship Specialty Start Date End Date Marcela Marie MD [address] [place] [address] [place] [address] PCP - General Internal Medicine 08/16/20 Additional Source Comments The information contained in this document represents components of the legal health record. It is not the complete legal health record.[facility]
== END 2024-08-24 13:32 | disposition home or self-care (01) ==
LOC: HO.HWS 12:36
PROVIDERS: PCP Internal Medicine; Visit Provider Obstetrics & Gynecology
DX: Z01.419 Encounter for gynecological examination (general) (routine) without abnormal findings (principal); N94.9 Unspecified condition associated with female genital organs and menstrual cycle
CPT/HCPCS: 99396; 99459

== ENCOUNTER 2024-09-20 14:50 | Outpatient (REF) | payer OTHER, SELFPAY ==
--- NOTE | ~2024-09-20 | US_ITS ---
EXAMINATION: US PELVIS TRANSABDOMINAL AND TRANSVAGINAL HISTORY: N94.9 - Unspecified condition associated with female genital organs and ... COMPARISON: Comparison is made with the prior examination dated 08/27/2023. TECHNIQUE: Transabdominal and endovaginal real-time 2D dyer-scale ultrasound was performed. FINDINGS: Uterus: The uterus is normal in size, measuring 8.0 x 3.5 x 4.4 cm. Myometrium has a normal echotexture. There is a fundal fibroid measuring 1.9 x 1.5 x 1.2 cm (previously 1.3 x 1.2 x 1.5 cm). Endometrium: The endometrial stripe measures 4 mm in thickness. Right ovary: The right ovary measures 1.7 x 1.5 x 1.4 cm. The right ovary is normal in size and echotexture. Left ovary: The left ovary measures 2.0 x 2.0 x 4.9 cm. There is a 1.9 x 1.8 x 1.7 cm cyst with low-level internal echoes which likely represents a hemorrhagic cyst. Pelvic fluid: none. US/US pelvic and transvaginal IMPRESSION: 1. 1.9 x 1.5 x 1.2 cm fundal fibroid. 2. 1.9 x 1.8 x 1.7 cm probable left ovarian hemorrhagic cyst. Follow-up is recommended in 6 weeks, at a given time in the patient's potential cycle, to document resolution. Electronically signed by: Todd Carmen MD 09/20/2024 03:26 PM EDT
--- OUTSIDE RECORDS SUMMARY | 2024-09-20 16:23 | XMS_ITS | Encounter Summary ---
Author Organization [facility] Address [address] [place] [address] Phone Care Team Providers Care Car Repairer Name Role Phone Marcela Marie MD Primary Care Provider Encounter Details Date Type Department Care Team (Late st Contact Info) Description 09/04/2022 Transcribe Orders [facility] Specimen Processing [address] [place] [address] Paulino Owusu, DO [address] [facility], [address] [place] [address] Social History Tobacco Use Types Packs/Day Years [...] on filedocumented in this encounter Care Teams Car Repairer Relationship Specialty Start Date End Date Marcela Marie MD [facility] [place] [address] PCP - General Internal Medicine 08/16/20 documented as of this encounter Additional Source Comments The information contained in this document represents components of the legal health record. It is not the complete legal health record.[facility]
--- OUTSIDE RECORDS SUMMARY | 2024-09-20 16:23 | XMS_ITS | Continuity of Care Document ---
Author Name [facility] Organization [facility] Care Team Providers Care Emergency Generator Mechanic Name Role Phone [facility] Unavailable Unavailable Problems [...] Known Allergies Drug allergy (disorder) active 04/25/2016 [facility] Immunizations Combined list of available immunizations from the Department of Defense and Veterans Affairs facilities. Immunization Series Date Given Administered By Site Reaction Lot Number CVX Code Drug Unit Controller Status Comments Source tuberculin skin test; purified protein derivative solution, intradermal 0 2013 RENE CHEATHAM [id number] Other (OTH) complet ed tuberculi n [...] Source [facility] Del[facility] OUTPATIENT [id number] Notes Entered by: SIMEON SÁNCHEZ 31 Dec 2013 0946 ------- ------- ------- ------- -- Ippd RENE CHEATHAM 12/31 Released w/o Limitations [facility] Del[facility] TELE CONSULT [id number] Notes Entered by: NESTOR GEORGE SA 06 Oct 2014 1406 ------- ------- ------- ------- -- Med refill VILMA MCCRAY 10/06 [place] [facility] [place] [facility] [place] OUTPATIENT [id number] bhumika mccray/ new patient / VILMA Giraldo 11/23 Released w/o Limitations [place] [facility] [place] [facility] [place] [facility] [place] TELE CONSULT [id number] Notes Entered by: STONEY CARDOZA 16 Dec 2014 0939 ------- ------- ------- ------- -- PCM Nurse pedrito Mccray, DAVID WATKINS 12/16 [place] [facility] [place] [facility] [place] [facility] [place] TELE CONSULT [id number] Notes Entered by: NESTOR GEORGE SA 04 Jan 2015 1535 ------- ------- ------- ------- -- Medicat ion refill SINA DÍAZ 01/04 [place]erred for Appointment [place] [facility] [place] [facility] [place] OUTPATIENT [id number] using her inhaler 8 x a day ARMIDA HI 01/05 Released w/o Limitations [place] [facility] [place] TELE CONSULT [id number] Notes Entered by: JAMI FLANNERY 04 May 2015 1443 ------- ------- ------- ------- -- HEDIS/ OVERDUE PAP/ PCM MAHENDRA/ FLANNERY DAVIDAlex Jaramillo 05/04 [place] for Appointment [place] [facility] [place] OUTPATIENT [id number] RIC TYSON PAP/ PCM VILMA TIJERINA 05/24 Released w/o Limitations [place] [facility] [place] [facility] [place] TELE CONSULT [id number] Notes Entered by: DESTINY ONEILL 01 Jun 2015 1318 ------- ------- ------- ------- -- PCM Mccray/ Pt would like all recentp ap, lab and bloodwo rk results . VILMA MCCRAY 06/01 [place] [facility] TELE CONSULT [id number] Notes Entered by: ANDREEA AUSTIN 13 Jun 2015 1442 ------- ------- ------- ------- -- Request ing U/S Results /PCM MAHENDRA/ ANA [place]USTIN 06/13 Other Not Elsewhere Classified [place] [facility] [place] [facility]) OUTPATIENT [id number] PCM/ER f/u abdomin al pain VILMA MCCRAY 07/17 Released w/o Limitations [facility]) [facility] TELE CONSULT [id number] Notes Entered by: BAY RAMOS 02 Aug 2015 0905 ------- ------- ------- ------- -- PCM Mahendra/ pt request ing lab results /pls call pt at [phone] VILMA MCCRAY 08/01 [facility] TELE CONSULT [id number] Notes Entered by: OSMIN CONN 24 Aug 2015 1438 ------- ------- ------- ------- -- NETWORK RESULTS -GASTRO ENTEROL OGY-DOS [id number] 16 IN YESSI VILMA MCCRAY 08/23 [facility] TELE CONSULT [id number] Notes Entered by: DESTINY ONEILL 02 Oct 2015 0914 ------- ------- ------- ------- -- Medicat ion Sarayill VILMA MCCRAY 10/01 [facility] OUTPATIENT [id number] PCM [place]/he adache for 2 days MIMA SCHERER 01/15 Released w/o Limitations [facility] TELE CONSULT [id number] Notes Entered by: BOLA ARREOLA 04 Mar 2016 1243 ------- ------- ------- ------- -- PCM Contreras/ap pt today BOLA ARREOLA 03/04 Referred for Appointment [facility]) OUTPATIENT [id number] PCM [place]/Po ssible kidney infecti on JEANNE DE LA TORRE 03/04 Released w/o Limitations [facility] TELE CONSULT [id number] Notes Entered by: ALEJANDRO DE LA TORRE 05 Mar 2016 0930 ------- ------- ------- ------- -- Lab results ANA AUSTIN 03/05 Referred for Appointment [facility]) OUTPATIENT [id number] Dysmeno rrhea, unspeci fied/in structe d to pepper picker packet HIENDEWAYNEBHARATISTONEY 04/25 Released w/o Limitations [facility]) [facility]) TELE CONSULT [id number] Notes Entered by: FELA LARSON 08 May 2016 1238 ------- ------- ------- ------- -- Nurse advise/ medicat ion for a wet mucus cough x4days pcm Contreras BOLA ARREOLA 05/08 Referred for Appointment [facility]) OUTPATIENT [id number] Notes Entered by: PATRICK HOGUE 08 May 2016 1337 ------- ------- ------- ------- -- KHRIS Guerra 05/08 Released w/o Limitations [facility](T P Gynecol [facility]gy [facility]) [facility]( [facility] Blue) OUTPATIENT [id number] PCM [place]re[place]/co ANGIE Yeung 05/09 Released w/o Limitations [facility]( [facility] Blue) OUTPATIENT [id number] PCM/est ablish care, cough x4 days- difficu lt to sleep JOSIE HART 05/15 Released w/o Limitations [facility]( [facility] Blue) OUTPATIENT [id number] PCM/ Lump on side of neck JOSIE HART 06/05 Released w/o Limitations [facility]) OUTPATIENT [id number] Pelvic Exam/gy n follow up STONEY CAPPS 06/05 Released w/o Limitations [facility]) [facility] Blue) TELE CONSULT [id number] Notes Entered by: ALEJANDRO HART 11 Jun 2016 1814 ------- ------- ------- ------- -- Ultraso JOSIE Brennan 06/12 [facility](T P Family Medicin e PCM Blue) [facility] Blue) TELE CONSULT [id number] Notes Entered by: ANDREEA AUSTIN 18 Jun 2016 0809 ------- ------- ------- ------- -- [facility]: Note to Office/ PCM JOSIE Cabrera 06/18 [facility](T P Family Medicin e PCM Blue) [facility]) TELE CONSULT [id number] Notes Entered by: PATRICK HOGUE 10 Jul 2016 1405 ------- ------- ------- ------- -- Laly chen about FRANTZ Devries 07/10 Referred for Appointment [facility](T P Gynecol ogy Clinic) [facility]) OUTPATIENT [id number] f/u MANAGEMENT TRAINEE PROGRAM STORES (BC change) STONEY CAPPS 07/15 Released w/o Limitations [facility](T P Gynecol [facility]gy Clinic) [facility] Blue) OUTPATIENT [id number] [facility]-ms ncern about lump on rt side of neck JOSIE HART 08/27 Released w/o Limitations [facility](T P Family Medicin e [facility] Blue) [facility]) TELE CONSULT [id number] Notes Entered by: PATRICK HOGUE 01 Oct 2016 1533 ------- ------- ------- ------- -- Med JUAN GruberEY A 10/01 Other Not Elsewhere Classified [facility](T P Gynecol ogy Clinic) [facility] Blue) TELE CONSULT [id number] Notes Entered by: DESTINY ONEILL 04 Oct 2016 0853 ------- ------- ------- ------- -- Medicat ion Refill ALISSACHARLENEBROCK Darci 10/04 Other Not Elsewhere Classified [facility](T P Family Medicin e [facility] Blue) Procedures Combined list of: 1) Procedures from Department of Veterans Affairs facilities going back up to thelast 18 months, not all VA non-surgical procedures are included; 2) All procedures from the Department of Defense facilities. Procedure Procedure Type Code Date Perfomer Comments [facility] sophia THERAPEUTIC, PROPHYLACTIC, OR DIAGNOSTIC INJECTION (SPECIFY SUBSTANCE OR DRUG); SUBCUTANEOUS OR INTRAMUSCULAR 05/08/20 16 [facility] ULTRASOUND, ABDOMINAL, REAL TIME WITH IMAGE DOCUMENTATION; LIMITED (EG, SINGLE ORGAN, QUADRANT, FOLLOW-UP) 07/16/19 16 [facility] Supervised Injection Intramuscular Supervised Injection Intramuscular 26607 05/08/20 16 KHRIS OCONNELL Depo Provera, 150mg/ml, EXP:[id number], Lot:[id number], Left Deltoid, with no complications [facility] Screening papanicolaou smear; obtaining, preparing and conveyance of cervical or vaginal smear to laboratory 05/25/19 16 VILMA MCCRAY [facility] Skin Test Anergy Tuberculin Intradermal Skin Test Anergy Tuberculin Intradermal [id number] 01/01/20 14 KERRY GROVER IPPD; Series #: 1; .1 mL; ID; Left Arm; Mfg: Other; Lot: [id number]. [facility] Social History Combined list of available smoking, tobacco, and other social history from Department of Defense and Veterans Affairs facilities. Social History Type Response Date Comment [facility] sophia This section is an empty social history section. [employer]
--- OUTSIDE RECORDS SUMMARY | 2024-09-20 16:24 | XMS_ITS | Continuity of Care Document ---
Author Organization [facility] are Address [address] [place] [address] Phone Care Team Providers Care Infection Control Manager Name Role Phone Geronimo Artis MD Unavailable Unavailable Procedures Procedure Date Upper GI endoscopy, w/biopsy Advance Directives Directive Yes / No Effective Date File Name No Information Encounters Encounter Description Practice Location Reason(s) For Visit Diagnoses Date Provider [facility] [place], [address], [place], [id number], [place] tel:[phone] [facility] No Information [address]. [address], [address], [place], [place], [id number], [place]. tel:[phone] Family History Family Member Type Diagnosis Age At Onset No Information Payers Payer name Insurance type Covered libertarian ID Authoriza tion(s) [facility] CI [id number] Social History Type Description Quantity Date Captured Comments Sex Female Smoking Status No Information Chief Complaint And Reason For Visit No Information History Of Present Illness Encounter Date Complaint History Of Prese nt Illness No Information Instructions Date Instruction Additional Infor mation No Information Assessments Type Assessment Date No Information
--- OUTSIDE RECORDS SUMMARY | 2024-09-20 16:24 | XMS_ITS | Clinical Summary ---
Author Organization [facility] Address [address] [place] [address] Phone Care Team Providers Care Quality Control Inspector Heading Name Role Phone Marcela Marie MD Primary Care Provider Allergies Active Allergy Reactions Criticality Noted Date [...] Take 500 mg by mouth daily. Active XGDFODS-[id number]-OSAF ORAL Take 1 tablet by mouth daily. 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 Multiple food allergies [...] with food. Favor topical over oral preparations. 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; Hidradenitis; Polypharmacy from Last 3 Months Family History Medical History Relation Comments Diabetes [...] this topic Medical Devices Not on file Procedures Procedure Name Priority Date/Time Associated Diagnosis Comments ALANINE AMINOTRANSFERASE (ALT) Routine 08/27/2024 11:25 AM EDT Pure hypercholesterolemia Acne rosacea, erythematous telangiectatic 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 Hidradenitis Polypharmacy ASPARTATE AMINOTRANSFERASE (AST) Routine 08/27/2024 11:25 AM EDT Pure hypercholesterolemia Acne rosacea, erythematous telangiectatic 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 Hidradenitis Polypharmacy HCG (QUANTITATIVE, BLOOD) Routine 08/27/2024 11:25 AM EDT Pure hypercholesterolemia Acne rosacea, erythematous telangiectatic 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 Hidradenitis Polypharmacy LIPID PANEL Routine 08/27/2024 11:25 AM EDT Pure hypercholesterolemia URINE HCG Routine 08/27/2024 11:25 AM EDT Pure hypercholesterolemia Acne rosacea, erythematous telangiectatic 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 4 Weeks Post Conception: ??9.5 - 750 mIU/mL. 12 Weeks Post Conception: ??[address] - 690697 mIU/mL. ? Test Methodology [facility] e801 Patient results determined by assays using different manufacturers or methods may not be comparable. Blood 08/27/2024 11:2 5 AM EDT 08/27/2024 11:30 AM EDT Tiffany Foster MD LAB BLOOD ORDERA BLES Performing Organization Address [facility]/ZIP Co de Phone Number [address] [address] * Alanine aminotransferase (ALT) (08/27/2024 11:25 AM EDT) ALT 7 0 - 40 U/L [facility] Blood 08/27/2024 11:2 5 AM EDT 08/27/2024 11:30 AM EDT Tiffany Foster MD LAB BLOOD ORDERA BLES Performing Organization Address [facility] Co de Phone Number [address] [address] * Aspartate aminotransferase (AST) (08/27/2024 11:25 AM EDT) AST 19 0 - 37 U/L [facility] Blood 08/27/2024 11:2 5 AM EDT 08/27/2024 11:30 AM EDT Tiffany Foster MD LAB BLOOD ORDERA BLES Performing Organization Address [facility] Co de Phone Number [address] [address] * (ABNORMAL) Lipid panel (08/27/2024 11:25 AM EDT) HDL 35 mg/dL [facility] Comment: ? Interpretation <40 mg/dL: Low HDL cholesterol (major risk factor for CHD) Greater than or equal to 60 mg/dL: High HDL cholesterol ( negative risk factor for CHD) HDL - cholesterol is affected by a number of factors, e.g. smoking, excerise, hormones, sex and age. CHOLESTEROL 178 0 - 240 mg/dL [facility] TRIGLYCERIDES 225(H) 30 - 160 mg/dL [facility] LDL 98 50 - 129 mg/dL [facility] Comment: LDL levels in terms of risk for coronary heart disease: <100 mg/dL: Optimal 100-129 mg/dL: Near or above optimal 130-159 mg/dL: Borderline high 160-189 mg/dL: High >190 mg/dL: Very High CARDIAC RISK RATIO 5.1(H) 3.3 - 4.4 C [facility] Blood 08/27/2024 11:2 5 AM EDT 08/27/2024 11:30 AM EDT Tiffany Foster MD LAB BLOOD ORDERA BLES [facility] [address] [place] [address] from Last 3 Months Care Teams Quality Control Inspector Heading Relationship Specialty Start Date End Date Marcela Marie MD [facility] [place] [address] PCP - General Internal Medicine 08/16/20 Additional Source Comments The information contained in this document represents components of the legal health record. It is not the complete legal health record.[facility]
== END 2024-09-20 14:51 | disposition home or self-care (01) ==
LOC: HO.US 14:50
PROVIDERS: PCP Internal Medicine; Visit Provider Obstetrics & Gynecology
DX: N94.9 Unspecified condition associated with female genital organs and menstrual cycle (principal)
CPT/HCPCS: 76830; 76856

== ENCOUNTER → 2024-09-20 14:54 | Outpatient (BNV) | payer OTHER, SELFPAY | PROVIDERS: PCP Internal Medicine; Visit Provider Radiology Diagnostic Radiology | DX: D25.9 Leiomyoma of uterus, unspecified (principal) | CPT/HCPCS: 76830; 76856 ==

== ENCOUNTER 2024-11-24 09:54 | Outpatient (REF) | payer OTHER, SELFPAY ==
--- OUTSIDE RECORDS SUMMARY | 2024-11-24 10:31 | XMS_ITS | Data Portability ---
Author Organization [facility], [facility] Address [address] [place] [address] Care Team Providers Care Terrazzo Finisher Helper Name Role Phone MORGAN HENRY Primary Care Provider Assessment No assessment recorded. Plan of Treatment Reminders Order Date Submit Date Provider Last Modified By Organization Details Last Modified Time Details Appointments None record ed. Lab None record ed. Referral None record ed. Procedures None record ed. Surgeries None record ed. Imaging XR, should er, 2 or more view - 4v R shldr. room 3 025 11/13/19 hcasagrand e2 [facility] Office, [address], [place], [address], 5 11:58:40 Medication Orders None record ed. Patient TargetsNo targets recorded. Patient InstructionsNo instructions recorded. Reason for Referral None Reported. Results Created Date Observation Date Name Description Value Unit Range Abnormal Flag Note LastModifiedBy Organization Detail LastModifiedTime 11/13/19 25 11/12/2024 XR, shoul azra, 2 or more view http:/ [email or web address] ?Encry pted=s hAaTro YD8dLq bEUv6g %2BXZw aYqtaq 0bqfl% 2Fg9IQ a4ajBk vP9nXo QUaueC m3YtLR FvZlgJ JJ8mAn HZtai3 6i1121 AC0Kla X2GVKa jKiQtr MwF INTERFACE [facility] [address], [place], [address], 11/12/2024 10:35:48 11/13/19 25 11/12/2024 XR, shoul azra, 2 or more view [email or web address] ?Encry pted=s hAaTro YD8dLq bEUv6g %2BXZw aYqtaq 0bqfl% 2Fg9IQ a4ajBk vP9nXo QUaueC m3YtLR FvZlgJ JJ8mAn HZtai3 7y1904 AC0Kla X2GVKa jKiQtr MwF INTERFACE [facility] Office [address] [address] [facility] [address], [place], [address], 11/12/2024 10:35:49 Result Notes Documentation Provider Name and Address Organization Details Recorded Time Xr, Shoulder, 2 Or More View : [email or web address] Encrypted=xnJfHtoGR1cKyeQ Uv6g%7WJVcoRcdtn4gsej%2Fg 1RSh1ocSptZ3cZlPUfghSb5Xa WKOyMmbKKV1rTfXTwxp80e596 9RT6TqdN8YZUpuWfMsqQtX Not Available [facility] 11/12/2024 10:35: 48 Xr, Shoulder, 2 Or More View : [email or web address] Encrypted=gpOfOnkBU5fOteL Uv6g%3NKTzoZxrpf9vszg%2Fg 2EZq5qwSrpL6tKdRYedwIy2Kx WATvYpvBLY5bVkECeru78g153 8UE5YuaC8LTRowGtDppGnI Not Available [facility] 11/12/2024 10:35: 50 Problems Name Problem SNOMED Code Status Onset Date Resolution Date Notes Provider Name and Address Organization Details Recorded Time No complaint s [id number] Active Status: 'I'; Not Available [facility] 09:18:45 Arthritis of right glenohume ral joint 208542444639 9109 Active 2024 Alonzo Wilkinson PA-C [address], [place], [address] , [facility] 5 11:20:55 Lesion of right ulnar nerve 171816790090 103 Active 2019 Problem Code: G56.21; Problem Code Type: ICD-10; Status: 'A'; Not Available [facility] 4 11:58:41 Problem Notes None recorded. Procedures Surgical History Date Name Laterality Status Provider Name and Address Organization Details Recorded Time 5 Shoulder Joint/Bursa Injection, L/R w/US Lidocaine 1% 1 cc completed Alonzo Wilkinson PA-C [address], [place], [address], [facility] 11/12/2024 11:20:47 Imaging Results None recorded. Procedure Notes None recorded. Medical Equipment None Reported. Allergies Allergen ID Allergen Name Allergen Category Reaction Reaction Severity Criticality Documentation Date Start Date Code Code System Note Provider Name and Address Organization Details Recorded Time 50401 Iodinated contrast media (substanc e) medicatio n Not available Not available Not available 07/21/20232018 58443 2003 SNOMED Aller gyNam e: 'cont rast dye'; Not Available [facility] 4 15:12:58 Medications Name Sig Start Date Stop Date Status Note LastModified by Organization Details LastModified Time cyclobenzap rine 10 mg tablet TAKE 1 TABLET (ORAL) 3 TIMES PER DAY (MUSCLE SPASM) FOR 8 DAYS active Not Available Not Available No t Available nitrofurant oin macrocrysta l 50 mg capsule PLEASE SEE ATTACHED FOR DETAILED DIRECTION S active Not Available Not Available No t Available tizanidine 2 mg tablet PLEASE SEE ATTACHED FOR DETAILED DIRECTION S active Not Available Not Available No t Available meloxicam 15 mg tablet TAKE 1 TABLET BY MOUTH EVERY DAY active Not Available Not Available No t Available sulfamethox azole 800 mg-trimetho prim 160 mg tablet TAKE 1 TABLET BY MOUTH TWICE A DAY FOR 7 DAYS active Not Available Not Available No t Available ketorolac 10 mg tablet PLEASE SEE ATTACHED FOR DETAILED DIRECTION S active Not Available Not Available No t Available diazepam 2 mg tablet TAKE 1 TABLET ORALLY ONCE NEEDED FOR ACUTE ANXIETY AT LEAST 30 MINUTES BEFORE MRI PROCEDURE active Not Available Not Available No t Available diclofenac potassium 50 mg tablet TAKE 1 TABLET (ORAL) 2 TIMES PER DAY (PAIN) FOR 14 DAYS active Not Available Not Available No t Available oxycodone HCl-oxycodo ne-ASA 1 every [address] WHILE TAKING THIS MEDICATIO N 11/12 completed Statu s: 'Curr ent'; Not Available Not Available Not Available Vitals None Recorded Social History None recorded. Functional Status None recorded. Mental Status None recorded. Family History Nothing Reported. Medical History Condition Response Arthritis Y Gynecological HistoryNo gynecological history recorded. Obstetrics History GPAL:G 0 P 0 0 0 0 Past Encounters Encounter ID Performer Location Encounter Start Date Encounter Closed Date Diagnosis/Indication Diagnosis SNOMED-CT Code Diagnosis ICD10 Code Diagnosis Note [id number] [facility] [address] [place] [address] 11/12/2024 10:19:01 11/12/2024 11:21:10 Pain of right shoulder joint [id number] 5716659 M25.511 Arthritis of right glenohumeral joint 9703589919 004282 M19.011 Health Concerns Section Related Observation LastModified by Organization Detai ls LastModified Time None Recorded Concern Status LastModified by Organization Details LastModified Time None Recorded Advance Directives Directive None Recorded Payers Insurance Date Sequence Insurance Name Policy Number Policy Mccain Covered Member ID Mccain Member ID Guarantor Name 11/11/2024 1 [facility] (POS) [id number] Nanda Hoang [id number] 11/11/2024 1 [facility] (POS) [id number] Nanda Hoang [id number] 11/11/2024 2 () Nanda Hoang [id number] 11/11/2024 2 () Nanda Hoang [id number] 11/12/2024 2 [employer] ( SUPPLEMENT) Nanda Hoang [id number] Notes Date Note Type Note Provider Name and Address Organization Details Recorded Time 11/12/2024 text/html I am seeing this patient under the supervision of Dr. Stout who was available but did not see the patient.HPI: Nanda is a 44-year-old female known to practice last seen by Dr. Garcia in 2020. Diagnosis chronic right shoulder instability, which has resulted in early glenohumeral arthritis. She reports prior injection provided reasonable relief for a while but now is starting to experience clicking, locking, stiffness and pain to the right shoulder which is progressively worsened. Denies any recent trauma or injury.PFMSH and ROS has been reviewed, updated, and signed by me and is located in the patient s chart.PHYSICAL EXAMINATION: The patient is well appearing and in no apparent distress. Alert and oriented x 3. Gait is symmetric.Left shoulder ROM full, 5/5 strength including rotator cuff and periscapular musculature. Good muscle bulk and strength without atrophy. No evidence of instability of the shoulder. Negative impingement signs. Negative AC joint tenderness.Right shoulder exam: Elevates to 175 degrees, externally rotates 60, internal rotates to L1. Moderate intra-articular crepitus noted, with minimal impingment symptoms, No AC joint irritability. Good strength when firing the cuff to external rotation. Mild pain with resistive horizontal elevation today. No anterior instabitly noted with slightly positive apprehension sign.Cervical ROM normal without radicular symptomsNo erythema, no redness, no warmth. Peripheral, vascular, lymphatic examination, skin, neurological, coordination, reflexes, sensation are within normal limits.X-RAY REPORT: X-rays were ordered, obtained and reviewed today at [facility]. Four views of the right shoulder demonstrate type II acromion, AC joint demonstrate mild arthritic changes, glenohumeral joint demonstrates moderate arthritic changes with osteophyte formation inferior humeral head and chondral loss inferior.PLAN: Reviewed and discuss treatment options. She elected to proceed with an injection today in hopes of mitigating symptoms. This was performed under ultrasound guidance. This can be performed/repeated every 3-4 months. We discussed that most likely in the future, shoulder arthroplasty will most likely need to be occur. Alonzo Wilkinson PA-C [address], [place], [address], [facility] 11/12/2024 11:21:08 OBGyn Episode No OBEpisode recorded.
[2024-11-24 16:17] LABS: Appearance Urine Clear; Glucose Urine UA Negative (Negative); PH 6.0 (5.0-9.0); Specific Gravity - Urine 1.025 (1.005-1.025); UMIC TRIGGER UACC YES
[2024-11-24 16:44] LABS: UACC Culture Trigger YES
== END 2024-11-24 09:55 | disposition home or self-care (01) ==
LOC: HO.HMGCLDS 09:54
PROVIDERS: PCP Internal Medicine; Visit Provider Nurse Practitioner Family
DX: N39.0 Urinary tract infection, site not specified (principal)
CPT/HCPCS: 81001; 87086

== ENCOUNTER 2025-01-03 08:22 | Outpatient (AMB) | payer OTHER, SELFPAY ==
--- OUTSIDE RECORDS SUMMARY | 2015-08-20 20:00 | XMS_ITS | Continuity of Care Document ---
Author Organization [facility] are Address [address] [place] [address] Phone Care Team Providers Care Xm1 Tank Driver Name Role Phone Geronimo Artis MD Unavailable Unavailable Procedures Procedure Date Upper GI endoscopy, w/biopsy Advance Directives Directive Yes / No Effective Date File Name No Information Encounters Encounter Description Practice Location Reason(s) For Visit Diagnoses Date Provider [facility], [address], [place], [id number], [place] tel:[phone] [facility] No Information [address], [address], [place], [place], [id number], [place]. tel:[phone] Family History Family Member Type Diagnosis Age At Onset No Information Payers Payer name Insurance type Covered constitution party ID Authoriza tion(s) [facility] CI [id number] Social History Type Description Quantity Date Captured Comments Sex Female Smoking Status No Information Chief Complaint And Reason For Visit No Information History Of Present Illness Encounter Date Complaint History Of Prese nt Illness No Information Instructions Date Instruction Additional Infor mation No Information Assessments Type Assessment Date No Information
--- NOTE | 2025-01-03 08:23 | A.OFFVIS_ITS ---
Intake Visit Reasons: u/s results Allergies Iodinated Contrast Media (Iodinated Contrast Media - IV Dye) Allergy (Severe, Verified 08/24/24 13:07) ANGIOEDEMA NSAIDS (Non-Steroidal Anti-Inflamma Allergy (Mild, Verified 08/24/24 13:07) Unknown nogueira Adverse Reaction (Verified 08/24/24 13:07) Anaphylaxis vianca fruit Adverse Reaction (Uncoded 08/24/24 13:07) Anaphylaxis HPI Comments Details: The patient is scheduled telehealth visit for ultrasound follow-up regarding adnexal fullness identified on last pelvic exam. 09/20/2024 pelvic ultrasound showed the following: Uterus: The uterus is normal in size, measuring 8.0 x 3.5 x 4.4 cm. Myometrium has a normal echotexture. There is a fundal fibroid measuring 1.9 x 1.5 x 1.2 cm (previously 1.3 x 1.2 x 1.5 cm). Endometrium: The endometrial stripe measures 4 mm in thickness. Right ovary: The right ovary measures 1.7 x 1.5 x 1.4 cm. The right ovary is normal in size and echotexture. Left ovary: The left ovary measures 2.0 x 2.0 x 4.9 cm. There is a 1.9 x 1.8 x 1.7 cm cyst with low-level internal echoes which likely represents a hemorrhagic cyst. Pelvic fluid: none. [facility] Medical History Lumbar disc herniation Chronic low back pain with sciatica Rosacea History of kidney stones Acne Polyarthralgia Osteoarthritis of right shoulder Arthritis, multiple joint involvement History of seizures History of carpal tunnel syndrome Horners syndrome History of benign schwannoma Endometriosis Asthma Fibromyalgia Surgical History History of neck surgery History of adenoidectomy S/P correction of deviated nasal septum H/O elbow surgery History of carpal tunnel surgery History of tonsillectomy Family History Father Diabetes mellitus DVT (deep venous thrombosis) HTN (hypertension) Mother Osteoarthritis Maternal Grandmother Diabetes mellitus HTN (hypertension) Paternal Grandmother Throat cancer Brother No problems noted. Son No problems noted. 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 Sexual orientation: Straight/Heterosexual Gender identity: Female Cognitive needs: No Hearing needs: No Vision needs: No Female Reproductive History Menstrual Age of Menarche: 13 Review of Systems Const All systems reviewed & are unremarkable except as noted in HPI and below Reports as per HPI and Reports no additional complaints GI Reports no additional complaints Reports no additional complaints Telehealth Telehealth Telehealth Platform: Chiasma Location of provider rendering services: practice address Location of patient: address on file Patient Identification confirmed using: Name, : Yes Telehealth method: video Patient verbally consented to treatment: Yes Patient verbally consented to billing insurance company: Yes Patient informed of any privacy concerns related to visit: Yes Minutes spent on Phone/Video with Pt.: 3 Assessment & Plan Assessment & Plan (1) Uterine myoma: Code(s): D25.9 - Leiomyoma of uterus, unspecified Category: Medical Plan: Discussed with the patient the findings on pelvic ultrasound & the risk of myosarcoma; in addition reviewed with the patient that malignancy and pre malignancy cannot be ruled out without hysterectomy for pathological evaluation ; furthermore, explained to the patient the limitation of pelvic ultrasound and endometrial biopsy in the setting. Discussed with the patient the options of treatment including expectant management versus hysterectomy; the pros and cons, risks benefits of each approach were discussed with the patient including the fact that in cases of myosarcoma, surgical treatment can lead to early diagnosis and positively affects the prognosis; after further discussion, the patient decided to proceed with expectant management. Will repeat pelvic ultrasound periodically. Instructions given to patient to call in case any of the following occurs: pressure symptoms, abnormal uterine bleeding, pelvic pain; and to schedule a 12 months pelvic ultrasound (order placed) and a follow-up appointment . All questions answered, the patient verbalized understanding and agreed with the plan . (2) Complex ovarian cyst: Code(s): N83.299 - Other ovarian cyst, unspecified side Category: Medical Plan: Discussed with the patient the complex ovarian cyst by ultrasound. Discussed with the patient the Ultrasound findings, the main limitation of transvaginal ultrasonography alone as a diagnostic tool to distinguish benign from malignant masses relates to its lack of specificity and low positive predictive value for cancer. The differential diagnosis discussed with the patient includes the following but not limited to: benign and malignant gynecological and non-gynecological causes. Since last ultrasound was done in 09/20/2024 will repeat ultrasound within 1-2 weeks. Instructions given the patient to schedule an ultrasound and a follow-up appointment within 2 weeks I spent a total of 20 minutes reviewing the chart, talking to the patient via video and documenting in the medical record. Orders: Orders US pelvic and transvaginal 1 Year D25.9 - Leiomyoma of uterus, unspecified US pelvic and transvaginal Today N83.299 - Other ovarian cyst, unspecified side Coding Level of Care Code Tele Est Pt Level 3 (93687) Diagnoses Uterine myoma D25.9 Complex ovarian cyst N83.299
--- OUTSIDE RECORDS SUMMARY | 2025-01-03 08:44 | XMS_ITS | Encounter Summary ---
Author Organization [facility] Address [address] [facility] [address] [place] [address] Phone Care Team Providers Care Quarrying Specialist Name Role Phone Marcela Marie MD Primary Care Provider Encounter Details Date Type Department Care Team (Late st Contact Info) Description 09/04/2022 Transcribe Orders [facility] Specimen Processing [address] [place] [address] Paulino Owusu, DO [address] [facility], [address] [place] [address] [email or web address] Social History Tobacco Use Types Packs/Day Years Used Date Smoking Tobacco: Never Smokeless Tobacco: Never Comments Unknown Sex and Gender Information Value Date Recorded Sex Assigned at Not on file Legal Sex Female 5:53 PM EST Gender Identity Not on file Sexual Orientation Not on file documented as of this encounter Plan of Treatment Not on file documented as of this encounter Visit Diagnoses Not on filedocumented in this encounter Care Teams Quarrying Specialist Relationship Specialty Start Date End Date Marcela Marie MD [facility] [place] [address] PCP - General Internal Medicine 08/16/20 documented as of this encounter Additional Source Comments The information contained in this document represents components of the legal health record. It is not the complete legal health record.[facility]
== END 2025-01-03 09:09 | disposition home or self-care (01) ==
LOC: HO.HWS 08:22
PROVIDERS: PCP Internal Medicine; Visit Provider Obstetrics & Gynecology
DX: D25.9 Leiomyoma of uterus, unspecified (principal); N83.299 Other ovarian cyst, unspecified side
CPT/HCPCS: 99213

== ENCOUNTER 2025-01-18 08:20 | Outpatient (AMB) | payer OTHER, SELFPAY ==
--- NOTE | 2025-01-18 08:25 | A.OFFPC_ITS ---
Vital Signs 01/18/25 08:56 Height 5 ft 7 in Weight 181 lb BMI 28.3 BP 110/80 Blood Pressure Location Rt brachial Position Sitting Respiration 15 Pulse 97 Pulse Source Pulse Oximeter Temp 98.6 F Temp Source Oral Pulse Oximetry (%) 98 Oxygen Delivery Method Room Air Intake Visit Reasons: annual exam Intake Note: Pt is here today for her PE: Last mammogram 04/02/24, papsmear 08/25/24 Allergies Iodinated Contrast Media (Iodinated Contrast Media - IV Dye) Allergy (Severe, Verified 01/18/25 09:06) ANGIOEDEMA NSAIDS (Non-Steroidal Anti-Inflamma Allergy (Mild, Verified 01/18/25 09:06) Unknown nogueira Adverse Reaction (Verified 01/18/25 09:06) Anaphylaxis vianca fruit Adverse Reaction (Uncoded 01/18/25 09:06) Anaphylaxis Medication List - Last Reconciled 01/18/25 by Marcela Marie MD albuterol sulfate 90 mcg/actuation 2 inhalations inhalation Q6H PRN clindamycin phosphate 1% 1 appl topical BID fluticasone propionate 110 mcg/actuation 1 puff PO BID norethindrone acetate 5 mg PO DAILY Tobacco use date assessed: 01/18/25 Dental Screening Dental Screen Date: 01/18/25 Did you have a dental visit in the last 12 months?: Yes Did you have a dental problem in the last 6 months where you did not have access to dental care?: No Was dental information given to patient?: Patient has dentist HPI annual exam HPI Details - 44-year-old female with history recur rent kidney stones, uterine fibroid and hemorrhagic ovarian cysts seen on ultrasound, and history of lumbar disc herniation, here today for her physical exam - Uterine fibroids were identified durin g a previous ultrasound, and the patient is currently under observation for these fibroids. - A hemorrhagic ovarian cyst was recentl y discovered, causing pain, and an ultrasound is scheduled to monitor its status. - The patient has a history of lumbar di sc herniation, confirmed by MRI, and is under the care of an air traffic control specialist. - She experienced adverse effects from m eloxicam, including bruising and hematuria, leading to discontinuation of the medication. - Shoulder osteoarthritis has been progr essing, with bone spurs and a history of a tear 20 years ago, managed with cortisone injections. - Carpal tunnel syndrome and elbow issue s exacerbate shoulder pain, and physical therapy has been ineffective. - The patient has been managing rosacea with various treatments, including Accutane, which caused significant gastrointestinal side effects, now using clindamycin phosphate 1%. - The patient is being evaluated for gla ucoma, with a family history of eye issues but no confirmed diagnosis yet. -up-to-date with her breast cancer jacky hale and has an appointment already scheduled for her repeat mammogram in March. Up-to-date with her cervical cancer screening, last done August [address] Nolan [facility] Medical History Lumbar disc herniation Chronic low back pain with sciatica Rosacea History of kidney stones Acne Polyarthralgia Osteoarthritis of right shoulder Arthritis, multiple joint involvement History of seizures History of carpal tunnel syndrome Horners syndrome History of benign schwannoma Endometriosis Asthma Fibromyalgia Surgical History History of neck surgery History of adenoidectomy S/P correction of deviated nasal septum H/O elbow surgery History of carpal tunnel surgery History of tonsillectomy Family History Father Diabetes mellitus DVT (deep venous thrombosis) HTN (hypertension) Mother Osteoarthritis Maternal Grandmother Diabetes mellitus HTN (hypertension) Paternal Grandmother Throat cancer Brother No problems noted. Son No problems noted. 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 Depression Screening Interpretation: Negative Depression Screening Done: Yes Source: Developed by Drs. Todd Sanchez, Eva Serrato, Vimal Sevilla and colleagues, with an educational frank from [employer]. Thrive Questionnaire Date Thrive assessed: 06/21/24 I am a: Patient What is your living situation today?: I have a steady place to live Within the past 12 months, did the food you bought not last and you didn't have the money to get more?: Never true Within the past 12 months, did you worry whether your food would run out before you got money to buy more?: Never true Do you have trouble paying for medicines?: No Do you have trouble getting transportation to medical appointments?: No Do you have trouble paying your heating and electricity bill?: No Do you have trouble taking care of your child, family member or friend?: No Do you have trouble with day-to-day activities such as bathing, preparing meals, shopping, managing finances, etc.?: No Are you currently unemployed and looking for a job?: No Are you interested in more education?: No Please select the resources that you would like help with: None Currently or been in a relationship where the following occur: No concerns reported THRIVE Score: 0 RAJESH-7 AMB Questionnaire RAJESH-7 Date RAJESH - 7 assessed: 12/16/23 Source: Developed by Drs. Todd Sanchez, Eva Serrato, Vimal Sevilla and colleagues, with an educational frank from [employer]. Review of Systems Const All systems reviewed & are unremarkable except as noted in HPI and below Denies fever(s), Denies headache(s) and Denies weakness Eyes Denies change in vision ENT Denies dizziness, Denies headache(s) and Denies nasal congestion Card Denies chest pain, Denies lightheadedness, Denies palpitations and Denies dyspnea Resp Denies chest congestion, Denies cough and Denies dyspnea GI Denies abdominal pain, Denies change in bowel habits and Denies heartburn Denies hematuria, Denies urinary frequency, Denies dysuria and Denies urinary urgency Musc Reports no additional complaints Skin/Breast Denies breast pain, Denies breast mass, Denies lesions and Denies rash Neuro Denies dizziness, Denies headache(s) and Denies weakness Psych Reports no additional complaints Endo Denies polydipsia, Denies polyuria and Denies palpitations Soy/Lymph Reports as per HPI Aller/Immun Denies seasonal rhinorrhea Physical exam (Primary Care) Vital Signs: Last Vital Signs Temp 98.6 F 01/18/25 08:56 Pulse 97 01/18/25 08:56 Resp 15 01/18/25 08:56 BP 110/80 01/18/25 08:56 Pulse Ox 98 01/18/25 08:56 Oxygen Delivery Method Room Air 01/18/25 08:56 BMI result Body Mass Index 28.3 Tobacco/Smoking Status: Tobacco use Status Tobacco use date assessed 01/18/25 01/18/25 08:27 Patient Tobacco Use Status Never used Tobacco 01/18/25 08:27 e-Cigarette/Vaping Use Never Used 01/18/25 08:27 Depression Screening Interpretation: Negative Thrive Assessment: Date of Thrive Assessment Date Thrive assessed 06/21/24 01/18/25 08:27 Currently or been in a relationship where the following occur: No concerns reported Const Other: Alert oriented x3, no acute distress, normal gait noted Orientation/consciousness: patient oriented x3 HENMT Head: Yes normocephalic Ears: external ears normal, TM's normal bilaterally and EAC's normal Face and sinus: Yes face symmetric Mouth: Normal oral and palatal mucosa present, oropharynx normal and moist mucous membranes Neck Neck: Yes full ROM, Yes no lymphadenopathy, Yes no meningeal signs and Yes supple Chest Breast/axilla palpation: normal palpation of the breasts Resp Auscultation: clear to auscultation bilaterally Cardio Other: S1-S2 present regular rate and rhythm GI Palpation (GI): Soft to palpation, nontender, no guarding and no masses Auscultation: normal bowel sounds General: Yes deferred (UTD with cervical cancer screening, last done 08/[address] Nolan) Back/Spine/Pelvis Thoracic/Lumbar Spine: thoracic and lumbar spine normal to inspection, thoraco- lumbar ROM normal, straight leg raise negative bilaterally and paraspinal muscle tenderness bilaterally in the lower lumbar Skin Lesions: no lesions Rashes: no rashes Neuro General: patient oriented x3, gait normal, tone normal, moves all extremities, Normal light touch and pain sensation, no meningeal signs, no focal motor def icits and CN's II-XI intact bilaterally Gait exam (Neuro): Normal gait present Extrem General: Yes full ROM, Yes no joint enlargement, Yes no pedal edema, Yes no calf tenderness and Yes normal gait Psych Appearance: grossly normal and well kempt Mental Status: mental status grossly normal Speech and movement: Normal speech and movement present Affect: normal affect Coding Level of Care Code Est Pt Prev Care 40-64y(87624) Diagnoses Annual visit for general adult medical examination with abnormal findings Z00.01 History of kidney stones Z87.442 Uterine myoma D25.9 Excoriated acne L70.5 Acne type: excoriated acne Rosacea L71.9 Assessment & Plan Assessment & Plan (1) Annual visit for general adult medical examination with abnormal findings: Code(s): Z00.01 - Encounter for general adult medical examination with abnormal findings (2) History of kidney stones: Code(s): Z87.442 - Personal history of urinary calculi Category: Medical Plan: Currently asymptomatic, followed by Nephrology (3) Uterine myoma: Code(s): D25.9 - Leiomyoma of uterus, unspecified Category: Medical Plan: Followed by [facility] (4) Acne: Code(s): L70.9 - Acne, unspecified Category: Medical Qualifiers: Acne type: excoriated acne Qualified Code(s): L70.5 - Acne excoriee Plan: Followed by dermatology (5) Rosacea: Code(s): L71.9 - Rosacea, unspecified Category: Medical Plan: Followed by hand cloth cutter currently using clindamycin phosphate 1% gel Plan During the visit, we discussed the management of the patient's multiple chronic conditions, including the need for regular monitoring of uterine fibroids and the upcoming ultrasound for the hemorrhagic ovarian cyst. We reviewed the adverse effects experienced with meloxicam and the decision to discontinue its use. The patient expressed dissatisfaction with the current management of her kidney stones and is considering alternative care options. We also discussed the ongoing evaluation for glaucoma and the importance of follow-up with an community relations manager. Preventative care measures, including the scheduled mammogram, were also reviewed. Up-to-date with cervical cancer screening, sees [facility] clinic. Does not want to get any vaccines Orders: Orders Lipid Panel 01/18/25 Z13.220 - Encounter for screening for lipoid disorders
--- OUTSIDE RECORDS SUMMARY | 2025-01-18 08:54 | XMS_ITS | Continuity of Care Document ---
Author Name [facility] Organization [facility] Care Team Providers Care Color Drum Worker Name Role Phone [facility] Unavailable Unavailable Problems [...] Known Allergies Drug allergy (disorder) active 04/25/2016 [facility] Immunizations Combined list of available immunizations from the Department of Defense and Veterans Affairs facilities. Immunization Series Date Given Administered By Site Reaction Lot Number CVX Code Drug Coordinator Volunteer Services Status Comments Source tuberculin skin test; purified protein derivative solution, intradermal 0 2013 RENE CHEATHAM [id number] Other (OTH) complet ed tuberculi n [...] Source [facility] Del[facility] OUTPATIENT [id number] Notes Entered by: SIMEON SÁNCHEZ 31 Dec 2013 0946 ------- ------- ------- ------- -- Ippd RENE CHEATHAM 12/31 Released w/o Limitations [facility] Delgado([facility]) TELE CONSULT [id number] Notes Entered by: NESTOR GEORGE SA 06 Oct 2014 1406 ------- ------- ------- ------- -- Med refill VILMA MCCRAY 10/06 [facility] [facility] [place] [facility] [facility] [place] [facility] [place] OUTPATIENT [id number] bhumika mccray/ new patient / VILMA Giraldo 11/23 Released w/o Limitations [facility] [facility] [place] [facility] [facility] [place] [facility] [place] TELE CONSULT [id number] Notes Entered by: STONEY CARDOZA 16 Dec 2014 0939 ------- ------- ------- ------- -- PCM Nurse pedrito Mccray, DAVID WATKINS 12/16 [place] [facility] [place] [facility] [facility] [place] [facility] [place] TELE CONSULT [id number] Notes Entered by: NESTOR GEORGE SA 04 Jan 2015 1535 ------- ------- ------- ------- -- Medicat ion refill SINA DÍAZ 01/04 Referred for Appointment [facility] [facility] [place] [facility] [facility] [place] [facility] [place] OUTPATIENT [id number] using her inhaler 8 x a day ARMIDA HI 01/05 Released w/o Limitations [facility] [facility] [place] [facility] [facility] [place] [facility] [place] TELE CONSULT [id number] Notes Entered by: JAMI FLANNERY 04 May 2015 1443 ------- ------- ------- ------- -- HEDIS/ OVERDUE PAP/ PCM MAHENDRA/ FLANNERY DAVIDAlex Jaramillo 05/04 Referred for Appointment [facility] [facility] [place] [facility] [facility] [place] OUTPATIENT [id number] RIC TYSON PAP/ PCM VILMA TIJERINA 05/24 Released w/o Limitations [facility] [facility] [place] [facility] [facility] [place] [facility] [place] TELE CONSULT [id number] Notes Entered by: DESTINY ONEILL 01 Jun 2015 1318 ------- ------- ------- ------- -- PCM Mccray/ Pt would like all recentp ap, lab and bloodwo rk results . VILMA MCCRAY 06/01 [place] [facility] [place] [place] [facility] [place]) TELE CONSULT [id number] Notes Entered by: ANDREEA AUSTIN 13 Jun 2015 1442 ------- ------- ------- ------- -- Request ing U/S Results /PCM MAHENDRA/ ANA AUSTIN 06/13 Other Not Elsewhere Classified [facility] [employer] [place]) OUTPATIENT [id number] PCM/ER f/u abdomin al pain VILMA MCCRAY 07/17 Released w/o Limitations [facility](T P Family Medic[facility]) [facility]) TELE CONSULT [id number] Notes Entered by: BAY RAOMS 02 Aug 2015 0905 ------- ------- ------- ------- -- PCM Mahendra/ pt request ing lab results /pls call pt at VILMA MCCRAY 08/01 [facility](T P Family Medic[facility]) [facility]) TELE CONSULT [id number] Notes Entered by: OSMIN CONN 24 Aug 2015 1438 ------- ------- ------- ------- -- NETWORK RESULTS -GASTRO ENTEROL OGY-DOS [id number] IN YESSI VILMA MCCRAY 08/23 [facility](T P [facility]) [facility](TP [facility]) TELE CONSULT [id number] Notes Entered by: DESTINY ONEILL 02 Oct 2015 0914 ------- ------- ------- ------- -- Medicat ion Sarayill VILMA MCCRAY 10/01 [facility](T P Family [facility]) [facility](TP [facility]) OUTPATIENT [id number] PCM [place]/he adache for 2 days MIMA SCHERER 01/15 Released w/o Limitations [facility](T P [facility]) [facility](TP [facility]) TELE CONSULT [id number] Notes Entered by: OBLA ARREOLA 04 Mar 2016 1243 ------- ------- ------- ------- -- PCM [place]/ap pt today BOLA ARREOLA 03/04 Referred for Appointment [facility](T P [facility]) [facility]) OUTPATIENT [id number] PCM [place]/Po ssible kidney infecti on JEANNE DE LA TORRE 03/04 Released w/o Limitations [facility](T P [facility]) [facility](TP [facility]) TELE CONSULT [id number] Notes Entered by: ALEJANDRO DE LA TORRE 05 Mar 2016 0930 ------- ------- ------- ------- -- Lab results ANA AUSTIN 03/05 Referred for Appointment [facility](T P [facility]) [facility](TP Gynecolog y Clinic) OUTPATIENT [id number] Dysmeno rrhea, unspeci fied/in structe d to brass pickler packet HIENDEWAYNEBHARATISTONEY 04/25 Released w/o Limitations [facility](T P Gynecol ogy Clinic) [facility](TP Family Medicine [facility]) TELE CONSULT [id number] Notes Entered by: FELA LARSON 08 May 2016 1238 ------- ------- ------- ------- -- Nurse advise/ medicat ion for a wet mucus cough x4days pcm Contreras [phone] BOLA ARREOLA 05/08 Referred for Appointment [facility](T P [facility]) [facility](TP Gynecolog y Clinic) OUTPATIENT [id number] Notes Entered by: PATRICK HOGUE 08 May 2016 1337 ------- ------- ------- ------- -- KHRIS Guerra 05/08 Released w/o Limitations [facility](T P Gynecol ogy Clinic) [facility]( Family Medicine [facility] Blue) OUTPATIENT [id number] PCM [place]/co ANGIE Yeung 05/09 Released w/o Limitations [facility](T P [facility]) [facility]( Family Medicine [facility] Blue) OUTPATIENT [id number] PCM/est ablish care, cough x4 days- difficu lt to sleep JOSIE HART 05/15 Released w/o Limitations [facility](T P [facility]) [facility]( Family Medicine [facility] Blue) OUTPATIENT [id number] PCM/ Lump on side of neck JOSIE HART 06/05 Released w/o Limitations [facility](T P [facility]) [facility](TP Gynecolog y Clinic) OUTPATIENT [id number] Pelvic Exam/gy n follow up STONEY CAPPS 06/05 Released w/o Limitations [facility](T P Gynecol ogy Clinic) [facility](TP Family Medicine [facility] Blue) TELE CONSULT [id number] Notes Entered by: ALEJANDRO HART 11 Jun 2016 1814 ------- ------- ------- ------- -- Ultraso JOSIE Brnenan 06/12 [facility](T P Family Medicin e PCM Blue) [facility](TP Family Medicine [facility] Blue) TELE CONSULT [id number] Notes Entered by: ANDREEA AUSTIN 18 Jun 2016 0809 ------- ------- ------- ------- -- [facility]: Note to Office/ PCM JOSIE Cabrera 06/18 [facility](T P Family Medicin e PCM Blue) [facility](TP Gynecolog y Clinic) TELE CONSULT [id number] Notes Entered by: PATRICK HOGUE 10 Jul 2016 1405 ------- ------- ------- ------- -- Laly chen about FRANTZ Devries 07/10 Referred for Appointment [facility](T P Gynecol ogy Clinic) [facility](TP Gynecolog y Clinic) OUTPATIENT [id number] f/u LOFT WORKER PILE DRIVING (BC change) STONEY CAPPS 07/15 Released w/o Limitations [facility](T P Gynecol ogy Clinic) [facility](TP Family Medicine [facility] Blue) OUTPATIENT [id number] [facility] ncern about lump on rt side of neck JOSIE HART 08/27 Released w/o Limitations [facility](T P Family Medicin e [facility] Blue) [facility](TP Gynecolog y Clinic) TELE CONSULT [id number] Notes Entered by: PATRICK HOGUE 01 Oct 2016 1533 ------- ------- ------- ------- -- Med JUAN GruberEY A 10/01 Other Not Elsewhere Classified [facility](T P Gynecol ogy Clinic) [facility](TP Family Medicine [facility] Blue) TELE CONSULT [id number] Notes Entered by: DESTINY ONEILL 04 Oct 2016 0853 ------- ------- ------- ------- -- Medicat ion Refill [place] 10/04 Other Not Elsewhere Classified [facility](T P Family Medicin e [facility] Blue) Procedures Combined list of: 1) Procedures from Department of Veterans Affairs facilities going back up to thelast 18 months, not all VA non-surgical procedures are included; 2) All procedures from the Department of Defense facilities. Procedure Procedure Type Code Date Perfomer Comments Jose cortes Dr. Supervised Injection Intramuscular Supervised Injection Intramuscular [id number] 05/08/20 16 KHRIS OCONNELL Depo Provera, 150mg/ml, EXP:September2018, Lot:[id number], Left Deltoid, with no complications [facility] Screening papanicolaou smear; obtaining, preparing and conveyance of cervical or vaginal smear to laboratory 05/25/19 16 VILMA MCCRAY [facility] Skin Test Anergy Tuberculin Intradermal Skin Test Anergy Tuberculin Intradermal [id number] 01/01/20 14 KERRY GROVER IPPD; Series #: 1; .1 mL; ID; Left Arm; Mfg: Other; Lot: [id number]. DoD THERAPEUTIC, PROPHYLACTIC, OR DIAGNOSTIC INJECTION (SPECIFY SUBSTANCE OR DRUG); SUBCUTANEOUS OR INTRAMUSCULAR 05/08/20 16 [facility] ULTRASOUND, ABDOMINAL, REAL TIME WITH IMAGE DOCUMENTATION; LIMITED (EG, SINGLE ORGAN, QUADRANT, FOLLOW-UP) 07/16/19 16 DoD Social History Combined list of available smoking, tobacco, and other social history from Department of Defense and Veterans Affairs facilities. Social History Type Response Date Comment Jose cortes This section is an empty social history section. DoD
[2025-01-18 08:56] VITALS: BP 110/80; PULSE 97; RESP 15; TEMP 37; O2SAT 98; BMI 28.3
--- OUTSIDE RECORDS SUMMARY | 2025-01-18 08:56 | XMS_ITS | Encounter Summary ---
Author Organization [facility] Address [address] [facility] [address] [place] [address] Phone Care Team Providers Care Pin Game Machine Inspector Name Role Phone Marcela Marie MD Primary Care Provider Encounter Details Date Type Department Care Team (Late st Contact Info) Description 09/04/2022 Transcribe Orders [facility] Specimen Processing [address] [place] [address] Paulino Owusu, DO [address] [facility], [address] [place] [address] [email or web address] Social History Tobacco Use Types Packs/Day Years [...] on filedocumented in this encounter Care Teams Pin Game Machine Inspector Relationship Specialty Start Date End Date Marcela Marie MD [facility] [place] [place] [address] PCP - General Internal Medicine 08/16/20 documented as of this encounter Additional Source Comments The information contained in this document represents components of the legal health record. It is not the complete legal health record.[facility]
--- OUTSIDE RECORDS SUMMARY | 2025-01-18 08:59 | XMS_ITS | Clinical Summary ---
Author Organization [facility] Address [address] [place] [address] Phone Care Team Providers Care Manager Fitness Name Role Phone Marcela Marie MD Primary Care Provider Allergies Active Allergy Reactions Criticality Noted Date Comments Apple 06/24/2022 And vianca fruit Kam Anaphylaxis High 12/30/2022 Hazelnut 06/24/2022 Iodinated Contrast Media Angioedema 09/04/2020 Medications albuterol 90 mcg/actuation inhaler Inhale 2 puffs [...] Take 500 mg by mouth daily. Active CALCIUM-MAGNESIU M-ZINC ORAL Take 1 tablet by mouth daily. Active cetirizine (ZYRTEC) 10 MG tablet Take 10 mg by mouth daily as needed for allergies. Active azelaic acid (FINACEA) 15 % gel 06/20/2022 Active EPINEPHrine 0.3 mg/0.3 mL auto-injector Inject 0.3 mg into the muscle as needed for anaphylaxis . Active metroNIDAZOLE (METROCREAM) 0.75 % cream Apply [...] she is advised to follow-up with her production associate for possible early perimenopause. Multiple food allergies [...] Hi Reyes Full catastrophe living or Managing your pain before [...] large, spicy meals. Keep headboard elevated at 45 angle for nighttime. Assessment & Plan (11/12/2020 10:52 PM EDT): Avoid late, large, spicy meals. Keep headboard elevated at 45 angle for nighttime. Assessment & Plan (09/06/2020 11:48 PM EDT): Avoid late, large, spicy meals. Keep headboard elevated at 45 angle for nighttime. Keratoconjunctivitis sicca not due [...] Encounters Date Type Department Care Team Description 12/06/2024 2:16 PM EDT - 12/06/2024 11:59 PM EDT Hospital Encounter [facility] Laboratory [address] [place] [address] Tiffany Foster MD Discharge Disposition: Home or Self Care 12/06/2024 Transcribe Orders [facility] Laboratory [address] [place] [address] Tiffany Foster MD Acne vulgaris (Primary Dx) from Last 3 Months Family History Medical [...] with a working camera? Not on file Comments Unknown Sex and Gender Information Value [...] YEARS) 1998 PAP SMEAR 2001 MAMMOGRAM 2020 COVID-19 VACCINE (2023-2 5 season) 2024 SCREENING FOR DIABETES 12/07/2027 12/06/2024 SMOKING STATUS SCREENING (On ce After 26 Yrs) Completed 12/31/2023 HEPATITIS A VACCINES Aged Out No long er eligible based on patient's age to complete this topic HIB VACCINES Aged Out No longer eligi ble based on patient's age to complete this topic MENINGOCOCCAL VACCINES (ACWY) Aged Out No longer eligible based on patient's age to complete this topic MENINGOCOCCAL VACCINES (B) Aged Out N o longer eligible based on patient's age to complete this topic PNEUMOCOCCAL VACCINES (0-49 years) Aged Out No longer eligible based on patient's age to complete this topic Medical Devices Not on file Procedures Procedure Name Priority Date/Time Associated Diagnosis Comments CBC AND DIFFERENTIAL Routine 12/06/2024 2:17 PM EDT Acne vulgaris COMPREHENSIVE METABOLIC PANEL Routine 12/06/2024 2:17 PM EDT Acne vulgaris from Last 3 Months Results * (ABNORMAL) Comprehensive metabolic panel (12/06/2024 2:17 PM EDT) SODIUM 138 133 - 146 mmol/L [facility] POTASSIUM 3.7 3.3 - 5.1 mmol/L [facility] CHLORIDE 103 96 - 108 mmol/L [facility] CO2 25 21 - 35 mmol/L [facility] BUN 12 6 - 19 mg/dL [facility] CREATININE 1.10 0.5 - 1.5 mg/dL [facility] GLUCOSE 111(H) 70 - 99 mg/dL [facility] ALBUMIN 4.3 3.9 - 4.8 g/dL [facility] TOTAL PROTEIN 6.9 6.5 - 8.0 g/dL [facility] CALCIUM 9.2 8.4 - 10.3 mg/dL [facility] ALKALINE PHOSPHATASE 62 39 - 117 U/L [facility] TOTAL BILIRUBIN 0.4 0.0 - 1.2 mg/dL [facility] AST 14 0 - 37 U/L [facility] ALT <5 0 - 40 U/L [facility] GLOBULIN 2.6 1 - 4.8 g/dL [facility] EGFR 64 >59 mL/min/1.7 3m2 [facility] Comment:Estimated glomerular filtration rate calculated using the CKD-EPI refit equation. ANION GAP 14 10 - 20 mmol/L [facility] Blood 12/06/2024 2:17 PM EDT 12/06/2024 2:19 PM EDT us Tiffany Foster MD LAB BLOOD ORDERABLE S Final Result Performing Organization Address City/State/[facility] Co de Phone Number [facility] [address] [place] [address] * CBC and differential (12/06/2024 2:17 PM EDT) WBC 6.33 4.00 - 11.00 K/uL [facility] RBC 4.54 4.00 - 5.20 M/uL [facility] HGB 13.8 12.0 - 16.0 g/dL [facility] HCT 40.2 36.0 - 46.0 % [facility] PLT 291 150 - 450 K/uL [facility] MCV 88.5 80.0 - 100.0 fL [facility] MCH 30.4 27.0 - 31.0 pg [facility] MCHC 34.3 32.0 - 36.0 g/dL [facility] RDW 12.0 11.5 - 14.5 % [facility] MPV 9.7 8.4 - 12.0 fL [facility] NRBC 0.00 0.00 /100 WBCs [facility] ABSOLUTE NRBC 0.00 0.00 K/uL [facility] DIFF METHOD Auto [facility] NEUTS 53.5 48.0 - 76.0 % [facility] LYMPHS 36.2 18.0 - 41.0 % [facility] MONOS 6.8 4.0 - 11.0 % [facility] EOS 2.5 0.0 - 5.0 % [facility] BASOS 0.8 0.0 - 1.5 % [facility] Granulocytes, immature (%) 0.2 0.0 - 0.9 % [facility] ABSOLUTE NEUTS 3.39 1.92 - 7.60 K/uL [facility] ABSOLUTE LYMPHS 2.29 0.72 - 4.10 K/uL [facility] ABSOLUTE MONOS 0.43 0.16 - 1.10 K/uL [facility] ABSOLUTE EOS 0.16 0.00 - 0.50 K/uL [facility] ABSOLUTE BASOS 0.05 0.00 - 0.15 K/uL [facility] Granulocytes, immature 0.01 0.00 - 0.09 K/uL [facility] Blood 12/06/2024 2:17 PM EDT 12/06/2024 2:19 PM EDT us Tiffany Foster MD LAB BLOOD ORDERABLE S Final Result Performing Organization Address City/State/[facility] Co de Phone Number [facility] [address] [place] [address] from Last [address] [place] [address] [address] [place] [address] [employer] ([address] [employer] [place] [address] [place] [address] [employer] COMM[employer]CIAL [facility] [employer] Care Teams Manager Fitness Relationship Specialty Start Date End Date Marcela Marie MD [facility] [place] [address] PCP - General Internal Medicine 08/16/20 Additional Source Comments The information contained in this document represents components of the legal health record. It is not the complete legal health record.[facility]
== END 2025-01-18 09:46 | disposition home or self-care (01) ==
LOC: HO.HMCC 08:21
PROVIDERS: PCP Internal Medicine; Visit Provider Internal Medicine
DX: Z00.01 Encounter for general adult medical examination with abnormal findings (principal); Z87.442 Personal history of urinary calculi; D25.9 Leiomyoma of uterus, unspecified; L70.5 Acne excoriee; L71.9 Rosacea, unspecified

== ENCOUNTER 2025-01-19 13:43 | Outpatient (REF) | payer OTHER, SELFPAY ==
--- OUTSIDE RECORDS SUMMARY | 2015-08-20 20:00 | XMS_ITS | Continuity of Care Document ---
Author Organization [facility] are Address [address] [place] [address] Phone Care Team Providers Care Real Estate Listing Consultant Name Role Phone Geronimo Artis MD Unavailable Unavailable Procedures Procedure Date Upper GI endoscopy, w/biopsy Advance Directives Directive Yes / No Effective Date File Name No Information Encounters Encounter Description Practice Location Reason(s) For Visit Diagnoses Date Provider [facility], [address], [place], [id number], [place] tel:[phone] [facility] No Information [address], [address], [place], [place], [id number], [place]. tel:[phone] Family History Family Member Type Diagnosis Age At Onset No Information Payers Payer name Insurance type Covered republican ID Authoriza tion(s) [facility] CI [id number] Social History Type Description Quantity Date Captured Comments Sex Female Smoking Status No Information Chief Complaint And Reason For Visit No Information History Of Present Illness Encounter Date Complaint History Of Prese nt Illness No Information Instructions Date Instruction Additional Infor mation No Information Assessments Type Assessment Date No Information
--- NOTE | ~2025-01-19 | US_ITS ---
CLINICAL HISTORY: N20.0 - Calculus of kidney US of kidneys Comparison: US/SR - US KIDNEY BILATERAL - 12/24/23 08:50 EDT Findings: Right kidney is normal in size, echogenicity and morphology, 10.0 cm in length. No calculus, mass or hydronephrosis. Left kidney is normal in size, echogenicity and morphology, 11.0 cm in length. No calculus, mass or hydronephrosis. Limited color Doppler demonstrates unremarkable bilateral blood flow. Impression: 1. Normal renal ultrasound. This document has been electronically signed by: Carolyn Maldonado MD on 01/20/2025 10:15:09
--- OUTSIDE RECORDS SUMMARY | 2025-01-19 15:51 | XMS_ITS | Continuity of Care Document ---
Author Name [facility] Organization [facility] Care Team Providers Care Fire Claims Adjuster Name Role Phone [facility] Unavailable Unavailable Problems [...] Known Allergies Drug allergy (disorder) active 04/25/2016 [facility] Immunizations Combined list of available immunizations from the Department of Defense and Veterans Affairs facilities. Immunization Series Date Given Administered By Site Reaction Lot Number CVX Code Drug Production Designer Status Comments Source tuberculin skin test; purified protein derivative solution, intradermal 0 2013 RENE CHEATHAM [id number] Other (OTH) complet ed tuberculi n [...] Source [facility] Del[facility] OUTPATIENT [id number] Notes Entered by: SIMEON SÁNCHEZ 31 Dec 2013 0946 ------- ------- ------- ------- -- Ippd RENE CHEATHAM 12/31 Released w/o Limitations [facility] Delgado([facility]) TELE CONSULT [id number] Notes Entered by: NESTOR GEORGE SA 06 Oct 2014 1406 ------- ------- ------- ------- -- Med refill VILMA MCCRAY 10/06 [place] [facility] [place] OUTPATIENT [id number] bhumika mccray/ new patient / VILMA Giraldo 11/23 Released w/o Limitations [facility] [place] [facility] [place] TELE CONSULT [id number] Notes Entered by: STONEY CARDOZA 16 Dec 2014 0939 ------- ------- ------- ------- -- PCM Nurse pedrito Mccray, [phone] DAVID WATKINS 12/16 [facility] [place] [facility] [place] TELE CONSULT [id number] Notes Entered by: NESTOR GEORGE SA 04 Jan 2015 1535 ------- ------- ------- ------- -- Medicat ion refill SINA DÍAZ 01/04 Referred for Appointment [facility] [place] [facility] [place] OUTPATIENT [id number] using her inhaler 8 x a day ARMIDA HI 01/05 Released w/o Limitations [facility] [place] [facility] [place] TELE CONSULT [id number] Notes Entered by: JAMI FLANNERY 04 May 2015 1443 ------- ------- ------- ------- -- HEDIS/ OVERDUE PAP/ PCM MAHENDRA/ FLANNERY DAVIDAlex Jaramillo 05/04 Referred for Appointment [place] [facility] [place]) OUTPATIENT [id number] RIC TYSON PAP/ PCM VILMA TIJERINA 05/24 Released w/o Limitations [facility] [place] [facility] [place] TELE CONSULT [id number] Notes Entered by: DESTINY ONEILL 01 Jun 2015 1318 ------- ------- ------- ------- -- PCM Mccray/ Pt would like all recentp ap, lab and bloodwo rk results . VILMA MCCRAY 06/01 [place] Devries([facility]) TELE CONSULT [id number] Notes Entered by: ANDREEA AUSTIN 13 Jun 2015 1442 ------- ------- ------- ------- -- Request ing U/S Results /PCM MAHENDRA/ ANA AUSTIN 06/13 Other Not Elsewhere Classified [facility] [place] [facility]) OUTPATIENT [id number] PCM/ER f/u abdomin al pain VILMA MCCRAY 07/17 Released w/o Limitations [facility](T P Family Medic[facility]) [facility]) TELE CONSULT [id number] Notes Entered by: BAY RAMOS 02 Aug 2015 0905 ------- ------- ------- ------- -- PCM Mahendra/ pt request ing lab results /pls call pt at [phone] VILMA MCCRAY 08/01 [facility](T P Family Medic[facility]) [facility](TP [facility]) TELE CONSULT [id number] Notes Entered by: OSMIN CONN 24 Aug 2015 1438 ------- ------- ------- ------- -- NETWORK RESULTS -GASTRO ENTEROL OGY-DOS [id number] 16 IN YESSI VILMA MCCRAY 08/23 [facility](T P [facility]) [facility]) TELE CONSULT [id number] Notes Entered by: DESTINY ONEILL 02 Oct 2015 0914 ------- ------- ------- ------- -- Medicat ion Sarayill VILMA MCCRAY 10/01 [facility](T P [facility]) [facility](TP [facility]) OUTPATIENT [id number] [place]/he adache for 2 days MIMA SCHERER 01/15 Released w/o Limitations [facility](T P [facility]) [facility]) TELE CONSULT [id number] Notes Entered by: BOLA ARREOLA 04 Mar 2016 1243 ------- ------- ------- ------- -- PCM [place]/ap pt today BOLA ARREOLA 03/[address] [facility](T P [facility]) [facility](TP [facility]) OUTPATIENT [id number] PCM [place]/Po ssible kidney infecti on JEANNE DE LA TORRE 03/04 Released w/o Limitations [facility](T P [facility]) [facility]) TELE CONSULT [id number] Notes Entered by: ALEJANDRO DE LA TORRE 05 Mar 2016 0930 ------- ------- ------- ------- -- Lab results ANA AUSTIN 03/[address] [facility](T P [facility]) [facility](TP Gynecolog y Clinic) OUTPATIENT [id number] Dysmeno rrhea, unspeci fied/in structe d to excelsior picker packet HIENDEWAYNEBHARATISTONEY 04/25 Released w/o Limitations [facility](T P Gynecol ogy Clinic) [facility](TP [facility]) TELE CONSULT [id number] Notes Entered by: FELA LARSON 08 May 2016 1238 ------- ------- ------- ------- -- Nurse advise/ medicat ion for a wet mucus cough x4days pcm Contreras BOLA ARREOLA 05/[address] [facility](T P [facility]) [facility](TP Gynecolog y Clinic) OUTPATIENT [id number] Notes Entered by: PATRICK HOGUE 08 May 2016 1337 ------- ------- ------- ------- -- KHRIS Guerra 05/08 Released w/o Limitations [facility](T P Gynecol ogy Clinic) [facility]( Family [facility]) OUTPATIENT [id number] PCM [place]/co ANGIE Yeung 05/09 Released w/o Limitations [facility] P [facility]( [facility]) OUTPATIENT [id number] PCM/est ablish care, cough x4 days- difficu lt to sleep JOSIE HART 05/15 Released w/o Limitations [facility] P [facility]( [facility]) OUTPATIENT [id number] PCM/ Lump on side of neck JOSIE HART 06/05 Released w/o Limitations [facility](T P [facility](TP Gynecolog y Clinic) OUTPATIENT [id number] Pelvic Exam/gy n follow up STONEY CAPPS 06/05 Released w/o Limitations [facility](T P Gynecol ogy Clinic) [facility](TP [facility]) TELE CONSULT [id number] Notes Entered by: ALEJANDRO HART 11 Jun 2016 1814 ------- ------- ------- ------- -- Ultraso JOSIE Brennan 06/12 [facility](T P Family Medicin e PC[facility] Blue) [facility](TP [facility]) TELE CONSULT [id number] Notes Entered by: ANDREEA AUSTIN 18 Jun 2016 0809 ------- ------- ------- ------- -- RELAY HEALTH: Note to Office/ PCM JOSIE Cabrera 06/18 [facility](T P Family Medicin e PCM Blue) [facility](TP Gynecolog y Clinic) TELE CONSULT [id number] Notes Entered by: PATRICK HOGUE 10 Jul 2016 1405 ------- ------- ------- ------- -- Laly chen about FRANTZ Devries 07/[address] [facility](T P Gynecol ogy Clinic) [facility](TP Gynecolog y Clinic) OUTPATIENT [id number] f/u OUTPATIENT CASE MANAGER (BC change) STONEY CAPPS 07/15 Released w/o Limitations [facility](T P Gynecol ogy Clinic) [facility](TP [facility]) OUTPATIENT [id number] [facility]-mn ncern about lump on rt side of neck JOSIE HART 08/27 Released w/o Limitations [facility](T P [facility]) [facility](TP Gynecolog y Clinic) TELE CONSULT [id number] Notes Entered by: PATRICK HOGUE 01 Oct 2016 1533 ------- ------- ------- ------- -- Med JUAN GruberEY A 10/01 Other Not Elsewhere Classified [facility](T P Gynecol ogy Clinic) [facility](TP [facility]) TELE CONSULT [id number] Notes Entered by: DESTINY ONEILL 04 Oct 2016 0853 ------- ------- ------- ------- -- Medicat ion Refill BROCK MAXWELL 10/04 Other Not Elsewhere Classified [facility](T P Family Medic[facility] e [facility]) Procedures Combined list of: 1) Procedures from Department of Veterans Affairs facilities going back up to thelast 18 months, not all VA non-surgical procedures are included; 2) All procedures from the Department of Defense facilities. Procedure Procedure Type Code Date Perfomer Comments [facility] THERAPEUTIC, PROPHYLACTIC, OR DIAGNOSTIC INJECTION (SPECIFY SUBSTANCE OR DRUG); SUBCUTANEOUS OR INTRAMUSCULAR 05/08/20 16 [facility] ULTRASOUND, ABDOMINAL, REAL TIME WITH IMAGE DOCUMENTATION; LIMITED (EG, SINGLE ORGAN, QUADRANT, FOLLOW-UP) 07/16/19 16 [facility] Physician Supervised Injection Intramuscular Physician Supervised Injection Intramuscular [id number] 05/08/20 16 KHRIS OCONNELL Depo Provera, 150mg/ml, EXP:[id number], Lot:[id number], Left Deltoid, with no complications [facility] Screening papanicolaou smear; obtaining, preparing and conveyance of cervical or vaginal smear to laboratory 05/25/19 16 VILMA MCCRAY [facility] Skin Test Anergy Tuberculin Intradermal Skin Test Anergy Tuberculin Intradermal [id number] 01/01/20 14 KERRY GROVER IPPD; Series #: 1; .1 mL; ID; Left Arm; Mfg: Other; Lot: [id number]. [facility] Social History Combined list of available smoking, tobacco, and other social history from Department of Defense and Veterans Affairs facilities. Social History Type Response Date Comment [facility] sophia This section is an empty social history section. [facility]
--- OUTSIDE RECORDS SUMMARY | 2025-01-19 15:54 | XMS_ITS | Clinical Summary ---
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 Multiple food allergies [...] - 12/06/2024 11:59 PM EDT Hospital Encounter [facility] Laboratory [address] [place] [address] Tiffany Foster MD Discharge Disposition: Home or Self Care 12/06/2024 Transcribe Orders [facility] Laboratory [address] [place] [address] Tiffany Foster MD Acne vulgaris (Primary Dx) [...] EDT) SODIUM 138 133 - 146 mmol/L [facility] POTASSIUM 3.7 3.3 - 5.1 mmol/L [facility] CHLORIDE 103 96 - 108 mmol/L [facility] CO2 25 21 - 35 mmol/L [facility] BUN 12 6 - 19 mg/dL [facility] CREATININE 1.10 0.5 - 1.5 mg/dL [facility] GLUCOSE 111(H) 70 - 99 mg/dL [facility] ALBUMIN 4.3 3.9 - 4.8 g/dL [facility] TOTAL PROTEIN 6.9 6.5 - 8.0 g/dL [facility] CALCIUM 9.2 8.4 - 10.3 mg/dL [facility] ALKALINE PHOSPHATASE 62 39 - 117 U/L [facility] TOTAL BILIRUBIN 0.4 0.0 - 1.2 mg/dL [facility] AST 14 0 - 37 U/L [facility] ALT <5 0 - 40 U/L [facility] GLOBULIN 2.6 1 - 4.8 g/dL [facility] EGFR 64 >59 mL/min/1.7 3m2 [facility] Comment:Estimated glomerular filtration rate calculated using the CKD-EPI refit equation. ANION GAP 14 10 - 20 mmol/L [facility] Blood 12/06/2024 2:17 PM EDT 12/06/2024 2:19 PM EDT us Tiffany Foster MD LAB BLOOD ORDERABLE S Final Result Performing Organization Address City/State/[facility] Co de Phone Number [facility] [address] [place] [address] * CBC and differential (12/06/2024 2:17 PM EDT) WBC 6.33 4.00 - 11.00 K/uL [facility] RBC 4.54 4.00 - 5.20 M/uL [facility] HGB 13.8 12.0 - 16.0 g/dL [facility] HCT 40.2 36.0 - 46.0 % [facility] PLT 291 150 - 450 K/uL [facility] MCV 88.5 80.0 - 100.0 fL [facility] MCH 30.4 27.0 - 31.0 pg [facility] MCHC 34.3 32.0 - 36.0 g/dL [facility] RDW 12.0 11.5 - 14.5 % [facility] MPV 9.7 8.4 - 12.0 fL [facility] NRBC 0.00 0.00 /100 WBCs [facility] ABSOLUTE NRBC 0.00 0.00 K/uL [facility] DIFF METHOD Auto [facility] NEUTS 53.5 48.0 - 76.0 % [facility] LYMPHS 36.2 18.0 - 41.0 % [facility] MONOS 6.8 4.0 - 11.0 % [facility] EOS 2.5 0.0 - 5.0 % [facility] BASOS 0.8 0.0 - 1.5 % [facility] Granulocytes, immature (%) 0.2 0.0 - 0.9 % [facility] ABSOLUTE NEUTS 3.39 1.92 - 7.60 K/uL [facility] ABSOLUTE LYMPHS 2.29 0.72 - 4.10 K/uL [facility] ABSOLUTE MONOS 0.43 0.16 - 1.10 K/uL [facility] ABSOLUTE EOS 0.16 0.00 - 0.50 K/uL [facility] ABSOLUTE BASOS 0.05 0.00 - 0.15 K/uL [facility] Granulocytes, immature 0.01 0.00 - 0.09 K/uL [facility] Blood 12/06/2024 2:17 PM EDT 12/06/2024 2:19 PM EDT us Tiffany Foster MD LAB BLOOD ORDERABLE S Final Result Performing Organization Address City/State/[facility] Co de Phone Number [facility] [address] [place] [address] from Last [address] [address] [address] [employer] ([address] [employer]ER[employer] SERVICES [employer]CIAL [employer] [address] [address] [employer] COMMERCIAL [employer] COMMERCIAL [employer] COMMERCIAL [facility] [employer] Care Teams Public Affairs Specialist Relationship Specialty Start Date End Date Marcela Marie MD [facility] [place] [address] PCP - General Internal Medicine 08/16/20 Additional Source Comments The information contained in this document represents components of the legal health record. It is not the complete legal health record.[facility]
--- OUTSIDE RECORDS SUMMARY | 2025-01-19 15:54 | XMS_ITS | Encounter Summary ---
Author Organization [facility] Address [address] [place] [address] Phone Care Team Providers Care Stringed Instrument Repairer Name Role Phone Marcela Marie MD Primary Care Provider Encounter Details Date Type Department Care Team (Late st Contact Info) Description 09/04/2022 Transcribe Orders [facility] [address] [place] [address] Paulino Owusu, DO [address], [address] [place] [address] [email or web address] Social History Tobacco Use Types Packs/Day Years [...] on filedocumented in this encounter Care Teams Stringed Instrument Repairer Relationship Specialty Start Date End Date Marcela Marie MD [facility] [place] [address] PCP - General Internal Medicine 08/16/20 documented as of this encounter Additional Source Comments The information contained in this document represents components of the legal health record. It is not the complete legal health record.[facility]
== END 2025-01-19 13:44 | disposition home or self-care (01) ==
LOC: HO.HMGCX 13:43
PROVIDERS: PCP Internal Medicine; Visit Provider Nurse Practitioner Family
DX: N20.0 Calculus of kidney (principal)
CPT/HCPCS: 76775

== ENCOUNTER → 2025-01-19 13:47 | Outpatient (BNV) | payer OTHER, SELFPAY | PROVIDERS: PCP Internal Medicine; Visit Provider Radiology Diagnostic Radiology | DX: N20.0 Calculus of kidney (principal) | CPT/HCPCS: 76775 ==

== ENCOUNTER 2025-01-22 09:46 | Outpatient (REF) | payer OTHER, SELFPAY ==
--- NOTE | ~2025-01-22 | US_ITS ---
CLINICAL HISTORY: N83.299 - Other ovarian cyst, unspecified side US pelvis transabdominal and transvaginal Comparison: 09/20/2024 Findings: Uterus measures 8.4 x 3.4 x 4.2 cm. 16 mm (versus 19 mm previously) subserosal fundal fibroid. Neighboring more distal 11 mm subserosal fibroid not seen on prior study. No endometrial lesion, 4 mm thickness. Right ovary 2.1 x 1.2 x 1.3 cm. Left ovary 2.6 x 2.3 x 1.9 cm. 12 mm partially collapsed left ovarian cyst (this may be at level of previously noted 19 mm left ovarian cyst). No free fluid. IMPRESSION: Two subs left ovarian cyst. erosal uterine fibroids measuring up to 16 mm. 12 mm partially collapsed left ovarian cyst (this may be at level of previously noted 19 mm left ovarian cyst). This document has been electronically signed by: Claudine Zabala MD on 01/22/2025 11:24:33
--- OUTSIDE RECORDS SUMMARY | 2025-01-22 09:50 | XMS_ITS | Encounter Summary ---
Author Organization [facility] Address [address] [place] [address] Phone Care Team Providers Care Warehouse Traffic Supervisor Name Role Phone Marcela Marie MD Primary Care Provider Encounter Details Date Type Department Care Team (Late st Contact Info) Description 09/04/2022 Transcribe Orders [facility] Specimen Processing [address] [place] [address] Paulino Owusu, DO 269 [facility], [address] [place] [address] [email or web address] Social History Tobacco Use Types Packs/Day Years [...] on filedocumented in this encounter Care Teams Warehouse Traffic Supervisor Relationship Specialty Start Date End Date Marcela Marie MD [facility] [place] [place] [address] PCP - General Internal Medicine 08/16/20 documented as of this encounter Additional Source Comments The information contained in this document represents components of the legal health record. It is not the complete legal health record.[facility]
--- OUTSIDE RECORDS SUMMARY | 2025-01-22 09:52 | XMS_ITS | Clinical Summary ---
Author Organization [facility] Address [address] [place] [address] Phone Care Team Providers Care [facility] Name Role Phone Marcela Marie MD Primary [...] she is advised to follow-up with her neonatal nurse practitioner for possible early perimenopause. Multiple food allergies [...] - 12/06/2024 11:59 PM EDT Hospital Encounter [facility] [address] [place] [address] Tiffany Foster MD Discharge Disposition: Home or Self Care 12/06/2024 Transcribe Orders [facility] [address] [place] [address] Tiffany Foster MD Acne vulgaris (Primary Dx) [...] EDT) SODIUM 138 133 - 146 mmol/L [facility] POTASSIUM 3.7 3.3 - 5.1 mmol/L [facility] CHLORIDE 103 96 - 108 mmol/L [facility] CO2 25 21 - 35 mmol/L [facility] BUN 12 6 - 19 mg/dL [facility] CREATININE 1.10 0.5 - 1.5 mg/dL [facility] GLUCOSE 111(H) 70 - 99 mg/dL [facility] ALBUMIN 4.3 3.9 - 4.8 g/dL [facility] TOTAL PROTEIN 6.9 6.5 - 8.0 g/dL [facility] CALCIUM 9.2 8.4 - 10.3 mg/dL [facility] ALKALINE PHOSPHATASE 62 39 - 117 U/L [facility] TOTAL BILIRUBIN 0.4 0.0 - 1.2 mg/dL [facility] AST 14 0 - 37 U/L [facility] ALT <5 0 - 40 U/L [facility] GLOBULIN 2.6 1 - 4.8 g/dL [facility] EGFR 64 >59 mL/min/1.7 3m2 [facility] Comment:Estimated glomerular filtration rate calculated using the CKD-EPI refit equation. ANION GAP 14 10 - 20 mmol/L [facility] Blood 12/06/2024 2:17 PM EDT 12/06/2024 2:19 PM EDT us Tiffany Foster MD LAB BLOOD ORDERABLE S Final Result Performing Organization Address City/State/[facility] Co de Phone Number [facility] [address] [place] [address] * CBC and differential (12/06/2024 2:17 PM EDT) WBC 6.33 4.00 - 11.00 K/uL [facility] RBC 4.54 4.00 - 5.20 M/uL [facility] HGB 13.8 12.0 - 16.0 g/dL [facility] HCT 40.2 36.0 - 46.0 % [facility] PLT 291 150 - 450 K/uL [facility] MCV 88.5 80.0 - 100.0 fL [facility] MCH 30.4 27.0 - 31.0 pg [facility] MCHC 34.3 32.0 - 36.0 g/dL [facility] RDW 12.0 11.5 - 14.5 % [facility] MPV 9.7 8.4 - 12.0 fL [facility] NRBC 0.00 0.00 /100 WBCs [facility] ABSOLUTE NRBC 0.00 0.00 K/uL [facility] DIFF METHOD Auto [facility] NEUTS 53.5 48.0 - 76.0 % [facility] LYMPHS 36.2 18.0 - 41.0 % [facility] MONOS 6.8 4.0 - 11.0 % [facility] EOS 2.5 0.0 - 5.0 % [facility] BASOS 0.8 0.0 - 1.5 % [facility] Granulocytes, immature (%) 0.2 0.0 - 0.9 % [facility] ABSOLUTE NEUTS 3.39 1.92 - 7.60 K/uL [facility] ABSOLUTE LYMPHS 2.29 0.72 - 4.10 K/uL [facility] ABSOLUTE MONOS 0.43 0.16 - 1.10 K/uL [facility] ABSOLUTE EOS 0.16 0.00 - 0.50 K/uL [facility] ABSOLUTE BASOS 0.05 0.00 - 0.15 K/uL [facility] Granulocytes, immature 0.01 0.00 - 0.09 K/uL [facility] Blood 12/06/2024 2:17 PM EDT 12/06/2024 2:19 PM EDT us Tiffany Foster MD LAB BLOOD ORDERABLE S Final Result Performing Organization Address City/State/[facility] Co de Phone Number [facility] [address] [place] [address] from Last [address] [place] [address] [employer] GENER[employer] COMMERCIAL ([address] [employer] GENER[employer] COMMERCIAL [employer] COMMERCIAL SERVICES [employer] GENERIC COMMERCIAL [employer] GENERIC COMMER[place] [address] [employer] GENERIC COMMERCIAL [employer] GENERIC COMMERCIAL [employer] GENERIC COMMERCIAL [facility] [employer] GENERIC COMMERCIAL Care Teams [facility] Relationship Specialty Start Date End Date Marcela Marie MD [facility] [place] [address] PCP - General Internal Medicine 08/16/20 Additional Source Comments The information contained in this document represents components of the legal health record. It is not the complete legal health record.[facility]
== END 2025-01-22 09:47 | disposition home or self-care (01) ==
LOC: HO.US 09:46
PROVIDERS: PCP Internal Medicine; Visit Provider Obstetrics & Gynecology
DX: N83.299 Other ovarian cyst, unspecified side (principal)
CPT/HCPCS: 76830; 76856

== ENCOUNTER → 2025-01-22 09:48 | Outpatient (BNV) | payer OTHER, SELFPAY | PROVIDERS: PCP Internal Medicine; Visit Provider Radiology Diagnostic Radiology | DX: N83.292 Other ovarian cyst, left side (principal) | CPT/HCPCS: 76830; 76856 ==

== ENCOUNTER 2025-01-27 07:58 | Outpatient (REF) | payer OTHER, SELFPAY ==
--- OUTSIDE RECORDS SUMMARY | 2025-01-27 08:03 | XMS_ITS | Clinical Summary ---
Author Organization [facility] Address [address] [place] [address] Phone Care Team Providers Care Web Site Specialist Name Role Phone Marcela Marie MD [...] she is advised to follow-up with her fur cleaner for possible early perimenopause. Multiple food allergies [...] - 12/06/2024 11:59 PM EDT Hospital Encounter [facility] [address] [place] [address] Tiffany Foster MD Discharge Disposition: Home or Self Care 12/06/[address] [facility] [address] [place] [address] Tiffany Foster MD Acne vulgaris (Primary Dx) [...] EDT) SODIUM 138 133 - 146 mmol/L [facility] POTASSIUM 3.7 3.3 - 5.1 mmol/L [facility] CHLORIDE 103 96 - 108 mmol/L [facility] CO2 25 21 - 35 mmol/L [facility] BUN 12 6 - 19 mg/dL [facility] CREATININE 1.10 0.5 - 1.5 mg/dL [facility] GLUCOSE 111(H) 70 - 99 mg/dL [facility] ALBUMIN 4.3 3.9 - 4.8 g/dL [facility] TOTAL PROTEIN 6.9 6.5 - 8.0 g/dL [facility] CALCIUM 9.2 8.4 - 10.3 mg/dL [facility] ALKALINE PHOSPHATASE 62 39 - 117 U/L [facility] TOTAL BILIRUBIN 0.4 0.0 - 1.2 mg/dL [facility] AST 14 0 - 37 U/L [facility] ALT <5 0 - 40 U/L [facility] GLOBULIN 2.6 1 - 4.8 g/dL [facility] EGFR 64 >59 mL/min/1.7 3m2 [facility] Comment:Estimated glomerular filtration rate calculated using the CKD-EPI refit equation. ANION GAP 14 10 - 20 mmol/L [facility] Blood 12/06/2024 2:17 PM EDT 12/06/2024 2:19 PM EDT us Tiffany Foster MD LAB BLOOD ORDERABLE S Final Result Performing Organization Address City/State/[facility] Co de Phone Number [facility] [address] [place] [address] * CBC and differential (12/06/2024 2:17 PM EDT) WBC 6.33 4.00 - 11.00 K/uL [facility] RBC 4.54 4.00 - 5.20 M/uL [facility] HGB 13.8 12.0 - 16.0 g/dL [facility] HCT 40.2 36.0 - 46.0 % [facility] PLT 291 150 - 450 K/uL [facility] MCV 88.5 80.0 - 100.0 fL [facility] MCH 30.4 27.0 - 31.0 pg [facility] MCHC 34.3 32.0 - 36.0 g/dL [facility] RDW 12.0 11.5 - 14.5 % [facility] MPV 9.7 8.4 - 12.0 fL [facility] NRBC 0.00 0.00 /100 WBCs [facility] ABSOLUTE NRBC 0.00 0.00 K/uL [facility] DIFF METHOD Auto [facility] NEUTS 53.5 48.0 - 76.0 % [facility] LYMPHS 36.2 18.0 - 41.0 % [facility] MONOS 6.8 4.0 - 11.0 % [facility] EOS 2.5 0.0 - 5.0 % [facility] BASOS 0.8 0.0 - 1.5 % [facility] Granulocytes, immature (%) 0.2 0.0 - 0.9 % [facility] ABSOLUTE NEUTS 3.39 1.92 - 7.60 K/uL [facility] ABSOLUTE LYMPHS 2.29 0.72 - 4.10 K/uL [facility] ABSOLUTE MONOS 0.43 0.16 - 1.10 K/uL [facility] ABSOLUTE EOS 0.16 0.00 - 0.50 K/uL [facility] ABSOLUTE BASOS 0.05 0.00 - 0.15 K/uL [facility] Granulocytes, immature 0.01 0.00 - 0.09 K/uL [facility] Blood 12/06/2024 2:17 PM EDT 12/06/2024 2:19 PM EDT us Tiffany Foster MD LAB BLOOD ORDERABLE S Final Result Performing Organization Address City/State/[facility] Co de Phone Number [facility] [address] [place] [address] from Last [address] [place] [address] [place] [address] [employer] GENER[employer] COMMERCIAL ([address] [employer] GENER[employer] COMMERCIAL [employer] GENERIC COMMERCIAL SERVICES [employer] GENERIC COMMERCIAL [employer] GENERIC [place] [address] [place] [address] [employer] GENERIC COMMERCIAL [employer] GENERIC COMMERCIAL [employer] GENERIC COMMERCIAL [facility] SERVICES [employer] GENERIC COMMERCIAL Care Teams Web Site Specialist Relationship Specialty Start Date End Date Marcela Marie MD [facility] [place] [address] PCP - General Internal Medicine 08/16/20 Additional Source Comments The information contained in this document represents components of the legal health record. It is not the complete legal health record.[facility]
--- OUTSIDE RECORDS SUMMARY | 2025-01-27 08:03 | XMS_ITS | Encounter Summary ---
Author Organization [facility] Address [address] [facility] [address] [place] [address] Phone Care Team Providers Care Apple Turner Name Role Phone Marcela Marie MD Primary Care Provider Encounter Details Date Type Department Care Team (Late st Contact Info) Description 09/04/2022 Transcribe Orders [facility] Specimen Processing [address] [place] [address] Paulino Owusu, DO 269 [facility], [address] [place] [address] [email or web address] Social History Tobacco Use Types Packs/Day Years [...] on filedocumented in this encounter Care Teams Apple Turner Relationship Specialty Start Date End Date Marcela Marie MD [facility] [place] [address] PCP - General Internal Medicine 08/16/20 documented as of this encounter Additional Source Comments The information contained in this document represents components of the legal health record. It is not the complete legal health record.[facility]
== END 2025-01-27 07:59 | disposition home or self-care (01) ==
LOC: HO.HMGCLDS 07:58
PROVIDERS: PCP Internal Medicine; Visit Provider Internal Medicine
DX: Z13.89 Encounter for screening for other disorder (principal)

== ENCOUNTER 2025-01-28 07:27 | Outpatient (REF) | payer OTHER, SELFPAY ==
--- OUTSIDE RECORDS SUMMARY | 2015-08-20 20:00 | XMS_ITS | Continuity of Care Document ---
Author Organization [facility] are Address [address] [place] [address] Phone Care Team Providers Care Assembler Steam And Gas Turbine Name Role Phone Geronimo Artis MD Unavailable Unavailable Procedures Procedure Date Upper GI endoscopy, w/biopsy Advance Directives Directive Yes / No Effective Date File Name No Information Encounters Encounter Description Practice Location Reason(s) For Visit Diagnoses Date Provider [facility] [place], [address], [place], [id number], [place] tel:[phone] [facility] No Information [address], [address], [place], [place], [id number], [place]. tel:[phone] Family History Family Member Type Diagnosis Age At Onset No Information Payers Payer name Insurance type Covered democrat ID Authoriza tion(s) [facility] [place] [id number] Social History Type Description Quantity Date Captured Comments Sex Female Smoking Status No Information Chief Complaint And Reason For Visit No Information History Of Present Illness Encounter Date Complaint History Of Prese nt Illness No Information Instructions Date Instruction Additional Infor mation No Information Assessments Type Assessment Date No Information
--- OUTSIDE RECORDS SUMMARY | 2025-01-28 07:30 | XMS_ITS | Encounter Summary ---
Author Organization [facility] Address [address] [facility] [address] [place] [address] Phone Care Team Providers Care Assistant Editor Name Role Phone Marcela Marie MD Primary Care Provider Encounter Details Date Type Department Care Team (Late st Contact Info) Description 09/04/2022 Transcribe Orders [facility] Specimen Processing [address] [place] [address] Paulino Owusu, DO 269 [facility], [address] [place] [address] [email or web address] Social History Tobacco Use Types Packs/Day Years [...] on filedocumented in this encounter Care Teams Assistant Editor Relationship Specialty Start Date End Date Marcela Marie MD [facility] [place] [address] PCP - General Internal Medicine 08/16/20 documented as of this encounter Additional Source Comments The information contained in this document represents components of the legal health record. It is not the complete legal health record.[facility]
--- OUTSIDE RECORDS SUMMARY | 2025-01-28 07:30 | XMS_ITS | Clinical Summary ---
Author Organization [facility] Address [address] [place] [address] Phone Care Team Providers Care Slip Feeder Name Role Phone Marcela Marie MD Primary [...] she is advised to follow-up with her subassembler for possible early perimenopause. Multiple food allergies [...] - 12/06/2024 11:59 PM EDT Hospital Encounter [facility] [address] [place] [address] Tiffany Foster MD Discharge Disposition: Home or Self Care 12/06/2024 Transcribe Orders [facility] [address] [place] [address] Tiffany Foster MD Acne vulgaris (Primary Dx) [...] EDT) SODIUM 138 133 - 146 mmol/L [facility] POTASSIUM 3.7 3.3 - 5.1 mmol/L [facility] CHLORIDE 103 96 - 108 mmol/L [facility] CO2 25 21 - 35 mmol/L [facility] BUN 12 6 - 19 mg/dL [facility] CREATININE 1.10 0.5 - 1.5 mg/dL [facility] GLUCOSE 111(H) 70 - 99 mg/dL [facility] ALBUMIN 4.3 3.9 - 4.8 g/dL [facility] TOTAL PROTEIN 6.9 6.5 - 8.0 g/dL [facility] CALCIUM 9.2 8.4 - 10.3 mg/dL [facility] ALKALINE PHOSPHATASE 62 39 - 117 U/L [facility] TOTAL BILIRUBIN 0.4 0.0 - 1.2 mg/dL [facility] AST 14 0 - 37 U/L [facility] ALT <5 0 - 40 U/L [facility] GLOBULIN 2.6 1 - 4.8 g/dL [facility] EGFR 64 >59 mL/min/1.7 3m2 [facility] Comment:Estimated glomerular filtration rate calculated using the CKD-EPI refit equation. ANION GAP 14 10 - 20 mmol/L [facility] Blood 12/06/2024 2:17 PM EDT 12/06/2024 2:19 PM EDT us Tiffany Foster MD LAB BLOOD ORDERABLE S Final Result Performing Organization Address City/State/[facility] Co de Phone Number [facility] [address] [place] [address] * CBC and differential (12/06/2024 2:17 PM EDT) WBC 6.33 4.00 - 11.00 K/uL [facility] RBC 4.54 4.00 - 5.20 M/uL [facility] HGB 13.8 12.0 - 16.0 g/dL [facility] HCT 40.2 36.0 - 46.0 % [facility] PLT 291 150 - 450 K/uL [facility] MCV 88.5 80.0 - 100.0 fL [facility] MCH 30.4 27.0 - 31.0 pg [facility] MCHC 34.3 32.0 - 36.0 g/dL [facility] RDW 12.0 11.5 - 14.5 % [facility] MPV 9.7 8.4 - 12.0 fL [facility] NRBC 0.00 0.00 /100 WBCs [facility] ABSOLUTE NRBC 0.00 0.00 K/uL [facility] DIFF METHOD Auto [facility] NEUTS 53.5 48.0 - 76.0 % [facility] LYMPHS 36.2 18.0 - 41.0 % [facility] MONOS 6.8 4.0 - 11.0 % [facility] EOS 2.5 0.0 - 5.0 % [facility] BASOS 0.8 0.0 - 1.5 % [facility] Granulocytes, immature (%) 0.2 0.0 - 0.9 % [facility] ABSOLUTE NEUTS 3.39 1.92 - 7.60 K/uL [facility] ABSOLUTE LYMPHS 2.29 0.72 - 4.10 K/uL [facility] ABSOLUTE MONOS 0.43 0.16 - 1.10 K/uL [facility] ABSOLUTE EOS 0.16 0.00 - 0.50 K/uL [facility] ABSOLUTE BASOS 0.05 0.00 - 0.15 K/uL [facility] Granulocytes, immature 0.01 0.00 - 0.09 K/uL [facility] Blood 12/06/2024 2:17 PM EDT 12/06/2024 2:19 PM EDT us Tiffany Foster MD LAB BLOOD ORDERABLE S Final Result Performing Organization Address City/State/[facility] Co de Phone Number [facility] [address] [place] [address] from Last [address] [place] [address] [address] [employer] GENERIC COMMERCIAL ([address] [employer] GENER[employer] COMMERCIAL [employer] GENER[employer] COMMERCIAL SERVICES [employer] GENERIC COMMERCIAL [employer] GENERIC [place] [address] [employer] GENERIC COMMERCIAL [employer] GENERIC COMMERCIAL [employer] GENERIC COMMERCIAL [facility] SERVICES [employer] GENERIC COMMERCIAL Care Teams Slip Feeder Relationship Specialty Start Date End Date Marcela Marie MD [facility] [place] [address] PCP - General Internal Medicine 08/16/20 Additional Source Comments The information contained in this document represents components of the legal health record. It is not the complete legal health record.[facility]
[2025-01-28 11:16] LABS: Cholesterol 180 mg/dL (<200); HDL Cholesterol 36 mg/dL (>40); Magnesium 2.1 mg/dL (1.6-2.6); Triglycerides 115 mg/dL (<150)
[2025-01-28 11:23] LABS: Folate 5.2 ng/mL (> or = 4.0); Vitamin B12 301 pg/mL (200-900)
== END 2025-01-28 07:28 | disposition home or self-care (01) ==
LOC: HO.HMGCLDS 07:27
PROVIDERS: PCP Internal Medicine; Visit Provider Internal Medicine
DX: Z13.220 Encounter for screening for lipoid disorders (principal); Z13.6 Encounter for screening for cardiovascular disorders; R25.2 Cramp and spasm
CPT/HCPCS: 36415; 80061; 82306; 82607; 82746; 83735; 84207

== ENCOUNTER 2025-01-31 07:43 | Outpatient (AMB) | payer OTHER, SELFPAY ==
--- OUTSIDE RECORDS SUMMARY | 2025-01-31 07:45 | XMS_ITS | Encounter Summary ---
Author Organization [facility] Address [address] [employer] [facility] [address] [place] [address] Phone Care Team Providers Care Powertrain Design Engineer Name Role Phone Marcela Marie MD Primary Care Provider Encounter Details Date Type Department Care Team (Late st Contact Info) Description 09/04/2022 Transcribe Orders [facility] Specimen Processing [address] [place] [address] Paulino Owusu, DO 269 [facility], [address] [place] [address] [email or web address] Social History Tobacco Use Types Packs/Day Years [...] on filedocumented in this encounter Care Teams Powertrain Design Engineer Relationship Specialty Start Date End Date Marcela Marie MD [facility] [place] [address] PCP - General Internal Medicine 08/16/20 documented as of this encounter Additional Source Comments The information contained in this document represents components of the legal health record. It is not the complete legal health record.[facility]
--- OUTSIDE RECORDS SUMMARY | 2025-01-31 07:47 | XMS_ITS | Clinical Summary ---
Author Organization [facility] Address [address] [place] [address] Phone Care Team Providers Care Golf Course Keeper Name Role Phone Marcela Marie MD Primary [...] she is advised to follow-up with her block hand for possible early perimenopause. Multiple food allergies [...] - 12/06/2024 11:59 PM EDT Hospital Encounter [facility] [address] [place] [address] Tiffany Foster MD Discharge Disposition: Home or Self Care 12/06/2024 Transcribe Orders [facility] [address] [place] [address] iTffany Foster MD Acne vulgaris (Primary Dx) from [...] YEARS) 1998 PAP SMEAR 2001 MAMMOGRAM 2020 INFLUENZA VACCINE (#1) 2024 COVID-19 VACCINE (1 - 2023-2 5 season) 2025 SCREENING FOR DIABETES 12/07/2027 12/06/2024 SMOKING STATUS [...] EDT) SODIUM 138 133 - 146 mmol/L [facility] POTASSIUM 3.7 3.3 - 5.1 mmol/L [facility] CHLORIDE 103 96 - 108 mmol/L [facility] CO2 25 21 - 35 mmol/L [facility] BUN 12 6 - 19 mg/dL [facility] CREATININE 1.10 0.5 - 1.5 mg/dL [facility] GLUCOSE 111(H) 70 - 99 mg/dL [facility] ALBUMIN 4.3 3.9 - 4.8 g/dL [facility] TOTAL PROTEIN 6.9 6.5 - 8.0 g/dL [facility] CALCIUM 9.2 8.4 - 10.3 mg/dL [facility] ALKALINE PHOSPHATASE 62 39 - 117 U/L [facility] TOTAL BILIRUBIN 0.4 0.0 - 1.2 mg/dL [facility] AST 14 0 - 37 U/L [facility] ALT <5 0 - 40 U/L [facility] GLOBULIN 2.6 1 - 4.8 g/dL [facility] EGFR 64 >59 mL/min/1.7 3m2 [facility] Comment:Estimated glomerular filtration rate calculated using the CKD-EPI refit equation. ANION GAP 14 10 - 20 mmol/L [facility] Blood 12/06/2024 2:17 PM EDT 12/06/2024 2:19 PM EDT us Tiffany Foster MD LAB BLOOD ORDERABLE S Final Result Performing Organization Address City/State/[facility] Co de Phone Number [address] [address] * CBC and differential (12/06/2024 2:17 PM EDT) WBC 6.33 4.00 - 11.00 K/uL [facility] RBC 4.54 4.00 - 5.20 M/uL [facility] HGB 13.8 12.0 - 16.0 g/dL [facility] HCT 40.2 36.0 - 46.0 % [facility] PLT 291 150 - 450 K/uL [facility] MCV 88.5 80.0 - 100.0 fL [facility] MCH 30.4 27.0 - 31.0 pg [facility] MCHC 34.3 32.0 - 36.0 g/dL [facility] RDW 12.0 11.5 - 14.5 % [facility] MPV 9.7 8.4 - 12.0 fL [facility] NRBC 0.00 0.00 /100 WBCs [facility] ABSOLUTE NRBC 0.00 0.00 K/uL [facility] DIFF METHOD Auto [facility] NEUTS 53.5 48.0 - 76.0 % [facility] LYMPHS 36.2 18.0 - 41.0 % [facility] MONOS 6.8 4.0 - 11.0 % [facility] EOS 2.5 0.0 - 5.0 % [facility] BASOS 0.8 0.0 - 1.5 % [facility] Granulocytes, immature (%) 0.2 0.0 - 0.9 % [facility] ABSOLUTE NEUTS 3.39 1.92 - 7.60 K/uL [facility] ABSOLUTE LYMPHS 2.29 0.72 - 4.10 K/uL [facility] ABSOLUTE MONOS 0.43 0.16 - 1.10 K/uL [facility] ABSOLUTE EOS 0.16 0.00 - 0.50 K/uL [facility] ABSOLUTE BASOS 0.05 0.00 - 0.15 K/uL [facility] Granulocytes, immature 0.01 0.00 - 0.09 K/uL [facility] Blood 12/06/2024 2:17 PM EDT 12/06/2024 2:19 PM EDT us Tiffany Foster MD LAB BLOOD ORDERABLE S Final Result Performing Organization Address City/State/[facility] Co de Phone Number [facility] [address] [place] [address] from Last 3 Months Insurance [employer] GENERIC COMMER[place] [address] [address] SERVICES [employer] GENERIC COMMERCIAL [employer] GENERIC COMMERCIAL [employer] GENERIC COMMERCIAL [employer] GENERIC COMMERCIAL [employer] GENERIC COMMERCIAL [employer] GENERIC COMMERCIAL Member Subscriber Plan / Payer (Ef fective 2020-Present) Name:Nanda Hoang Relation to Subscriber:Self Name:Nanda Hoang Payer ID:Not on file - [facility] [employer] Type:Indemnity Address: [place] [address] [employer] GENERIC COMMERCIAL [facility] [employer] GENERIC COMMERCIAL Care Teams Golf Course Keeper Relationship Specialty Start Date End Date Marcela Marie MD [address] [facility] [place] [address] PCP - General Internal Medicine 08/16/20 Additional Source Comments The information contained in this document represents components of the legal health record. It is not the complete legal health record.[facility]
--- NOTE | 2025-01-31 07:59 | MHC.OFFVIS ---
Vital Signs 01/31/25 08:00 Height 5 ft 7 in Weight 181 lb BMI 28.3 Intake Visit Reasons: ultrasound follow up Air Director Required: No Information Interpreted: non-clinical & clinical Accompanied by: Self / Same As Patient Allergies Iodinated Contrast Media (Iodinated Contrast Media - IV Dye) Allergy (Severe, Verified 01/31/25 08:02) ANGIOEDEMA NSAIDS (Non-Steroidal Anti-Inflamma Allergy (Mild, Verified 01/31/25 08:02) Unknown nogueira Adverse Reaction (Verified 01/31/25 08:02) Anaphylaxis vianca fruit Adverse Reaction (Uncoded 01/31/25 08:02) Anaphylaxis Is last menstrual period known: No (pill) HPI Comments Details: Presenting for follow-up ultrasound done on 01/22/2025 which showed the following: Uterus measures 8.4 x 3.4 x 4.2 cm. 16 mm (versus 19 mm previously) subserosal fundal fibroid. Neighboring more distal 11 mm subserosal fibroid not seen on prior study. No endometrial lesion, 4 mm thickness. Right ovary 2.1 x 1.2 x 1.3 cm. Left ovary 2.6 x 2.3 x 1.9 cm. 12 mm partially collapsed left ovarian cyst (this may be at level of previously noted 19 mm left ovarian cyst). No free fluid. IMPRESSION: Two subs left ovarian cyst. erosal uterine fibroids measuring up to 16 mm. 12 mm partially collapsed left ovarian cyst (this may be at level of previously noted 19 mm left ovarian cyst) 09/20/2024 pelvic ultrasound showed the following: IMPRESSION: 1. 1.9 x 1.5 x 1.2 cm fundal fibroid. 2. 1.9 x 1.8 x 1.7 cm probable left ovarian hemorrhagic cyst. Follow-up is recommended in 6 weeks, at a given time in the patient's potential cycle, to document resolution. FORMERLY [facility], [facility]1983 Medical History Lumbar disc herniation Chronic low back pain with sciatica Rosacea History of kidney stones Acne Polyarthralgia Osteoarthritis of right shoulder Arthritis, multiple joint involvement History of seizures History of carpal tunnel syndrome Horners syndrome History of benign schwannoma Endometriosis Asthma Fibromyalgia Surgical History History of neck surgery History of adenoidectomy S/P correction of deviated nasal septum H/O elbow surgery History of carpal tunnel surgery History of tonsillectomy Family History Father Diabetes mellitus DVT (deep venous thrombosis) HTN (hypertension) Mother Osteoarthritis Maternal Grandmother Diabetes mellitus HTN (hypertension) Paternal Grandmother Throat cancer Brother No problems noted. Son No problems noted. 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 Sexual orientation: Straight/Heterosexual Gender identity: Female Cognitive needs: No Hearing needs: No Vision needs: No Female Reproductive History Menstrual Age of Menarche: 13 Review of Systems Const All systems reviewed & are unremarkable except as noted in HPI and below Reports as per HPI and Reports no additional complaints GI Reports no additional complaints Reports no additional complaints Physical Exam Vital Signs: BMI result Body Mass Index 28.3 Assessment & Plan Assessment & Plan (1) Complex ovarian cyst: Code(s): N83.299 - Other ovarian cyst, unspecified side Category: Medical Plan: Discussed with the patient the complex ovarian cyst by ultrasound. Discussed with the patient the Ultrasound findings, the main limitation of transvaginal ultrasonography alone as a diagnostic tool to distinguish benign from malignant masses relates to its lack of specificity and low positive predictive value for cancer. The differential diagnosis discussed with the patient includes the following but not limited to: benign and malignant gynecological and non-gynecological causes. Since complex ovarian cyst is smaller compared to previous ultrasound will repeat ultrasound in 4 more weeks for follow-up if persistent will treat accordingly. Instructions given the patient to schedule a 4 weeks follow-up ultrasound appointment. All questions were answered & the patient verbalized understanding and agreed with the plan. Orders: Orders US pelvic and transvaginal 03/04/25 N83.299 - Other ovarian cyst, unspecified side Coding Level of Care Code Est Pt Level 3 (99261) Diagnoses Complex ovarian cyst N83.299
[2025-01-31 08:00] VITALS: BMI 28.3
== END 2025-01-31 08:23 | disposition home or self-care (01) ==
LOC: HO.HWS 07:43
PROVIDERS: PCP Internal Medicine; Visit Provider Obstetrics & Gynecology
DX: N83.299 Other ovarian cyst, unspecified side (principal)
CPT/HCPCS: 99213

== ENCOUNTER → 2025-01-31 07:43 | Outpatient (BNVA) | payer OTHER, SELFPAY | PROVIDERS: PCP Internal Medicine; Visit Provider Obstetrics & Gynecology | DX: Z71.2 Person consulting for explanation of examination or test findings (principal); N83.292 Other ovarian cyst, left side | CPT/HCPCS: 99212 ==

== ENCOUNTER 2025-02-14 13:21 | Outpatient (AMB) | payer OTHER, SELFPAY ==
--- NOTE | 2025-02-14 13:22 | MHC.OFFVIS ---
Intake Visit Reasons: follow up/ labs Intake Note: Patient is present for US/LABS Urology Medication:NONE Antibiotic Allergy:NONE Blood Thinner:NONE Airplane Coverer Required: No Allergies Iodinated Contrast Media (Iodinated Contrast Media - IV Dye) Allergy (Severe, Verified 02/14/25 14:07) ANGIOEDEMA NSAIDS (Non-Steroidal Anti-Inflamma Allergy (Mild, Verified 02/14/25 14:07) Unknown nogueira Adverse Reaction (Verified 02/14/25 14:07) Anaphylaxis vianca fruit Adverse Reaction (Uncoded 02/14/25 14:07) Anaphylaxis Medication List - Last Reconciled 02/14/25 by JESSICA Givens albuterol sulfate 90 mcg/actuation 2 inhalations inhalation Q6H PRN clindamycin phosphate 1% 1 appl topical BID fluticasone propionate 110 mcg/actuation 1 puff PO BID norethindrone acetate 5 mg PO DAILY HPI Comments Details: Nanda is a 44-year-old female patient of . She has a past medical history of rosacea, nephrolithiasis, acne, polyarthralgia, history of seizure last seizure in 2000, carpal tunnel, Karen syndrome, endometriosis, asthma, and fibromyalgia. She presents to the office today for follow-up of her lower urinary tract symptoms and nephrolithiasis. In discussion with the patient today she continues to experience ongoing lower urinary tract symptoms of nocturia urinary urgency, and urinary frequency. She reports she has limited bladder triggers and irritants and has not found this helpful. She reports having followed up with Dr. Ovidio nair for ongoing issues with ovarian fibroids and cyst in his potentially having a surgical intervention however is awaiting results of another ultrasound that is scheduled for sometime in February. She discusses her reluctantcy and taking medications as she feels she experiences many side effects. We did discussed at length potential causes of lower urinary tract symptoms as well as further treatment options and risks and benefits of these treatment options. Recent renal imaging results were reviewed with the patient today. 02/10 bilateral kidneys are normal in size, echogenicity, and morphology. No renal calculi, masses, and or hydronephrosis noted. Normal renal ultrasound per radiology report. She reports to be drinking a proximally 80 oz of water per day if not more. When asked she also reports a history of IBS. We discussed correlation of bowel issues in relation to lower urinary tract symptoms. In office urinalysis results reviewed with the patient today 2+ microscopic hematuria otherwise within normal limits. She denies any previous history of nicotine dependence and or workplace chemical exposure. We did discuss at length potential causes of lower urinary tract symptoms she is experiencing as well as microscopic hematuria. We discussed further interventions and risks and benefits of these interventions. She denies incontinence, hematuria, dysuria, foul smelling urine, changes to urinary stream, flank pain, fever, and or chills. She otherwise offers no other issues or concerns at this time. [facility] Medical History Lumbar disc herniation Chronic low back pain with sciatica Rosacea History of kidney stones Acne Polyarthralgia Osteoarthritis of right shoulder Arthritis, multiple joint involvement History of seizures History of carpal tunnel syndrome Horners syndrome History of benign schwannoma Endometriosis Asthma Fibromyalgia Surgical History History of neck surgery History of adenoidectomy S/P correction of deviated nasal septum H/O elbow surgery History of carpal tunnel surgery History of tonsillectomy Family History Father Diabetes mellitus DVT (deep venous thrombosis) HTN (hypertension) Mother Osteoarthritis Maternal Grandmother Diabetes mellitus HTN (hypertension) Paternal Grandmother Throat cancer Brother No problems noted. Son No problems noted. 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 Sexual orientation: Straight/Heterosexual Gender identity: Female Cognitive needs: No Hearing needs: No Vision needs: No Female Reproductive History Menstrual Age of Menarche: 13 Review of Systems Const All systems reviewed & are unremarkable except as noted in HPI and below Physical Exam Const General: cooperative, healthy appearing, comfortable, no acute distress, well developed, alert and awake Orientation/consciousness: patient oriented x3 Limitations: no limitations HEENT Head: Yes normal to inspection, Yes normocephalic and Yes atraumatic Ears: hearing grossly normal bilaterally Eyes General: appearance normal, both eyes and all related structures Neck Neck: Yes normal visual inspection and Yes trachea midline Chest Chest palpation & inspection: normal inspection of the chest Resp Effort & Inspection: normal respiratory effort and able to speak in complete sentences Cardio Rate: regular rate GI Inspection: Yes normal to inspection General: Yes no CVA tenderness Back/Spine/Pelvis Back: no CVA tenderness Skin General skin exam: no rashes or lesions noted Neuro General: patient oriented x3 Extrem General: Yes normal to inspection Psych Appearance: grossly normal and well kempt Mental Status: mental status grossly normal Speech and movement: Normal speech and movement present and Clear speech present Affect: normal affect Attitude: cooperative Thought process: Normal thought process present Thought content: Normal thought content present Insight: Fair insight present (Psych) Judgement: Fair judgement present (Psych) Results AMB Urinalysis, Automated UA Leukoctes 0 [place]/uL Last Edit by Jesus Reeder [facility] on 02/14/25 13:39 UA Nitrite Negative Last Edit by Jesus Reeder [facility] on 02/14/25 13:39 UA Urobilinogen 0.2 mg/dL Last Edit by Jesus Reeder [facility] on 02/14/25 13:39 UA Protein 0 mg/dL Last Edit by Jesus Reeder [facility] on 02/14/25 13:39 UA pH 6.0 Last Edit by Jesus Reeder [facility] on 02/14/25 13:39 UA Blood 80 Rodo/uL Last Edit by Jesus Reeder [facility] on 02/14/25 13:39 UA Specific [place] 1.015 Last Edit by Jesus Reeder [facility] on 02/14/25 13:39 UA Ketone Negative Last Edit by Jesus Reeder [facility] on 02/14/25 13:39 UA Bilirubin 0 mg/dL Last Edit by Jesus Reeder [facility] on 02/14/25 13:39 UA Glucose 0 mg/dL Last Edit by Jesus Reeder [facility] on 02/14/25 13:39 Results Reviewed Results Reviewed: Laboratory Last Values Urine pH (Auto) 6.0 02/14/25 13:39 Specific [place] (Auto) 1.015 02/14/25 13:39 Urine Protein (Auto) 0 mg/dL 02/14/25 13:39 Glucose (UA)(Auto) 0 mg/dL 02/14/25 13:39 Urine Ketones (Auto) Negative 02/14/25 13:39 Urine Blood (Auto) 80 Rodo/uL 02/14/25 13:39 Urine Nitrite (Auto) Negative 02/14/25 13:39 Urine Bilirubin (Auto) 0 mg/dL 02/14/25 13:39 Urine Urobilinogen (Auto) 0.2 mg/dL 02/14/25 13:39 Leukocyte Esterase (Auto) 0 [place]/uL 02/14/25 13:39 Date of Service: 01/19/25 Procedure(s): US renal BI Findings: Right kidney is normal in size, echogenicity and morphology, 10.0 cm in length. No calculus, mass or hydronephrosis. Left kidney is normal in size, echogenicity and morphology, 11.0 cm in length. No calculus, mass or hydronephrosis. Limited color Doppler demonstrates unremarkable bilateral blood flow. Impression: 1. Normal renal ultrasound. Assessment & Plan Assessment & Plan (1) History of kidney stones: Code(s): Z87.442 - Personal history of urinary calculi Category: Medical (2) Microscopic hematuria: Code(s): R31.29 - Other microscopic hematuria Category: Medical (3) Lower urinary tract symptoms: Code(s): R39.9 - Unspecified symptoms and signs involving the genitourinary system Category: Medical Plan In office urinalysis results reviewed with the patient today; as noted above; will send for urine cytology. We discussed potential causes of nephrolithiasis, microscopic hematuria, and lower urinary tract symptoms patient is experiencing; we discussed further interventions and risks and benefits of these interventions. All questions were answered. Continue with adequate hydration as discussed. Information provided regarding lower urinary tract symptoms. Will refer to pelvic floor therapy Recent renal imaging results reviewed with the patient today; as noted above. Follow-up next available in office cystoscopy; or sooner with any issues, concerns, and or questions. Orders: Orders Urine Cytology Today R31.29 - Other microscopic hematuria AMB Urinalysis Automated Today Z13.9 - Encounter for screening, unspecified PT Evaluation and Treatment Today R39.9 - Unspecified symptoms and signs involving the genitourinary system Patient Instructions: The patient had an opportunity to ask questions regarding the treatment plan. All questions were answered. Physical exam, labs, and imaging were discussed and reviewed in detail. As well as risks, benefits, and discussion of treatment choices. No major barriers to understanding were identified. The patient expressed understanding and agreement with the above treatment plan. The patient was made aware they should contact our office by phone for worsening of their current condition, the appearance of new symptoms, or with any questions or concerns. Compliance is encouraged with any medications and follow up testing that is ordered. It is a privilege to be allowed the opportunity to participate in? your urological care.? Again, if you have any questions or concerns If you have any questions or concerns please do not hesitate to contact me. The office is [phone]. This note is constructed using voice recognition software. While every effort has been made to ensure accuracy casing man errors may have been included. Yours sincerely, JESSICA Givens Coding Level of Care Code Est Pt Level 3 (01305) Complex EM visit Add On G2211 Diagnoses History of kidney stones Z87.442 Microscopic hematuria R31.29 Lower urinary tract symptoms R39.9
== END 2025-02-14 14:09 | disposition home or self-care (01) ==
PROVIDERS: PCP Internal Medicine; Visit Provider Nurse Practitioner Family
DX: Z87.442 Personal history of urinary calculi (principal); R31.29 Other microscopic hematuria; R39.9 Unspecified symptoms and signs involving the genitourinary system; Z13.9 Encounter for screening, unspecified
CPT/HCPCS: 99213

== ENCOUNTER 2025-02-14 13:21 | Outpatient (REF) | payer OTHER, SELFPAY ==
--- OUTSIDE RECORDS SUMMARY | 2025-02-14 15:15 | XMS_ITS | Clinical Summary ---
Author Organization [facility] Address [address] [place] [id number] Phone Care Team Providers Care Records Officer Name Role Phone Marcela Marie MD Primary [...] she is advised to follow-up with her art history instructor for possible early perimenopause. Multiple food [...] - 12/06/2024 11:59 PM EDT Hospital Encounter [facility] Laboratory [address] [place] [address] Tiffany Foster MD Discharge Disposition: Home or Self Care 12/06/2024 Transcribe Orders [facility] Laboratory [address] [place] [address] Tiffany Foster MD Acne vulgaris (Primary Dx) [...] EDT) SODIUM 138 133 - 146 mmol/L [facility] POTASSIUM 3.7 3.3 - 5.1 mmol/L [facility] CHLORIDE 103 96 - 108 mmol/L [facility] CO2 25 21 - 35 mmol/L [facility] BUN 12 6 - 19 mg/dL [facility] CREATININE 1.10 0.5 - 1.5 mg/dL [facility] GLUCOSE 111(H) 70 - 99 mg/dL [facility] ALBUMIN 4.3 3.9 - 4.8 g/dL [facility] TOTAL PROTEIN 6.9 6.5 - 8.0 g/dL [facility] CALCIUM 9.2 8.4 - 10.3 mg/dL [facility] ALKALINE PHOSPHATASE 62 39 - 117 U/L [facility] TOTAL BILIRUBIN 0.4 0.0 - 1.2 mg/dL [facility] AST 14 0 - 37 U/L [facility] ALT <5 0 - 40 U/L [facility] GLOBULIN 2.6 1 - 4.8 g/dL [facility] EGFR 64 >59 mL/min/1.7 3m2 [facility] Comment:Estimated glomerular filtration rate calculated using the CKD-EPI refit equation. ANION GAP 14 10 - 20 mmol/L [facility] Blood 12/06/2024 2:17 PM EDT 12/06/2024 2:19 PM EDT us Tiffany Foster MD LAB BLOOD ORDERABLE S Final Result Performing Organization Address City/State/[facility] Co de Phone Number [address] [address] * CBC and differential (12/06/2024 2:17 PM EDT) WBC 6.33 4.00 - 11.00 K/uL [facility] RBC 4.54 4.00 - 5.20 M/uL [facility] HGB 13.8 12.0 - 16.0 g/dL [facility] HCT 40.2 36.0 - 46.0 % [facility] PLT 291 150 - 450 K/uL [facility] MCV 88.5 80.0 - 100.0 fL [facility] MCH 30.4 27.0 - 31.0 pg [facility] MCHC 34.3 32.0 - 36.0 g/dL [facility] RDW 12.0 11.5 - 14.5 % [facility] MPV 9.7 8.4 - 12.0 fL [facility] NRBC 0.00 0.00 /100 WBCs [facility] ABSOLUTE NRBC 0.00 0.00 K/uL [facility] DIFF METHOD Auto [facility] NEUTS 53.5 48.0 - 76.0 % [facility] LYMPHS 36.2 18.0 - 41.0 % [facility] MONOS 6.8 4.0 - 11.0 % [facility] EOS 2.5 0.0 - 5.0 % [facility] BASOS 0.8 0.0 - 1.5 % [facility] Granulocytes, immature (%) 0.2 0.0 - 0.9 % [facility] ABSOLUTE NEUTS 3.39 1.92 - 7.60 K/uL [facility] ABSOLUTE LYMPHS 2.29 0.72 - 4.10 K/uL [facility] ABSOLUTE MONOS 0.43 0.16 - 1.10 K/uL [facility] ABSOLUTE EOS 0.16 0.00 - 0.50 K/uL [facility] ABSOLUTE BASOS 0.05 0.00 - 0.15 K/uL [facility] Granulocytes, immature 0.01 0.00 - 0.09 K/uL [facility] Blood 12/06/2024 2:17 PM EDT 12/06/2024 2:19 PM EDT us Tiffany Foster MD LAB BLOOD ORDERABLE S Final Result Performing Organization Address City/State/[facility] Co de Phone Number [facility] [address] [place] [address] from Last 3 Months Insurance [employer] [address] [address] SERVICES [employer]IC COMMERCIAL [employer]CIAL [employer] COMM[employer]CIAL [employer] COMM[employer]CIAL [employer] COMM[employer]CIAL [employer] COMM[employer]CIAL [employer] GENERIC COMMERCIAL [facility] [employer] GENERIC COMMERCIAL Care Teams Records Officer Relationship Specialty Start Date End Date Marcela Marie MD [address] [place] [address] PCP - General Internal Medicine 08/16/20 Additional Source Comments The information contained in this document represents components of the legal health record. It is not the complete legal health record.[facility]
--- OUTSIDE RECORDS SUMMARY | 2025-02-14 15:15 | XMS_ITS | Encounter Summary ---
Author Organization [facility] Address [address] [place] [address] Phone Care Team Providers Care Feed Research Aide Name Role Phone Marcela Marie MD Primary Care Provider Encounter Details Date Type Department Care Team (Late st Contact Info) Description 09/04/2022 Transcribe Orders [facility] Specimen Processing [address] [place] [address] Paulino Owusu, DO [address], [address] [place] [address] [email or web address] Social History Tobacco Use Types Packs/Day Years [...] on filedocumented in this encounter Care Teams Feed Research Aide Relationship Specialty Start Date End Date Marcela Marie MD [facility] [place] [address] PCP - General Internal Medicine 08/16/20 documented as of this encounter Additional Source Comments The information contained in this document represents components of the legal health record. It is not the complete legal health record.[facility]
== END 2025-02-14 13:22 | disposition home or self-care (01) ==
LOC: HO.LAB 13:21
PROVIDERS: PCP Internal Medicine; Visit Provider Nurse Practitioner Family
DX: R31.29 Other microscopic hematuria (principal); R39.9 Unspecified symptoms and signs involving the genitourinary system; Z87.442 Personal history of urinary calculi; Z13.89 Encounter for screening for other disorder
CPT/HCPCS: 81003; 88112; 99212

== ENCOUNTER 2025-03-07 13:43 | Outpatient (REF) | payer OTHER, SELFPAY ==
--- NOTE | ~2025-03-07 | US_ITS ---
EXAMINATION: US PELVIS CLINICAL INFORMATION: Complex ovarian cyst left ovary. COMPARISON: Numerous priors, most recently 01/22/2025, and 09/20/2024. TECHNIQUE: Ultrasound of the pelvis is performed using both transabdominal and transvaginal transducers along with Doppler. Transvaginal imaging is performed due to inadequate visualization transabdominally. FINDINGS: Uterus: The uterus is anteverted, anteflexed, and measures 9.0 x 3.1 x 4.3 cm. Normal-appearing cervix. The double wall endometrial thickness is 2 mm. It is uniform without irregularity. The uterus is smooth in contour and has heterogeneous myometrial echogenicity. There is a subendometrial tiny cystic focus present, and there are tiny hyperechoic foci seen in the myometrium. These findings could represent adenomyosis. These findings were previously seen. There are 2 fibroids present: There is a right posterior subserosal fibroid measuring 1.5 x 1.7 x 1.7 cm, stable from prior. There is a left posterior subserosal mid uterine segment fibroid measuring 1.2 x 1.0 x 1.2 cm, also stable from prior. Adnexa: Both ovaries are visualized. There is normal color flow to the adnexa. There is no ovarian torsion. There is no pelvic ascites or fluid collection. There are no adnexal masses. Right ovary measures 2.1 x 1.3 x 1.9 cm. Volume = 2.7 mL. Normal sonographic appearance. Left ovary measures 3.2 x 2.1 x 2.2 cm. Volume = 7.7 mL. There is a follicular simple cyst measuring 2.0 x 1.9 x 1.5 cm. US/US pelvic and transvaginal IMPRESSION: 1. There are 2 small uterine fibroid tumors, the larger measuring 1.7 cm, grossly stable from the prior examinations. 2. There is heterogeneous myometrial echotexture, with hyperechoic foci, and a tiny subendometrial cystic focus. Although nonspecific, these findings have been described with adenomyosis. 3. The ovaries are normal. There is a simple follicular cyst on the left measuring 2.0 cm. Electronically signed by: Elmo Brown MD 03/07/2025 04:06 PM EDT
--- OUTSIDE RECORDS SUMMARY | 2025-03-07 16:56 | XMS_ITS | Encounter Summary ---
Author Organization [facility] Address [address] [place] [address] Phone Care Team Providers Care Media Law Faculty Member Name Role Phone Marcela Marie MD Primary Care Provider Encounter Details Date Type Department Care Team (Late st Contact Info) Description 09/04/2022 Transcribe Orders [facility] Specimen Processing [address] [place] [address] Paulino Owusu, DO [address] [facility] [address] [facility], [address] [place] [address] [email or web address] Social History Tobacco Use Types Packs/Day Years [...] on filedocumented in this encounter Care Teams Media Law Faculty Member Relationship Specialty Start Date End Date Marcela Marie MD [facility] [place] [address] PCP - General Internal Medicine 08/16/20 documented as of this encounter Additional Source Comments The information contained in this document represents components of the legal health record. It is not the complete legal health record.[facility]
--- OUTSIDE RECORDS SUMMARY | 2025-03-07 16:57 | XMS_ITS | Data Portability ---
Author Organization [facility], [facility] Address [address] [place] [address] Care Team Providers Care Ball Thread Machine Tender Name Role Phone MORGAN HENRY Primary Care [...] shldr. room 3 025 11/13/19 hcasagrand e2 [facility] Office, [address], [place], [address], 5 11:58:40 Medication Orders None record ed. [...] a4ajBk vP9nXo QUaueC m3YtLR FvZlgJ JJ8mAn HZtai3 8e6113 AC0Kla X2GVKa jKiQtr MwF INTERFACE [facility] [address], [place], [address], 11/12/2024 10:35:48 11/13/19 25 11/12/2024 XR, shoul azra, 2 or more view http:/ [email or web address] ?Encry pted=s hAaTro YD8dLq bEUv6g %2BXZw aYqtaq 0bqfl% 2Fg9IQ a4ajBk vP9nXo QUaueC m3YtLR FvZlgJ JJ8mAn HZtai3 9a9881 AC0Kla X2GVKa jKiQtr MwF INTERFACE [facility] Office [address], [place], [address], 11/12/2024 10:35:49 Result Notes Documentation Provider Name and Address Organization Details Recorded Time Xr, Shoulder, 2 Or More View : [email or web address] Encrypted=mjHhKlvBN7kDqzR Uv6g%2YLKhtExwfy6ankl%2Fg 2PRd2vxOdtH3zUcVCxrsZk2To GGDzEgrXWC3dXdLDotu34e309 7LZ2FsaR4JYQjyBsMphTpA Not Available [facility] 11/12/2024 10:35: 48 Xr, Shoulder, 2 Or More View : [email or web address] Encrypted=qyFiRwwHE6cOtjN Uv6g%5BEMikWnceo2lsdu%2Fg 9ZGi7tnIsbZ4sNtSSoxeOi3Yz QKUzNqmTNL2iFxWMjbq34d977 1ER4VqdI3XGKtjKhNefPaE Not Available [facility] 11/12/2024 10:35: 50 Problems Name Problem SNOMED Code Status Onset Date Resolution Date Notes Provider Name and Address Organization Details Recorded Time No complaint s [id number] Active Status: 'I'; Not Available [facility] 09:18:45 Lesion of right ulnar nerve 804360483997 103 Active 2019 Problem Code: G56.21; Problem Code Type: ICD-10; Status: 'A'; Not Available [facility] 4 11:58:41 Arthritis of right glenohume ral joint 355294368537 9109 Active 2024 Alonzo Wilkinson PA-C [address], [place], [address] , [facility] 5 11:20:55 Problem Notes None recorded. Procedures Surgical History Date Name Laterality Status Provider Name and Address Organization Details Recorded Time 5 Shoulder Joint/Bursa Injection, L/R w/US Lidocaine 1% 1 cc completed Alonzo Wilkinson PA-C [address], [place], [address], [facility] 11/12/2024 11:20:47 Imaging Results None recorded. Procedure Notes None recorded. Medical Equipment None Reported. Allergies Allergen ID Allergen Name Allergen Category Reaction Reaction Severity Criticality Documentation Date Start Date Code Code System Note Provider Name and Address Organization Details Recorded Time 76503 Iodinated contrast media (substanc e) medicatio n Not available Not available Not available 07/21/20232018 40047 2003 SNOMED Aller gyNam e: 'cont rast dye'; Not Available [facility] 4 15:12:58 Medications Name Sig Start Date [...] Diagnosis SNOMED-CT Code Diagnosis ICD10 Code Diagnosis IMO Codes Diagnosis Note [id number] ANNA Gusman Clinical [address] [place] [address] 11/12/2024 10:19:01 11/24/2024 15:52:55 Pain of right shoulder joint 9648001483 7797575 M25.511 539087 Arthritis of right glenohumeral joint 0635688898 166532 M19.011 [id number] Health Concerns Section Related Observation LastModified by Organization Detai ls LastModified Time None Recorded Concern Status LastModified by Organization Details LastModified Time None Recorded Advance Directives Directive None Recorded Payers Insurance Date Sequence Insurance Name Policy Number Policy Mccain Covered Member ID Mccain Member ID Guarantor Name 11/24/2024 1 [facility] HEALTH PL[facility] (POS) [id number] Nanda Hoang [id number] 11/11/[address] [facility]ALTH [facility] (POS) [id number] Nanda Hoang [id number] 11/11/2024 2 () Nanda Hoang [id number] 11/11/2024 2 () Nanda Hoang [id number] 11/24/2024 2 [employer] ( SUPPLEMENT) Nanda Hoang [id number] Notes Date Note Type Note Provider Name and Address Organization Details Recorded Time 11/12/2024 text/html I am seeing this patient under the supervision of Dr. Sotut who was available but did not see [...] were ordered, obtained and reviewed today at [facility]. Four views of the right shoulder [...] to be occur. Alonzo Wilkinson PA-C [address], [place], [address], [place] [facility] 11/12/2024 11:21:08 OBGyn Episode No OBEpisode recorded.
== END 2025-03-07 13:44 | disposition home or self-care (01) ==
LOC: HO.US 13:43
PROVIDERS: PCP Internal Medicine; Visit Provider Obstetrics & Gynecology
DX: N83.209 Unspecified ovarian cyst, unspecified side (principal)
CPT/HCPCS: 76830; 76856

== ENCOUNTER → 2025-03-07 13:45 | Outpatient (BNV) | payer OTHER, SELFPAY | PROVIDERS: PCP Internal Medicine; Visit Provider Radiology Diagnostic Radiology | DX: D25.9 Leiomyoma of uterus, unspecified (principal); N83.02 Follicular cyst of left ovary | CPT/HCPCS: 76830; 76856 ==

== ENCOUNTER 2025-03-14 11:09 | Outpatient (AMB) | payer OTHER, SELFPAY ==
[2025-03-14 12:13] VITALS: BP 122/86; PULSE 85; RESP 16; TEMP 36.7; O2SAT 98; BMI 28.0
--- NOTE | 2025-03-14 12:13 | MHC.PC.OV ---
Vital Signs 03/14/25 12:13 Height 5 ft 7 in Weight 179 lb BMI 28.0 BP 122/86 Blood Pressure Location Rt brachial Position Sitting Respiration 16 Pulse 85 Pulse Source Pulse Oximeter Temp 98.0 F Temp Source Oral Pulse Oximetry (%) 98 Oxygen Delivery Method Room Air Intake Visit Reasons: hair loss concern Allergies Iodinated Contrast Media (Iodinated Contrast Media - IV Dye) Allergy (Severe, Verified 03/14/25 12:34) ANGIOEDEMA NSAIDS (Non-Steroidal Anti-Inflamma Allergy (Mild, Verified 03/14/25 12:34) Unknown nogueira Adverse Reaction (Verified 03/14/25 12:34) Anaphylaxis vianca fruit Adverse Reaction (Uncoded 03/14/25 12:34) Anaphylaxis Medication List - Last Reconciled 03/14/25 by Marcela Marie MD albuterol sulfate 90 mcg/actuation 2 inhalations inhalation Q6H PRN azelaic acid 15% 1 appl topical BID clindamycin phosphate 1% 1 appl topical BID fluticasone propionate 110 mcg/actuation 1 puff PO BID norethindrone acetate 5 mg PO DAILY Tobacco use date assessed: 03/14/25 Dental Screening Dental Screen Date: 03/14/25 Did you have a dental visit in the last 12 months?: Yes Did you have a dental problem in the last 6 months where you did not have access to dental care?: No Was dental information given to patient?: Patient has dentist HPI hair loss concern HPI Details The patient is a 44-year-old female presenting today complaining of having significant hair loss. The hair loss is diffuse, and her hairdresser also commented on the substantial amount of hair she is losing. Denies any significant stressors in her personal work life. Complains of in itchy scalp, t has a history of dandruff and has been using Head & Shoulders shampoo for years without changing her shampoo in the last two years. The patient has a history of acne and is followed by a truck technician, Dr. Foster. A trial of Accutane was discontinued due to severe side effects, including intense abdominal pain and constipation. She does not dye her hair but has been styling it with heat more frequently in the last six months, though she recently reduced this to once a week without any change in hair loss. [facility] Medical History (Updated 03/14/25 @ 12:41 by Marcela Marie MD) Hair thinning Lumbar disc herniation Chronic low back pain with sciatica Rosacea History of kidney stones Acne Polyarthralgia Osteoarthritis of right shoulder Arthritis, multiple joint involvement History of seizures History of carpal tunnel syndrome Horners syndrome History of benign schwannoma Endometriosis Asthma Fibromyalgia Surgical History History of neck surgery History of adenoidectomy S/P correction of deviated nasal septum H/O elbow surgery History of carpal tunnel surgery History of tonsillectomy Family History Father Diabetes mellitus DVT (deep venous thrombosis) HTN (hypertension) Mother Osteoarthritis Maternal Grandmother Diabetes mellitus HTN (hypertension) Paternal Grandmother Throat cancer Brother No problems noted. Son No problems noted. 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 1. Little interest or pleasure in doing things: not at all 2. Feeling down, depressed, or hopeless: not at all 3. Trouble falling or staying asleep, or sleeping too much: not at all 4. Feeling tired or having little energy: not at all 5. Poor appetite or overeating: not at all 6. Feeling bad about yourself - or that you are a failure or have let yourself or your family down: not at all 7. Trouble concentrating on things, such as reading the newspaper or watching television: not at all 8. Moving or speaking so slowly that other people could have noticed. Or the opposite - being so fidgety or restless that you have been moving around a lot more than usual: not at all 9. Thoughts that you would be better off or of hurting yourself in some way: not at all Total score: 0 Depression Screening Interpretation: Negative Depression Screening Done: Yes Source: Developed by Eva Perez Kurt Kroenke and colleagues, with an educational frank from [employer]. Thrive Questionnaire Date Thrive assessed: 06/21/24 I am a: Patient What is your living situation today?: I have a steady place to live Within the past 12 months, did the food you bought not last and you didn't have the money to get more?: Never true Within the past 12 months, did you worry whether your food would run out before you got money to buy more?: Never true Do you have trouble paying for medicines?: No Do you have trouble getting transportation to medical appointments?: No Do you have trouble paying your heating and electricity bill?: No Do you have trouble taking care of your child, family member or friend?: No Do you have trouble with day-to-day activities such as bathing, preparing meals, shopping, managing finances, etc.?: No Are you currently unemployed and looking for a job?: No Are you interested in more education?: No Please select the resources that you would like help with: None Currently or been in a relationship where the following occur: No concerns reported THRIVE Score: 0 AUDIT C Alcohol Use Questionnaire (AUDIT-C) 1. How often do you have a drink containing alcohol?: Monthly or less 2. How many drinks containing alcohol do you have on a typical day when you are drinking?: 1 or 2 3. How often do you have six or more drinks on one occasion?: Never Total Score: 1 RAJESH-7 AMB Questionnaire RAJESH-7 Date RAJESH - 7 assessed: 03/14/25 Feeling nervous, anxious, or on edge: 0 = Not at all Not being able to stop or control worryin = Not at all Worrying too much about different things: 0 = Not at all Trouble relaxin = Not at all Becoming easily annoyed or irritable: 0 = Not at all Feeling afraid as if something awful might happen: 0 = Not at all Source: Developed by Eva Perez Kurt Kroenke and colleagues, with an educational frank from [employer]. RAJESH-7 Assessment Billing RAJESH-7 Assessment Tool: RAJESH-7 Assessment 88908 Review of Systems Const All systems reviewed & are unremarkable except as noted in HPI and below Details: Currently being followed by Dr. Nolan for complex ovarian cyst on the left Physical exam (Primary Care) Vital Signs: Last Vital Signs Temp 98.0 F 03/14/25 12:13 Pulse 85 03/14/25 12:13 Resp 16 03/14/25 12:13 BP 122/86 03/14/25 12:13 Pulse Ox 98 03/14/25 12:13 Oxygen Delivery Method Room Air 03/14/25 12:13 BMI result Body Mass Index 28.0 Tobacco/Smoking Status: Tobacco use Status Tobacco use date assessed 03/14/25 03/14/25 12:19 Patient Tobacco Use Status Never used Tobacco 03/14/25 12:19 e-Cigarette/Vaping Use Never Used 03/14/25 12:19 PHQ-9: PHQ-9 Score PHQ-9: Total score 0 03/14/25 12:48 Depression Screening Interpretation: Negative Thrive Assessment: Date of Thrive Assessment Date Thrive assessed 06/21/24 03/14/25 12:19 Currently or been in a relationship where the following occur: No concerns reported Const Other: Alert oriented x3, no acute distress, normal gait noted HENMT Head: Yes normocephalic and No scalp lesion Ears: external ears normal Face and sinus: Yes face symmetric Mouth: moist mucous membranes Neck Neck: Yes full ROM, Yes no lymphadenopathy and Yes supple Resp Auscultation: clear to auscultation bilaterally Cardio Other: S1-S2 present regular rate and rhythm Skin Other: No scalp lesions, scaling, erythema or patchy alopecia noted. No diffuse hair thinning noted Lesions: no lesions Rashes: no rashes Neuro General: gait normal, tone normal, moves all extremities, Normal light touch and pain sensation, no focal motor deficits and CN's II-XI intact bilaterally Gait exam (Neuro): Normal gait present Psych Appearance: grossly normal and well kempt Mental Status: mental status grossly normal Speech and movement: Normal speech and movement present Affect: normal affect Coding Level of Care Code Est Pt Level 3 (64658) Diagnoses Hair thinning L65.9 Additional Codes RAJESH-7 Assessment Billing - RAJESH-7 Assessment Tool: RAJESH-7 Assessment 60450 ([id number]) Assessment & Plan Assessment & Plan (1) Hair thinning: Code(s): L65.9 - Nonscarring hair loss, unspecified Category: Medical Plan: The differential is broad and includes hormonal imbalances related to her hemorrhagic ovarian cyst, nutritional deficiencies such as anemia, or underlying scalp conditions like seborrheic dermatitis. Will check CBC, comprehensive metabolic panel, TSH with reflex T4 The patient is advised to discuss her hair loss with her truck technician, Dr. Foster, at her appointment next week and to bring a copy of her lab results. Hair care recommendations were provided, including discontinuing Head & Shoulders, alternating shampoos, and minimizing heat styling. A flu shot was offered to the patient, which she declined . Patient was informed and verbally consented to the use of an ambient scribe for clinic note documentation during this visit. Orders: Orders Complete Blood Count Auto Diff 03/18/25 L65.9 - Nonscarring hair loss, unspecified TSH reflex Free T4 03/18/25 L65.9 - Nonscarring hair loss, unspecified Comprehensive [place]. Panel Fast 03/18/25 L65.9 - Nonscarring hair loss, unspecified
== END 2025-03-14 12:50 | disposition home or self-care (01) ==
LOC: HO.HMCC 11:10
PROVIDERS: PCP Internal Medicine; Visit Provider Internal Medicine
DX: L65.9 Nonscarring hair loss, unspecified (principal)

== ENCOUNTER → 2025-03-14 11:09 | Outpatient (BNVA) | payer OTHER, SELFPAY | PROVIDERS: PCP Internal Medicine; Visit Provider Internal Medicine | DX: L65.9 Nonscarring hair loss, unspecified (principal) | CPT/HCPCS: 96127; 99212 ==

== ENCOUNTER 2025-03-18 08:08 | Outpatient (REF) | payer OTHER, SELFPAY ==
--- OUTSIDE RECORDS SUMMARY | 2025-03-18 08:16 | XMS_ITS | Encounter Summary ---
Author Organization [facility] Address [email or web address] [facility] [address] [place] [address] Phone Care Team Providers Care Senior Network Administrator Name Role Phone Marcela Marie MD Primary Care Provider Encounter Details Date Type Department Care Team (Late st Contact Info) Description 09/04/2022 Transcribe Orders [facility] Specimen Processing [address] [place] [address] Paulino Owusu, DO [address], [address] [place] [address] [email or web address] Social History Tobacco Use Types Packs/Day Years [...] on filedocumented in this encounter Care Teams Senior Network Administrator Relationship Specialty Start Date End Date Marcela Marie MD [facility] [place] [address] PCP - General Internal Medicine 08/16/20 documented as of this encounter Additional Source Comments The information contained in this document represents components of the legal health record. It is not the complete legal health record.[facility]
--- OUTSIDE RECORDS SUMMARY | 2025-03-18 08:16 | XMS_ITS | Data Portability ---
Author Organization [facility], [facility] Address [address] [place] [address] Care Team Providers Care Phlebotomy Services Technician Name Role Phone MORGAN HENRY Primary Care [...] shldr. room 3 025 11/13/19 hcasagrand e2 [facility] Office, [address], [place], [address], 5 11:58:40 Medication Orders None record ed. [...] a4ajBk vP9nXo QUaueC m3YtLR FvZlgJ JJ8mAn HZtai3 8s0488 AC0Kla X2GVKa jKiQtr MwF INTERFACE [facility] [address], [place], [address], 11/12/2024 10:35:48 11/13/19 25 11/12/2024 XR, shoul azra, 2 or more view http:/ [email or web address] ?Encry pted=s hAaTro YD8dLq bEUv6g %2BXZw aYqtaq 0bqfl% 2Fg9IQ a4ajBk vP9nXo QUaueC m3YtLR FvZlgJ JJ8mAn HZtai3 6m3344 AC0Kla X2GVKa jKiQtr MwF INTERFACE [facility] Office [address], [place], [address], 11/12/2024 10:35:49 Result Notes Documentation Provider Name and Address Organization Details Recorded Time Xr, Shoulder, 2 Or More View : [email or web address] Encrypted=crYxSqiAJ7uQvgN Uv6g%3TOKtsNdwte2dsbh%2Fg 4PYs0nfSyhQ0jCvQIxvpJu9Nn LMNuBckRHO3mKrZWpon73g870 9QH3QeyA5HIAbqRuHqhZkF Not Available [facility] 11/12/2024 10:35: 48 Xr, Shoulder, 2 Or More View : [email or web address] Encrypted=bmOnThxAR3yTzuR Uv6g%2ZVCndZqhwa1jcrp%2Fg 1FRd9ixUubC8vKuYHhxqEs8Wu RUSzEoiRDE9uIzOWnlp26i363 3ZP1OzhE7ZNQuhOeBkqDoH Not Available [facility] 11/12/2024 10:35: 50 Problems Name Problem SNOMED Code Status Onset Date Resolution Date Notes Provider Name and Address Organization Details Recorded Time No complaint s [id number] Active Status: 'I'; Not Available [facility] 09:18:45 Lesion of right ulnar nerve 752804410932 103 Active 2019 Problem Code: G56.21; Problem Code Type: ICD-10; Status: 'A'; Not Available [facility] 4 11:58:41 Arthritis of right glenohume ral joint 475545861087 9109 Active 2024 Alonzo Wilkinson PA-C [address], [place], [address] , [facility] 5 11:20:55 Problem Notes None recorded. Procedures Surgical History Date Name Laterality Status Provider Name and Address Organization Details Recorded Time 5 Shoulder Joint/Bursa Injection, L/R w/US Lidocaine 1% 1 cc completed Alonzo Wilkinson PA-C [address], [place], [address], [facility] 11/12/2024 11:20:47 Imaging Results None recorded. Procedure Notes None recorded. Medical Equipment None Reported. Allergies Allergen ID Allergen Name Allergen Category Reaction Reaction Severity Criticality Documentation Date Start Date Code Code System Note Provider Name and Address Organization Details Recorded Time 23223 Iodinated contrast media (substanc e) medicatio n Not available Not available Not available 07/21/20232018 66587 2003 SNOMED Aller gyNam e: 'cont rast dye'; Not Available [facility] 4 15:12:58 Medications Name Sig Start Date [...] ICD10 Code Diagnosis IMO Codes Diagnosis Note [id number] ANNA Gusman Clinical [address] [place] [address] 11/12/2024 10:19:01 11/24/2024 15:52:55 Pain of right shoulder joint 2960473139 9277728 M25.511 708459 Arthritis of right glenohumeral joint 4793820051 511235 M19.011 5470168097 Health Concerns Section Related Observation LastModified by Organization Detai ls LastModified Time None Recorded Concern Status LastModified by Organization Details LastModified Time None Recorded Advance Directives Directive None Recorded Payers Insurance Date Sequence Insurance Name Policy Number Policy Mccain Covered Member ID Mccain Member ID Guarantor Name 11/24/2024 1 [facility] HEALTH PLAN (POS) [id number] Nanda Hoang [id number] 11/11/2024 1 [facility] (POS) [id number] Nanda Hoang [id number] 11/11/2024 2 () Nanda Hoang [id number] 11/11/2024 2 () Nanda Hoang [id number] 11/24/2024 2 [employer] ( SUPPLEMENT) Nanda Hoang [id number] Notes Date Note Type Note Provider Name [...] were ordered, obtained and reviewed today at [facility]. Four views of the right shoulder [...] to be occur. Alonzo Wilkinson PA-C [address], [place], [address], [place] [facility] [place] [facility] 11/12/2024 11:21:08 OBGyn Episode No OBEpisode recorded.
--- OUTSIDE RECORDS SUMMARY | 2025-03-18 08:17 | XMS_ITS | Clinical Summary ---
Author Organization [facility] Address [address] [place] [address] Phone Care Team Providers Care Insole Reinforcer Name Role Phone Marcela Marie MD Primary [...] she is advised to follow-up with her wood carving machine operator for possible early perimenopause. Multiple food [...] 2020 INFLUENZA VACCINE (#1) 2024 COVID-19 VACCINE (2024-2 6 season) 2025 SCREENING FOR DIABETES 12/07/2027 12/06/2024 [...] this topic Medical Devices Not on file Insurance [facility] FAMILY [employer] PLAN GENERIC COMMERCIAL FAMILY HEALTH PLAN GENERIC COMMERCIAL FAMILY HEALTH PLAN GENERIC [place] [address] [place] [address] FAMILY HEALTH PLAN Member Subscriber Plan / Payer (Ef fective 2018-Present) Name:Nanda Hoang Relation to Subscriber:Self Name:Nanda Hoang Payer ID:[id number] (IC) Type:HMO Address: [id number] [place] [place] [address] FAMILY HEALTH PLAN GENERIC COMMERCIAL HEALTH PLAN GENERIC COMMERCIAL HEALTH PLAN GENERIC COMMERCIAL FAMILY HEALTH PLAN GENERIC COMMERCIAL FAMILY HEALTH PLAN GENERIC COMMERCIAL Care Teams Insole Reinforcer Relationship Specialty Start Date End Date Marcela Marie MD [facility] [place] [address] PCP - General Internal Medicine 08/16/20 Additional Source Comments The information contained in this document represents components of the legal health record. It is not the complete legal health record.[facility]
[2025-03-18 10:28] LABS: MANUAL DIFF FLAG NO
[2025-03-18 10:37] LABS: Hematocrit 42.8 % (37.0-47.0); Hemoglobin 14.5 g/dl (12.0-16.0); Imm Gran Abs Auto 0.01 X10*3/uL (0.00-0.03); Imm Gran Pct Auto 0.2 % (0.0-0.4); Lymphocytes Absolute Auto 2.0 X10*3/uL (1.2-4.9); Mean Corpuscular HGB Conc 33.9 g/dl (31.0-35.0); Mean Corpuscular Hemoglobin 30.1 pg (27.0-33.0); Mean Corpuscular Volume 89.0 fL (80.0-98.0); NRBC Abs Auto 0.000 X10*3/uL (0.0-0.012); NRBC Pct Auto 0.0 /100WBC (0.0-0.2); Platelet Count 301 X10*3/uL (160-400); Red Blood Count 4.81 X10*6/uL (4.20-5.50); White Blood Count 4.5 X10*3/uL (4.8-10.8)
[2025-03-18 11:16] LABS: Alanine Aminotransferase 6 U/L (0-31); Albumin Level 4.5 g/dL (3.5-5.0); Alkaline Phosphatase 60 U/L (39-117); Anion Gap 11 (12-20); Aspartate Amino Transferase 20 U/L (5-31); Blood Urea Nitrogen 9 mg/dL (9-16); Calcium 8.9 mg/dL (8.4-10.2); Carbon Dioxide 24 mmol/L (22-29); Chloride 108 mmol/L (96-108); Estimated Glomerular Filt Rate 55; Potassium 3.8 mmol/L (3.3-5.1); Sodium 139 mmol/L (135-145); Total Protein 7.2 g/dL (6.5-8.0)
== END 2025-03-18 08:09 | disposition home or self-care (01) ==
LOC: HO.HMGCLDS 08:08
PROVIDERS: PCP Internal Medicine; Visit Provider Internal Medicine
DX: L65.9 Nonscarring hair loss, unspecified (principal)
CPT/HCPCS: 36415; 80053; 84443; 85025

== ENCOUNTER 2025-03-21 11:33 | Outpatient (AMB) | payer OTHER, SELFPAY ==
--- NOTE | 2025-03-21 11:36 | A.OFFVIS_ITS ---
Vital Signs 03/21/25 11:38 Height 5 ft 7 in Weight 179 lb BMI 28.0 Intake Visit Reasons: U/S f/u Composing Room Machinist Required: No Information Interpreted: non-clinical & clinical Accompanied by: Self / Same As Patient Allergies Iodinated Contrast Media (Iodinated Contrast Media - IV Dye) Allergy (Severe, Verified 03/21/25 11:40) ANGIOEDEMA NSAIDS (Non-Steroidal Anti-Inflamma Allergy (Mild, Verified 03/21/25 11:40) Unknown nogueira Adverse Reaction (Verified 03/21/25 11:40) Anaphylaxis vianca fruit Adverse Reaction (Uncoded 03/21/25 11:40) Anaphylaxis HPI Comments Details: Presenting for follow-up ultrasound regarding uterine myoma seen on previous pelvic ultrasound. The patient is doing well with no complaints no abnormal uterine bleeding, pelvic pressure or pain. Pelvic ultrasound done recently showed the following: IMPRESSION: 1. There are 2 small uterine fibroid tumors, the larger measuring 1.7 cm, grossly stable from the prior examinations. 2. There is heterogeneous myometrial echotexture, with hyperechoic foci, and a tiny subendometrial cystic focus. Although nonspecific, these findings have been described with adenomyosis. 3. The ovaries are normal. There is a simple follicular cyst on the left measuring 2.0 cm. [facility] Medical History Hair thinning Lumbar disc herniation Chronic low back pain with sciatica Rosacea History of kidney stones Acne Polyarthralgia Osteoarthritis of right shoulder Arthritis, multiple joint involvement History of seizures History of carpal tunnel syndrome Horners syndrome History of benign schwannoma Endometriosis Asthma Fibromyalgia Surgical History History of neck surgery History of adenoidectomy S/P correction of deviated nasal septum H/O elbow surgery History of carpal tunnel surgery History of tonsillectomy Family History Father Diabetes mellitus DVT (deep venous thrombosis) HTN (hypertension) Mother Osteoarthritis Maternal Grandmother Diabetes mellitus HTN (hypertension) Paternal Grandmother Throat cancer Brother No problems noted. Son No problems noted. 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 Sexual orientation: Straight/Heterosexual Gender identity: Female Cognitive needs: No Hearing needs: No Vision needs: No Female Reproductive History Menstrual Age of Menarche: 13 Review of Systems Const All systems reviewed & are unremarkable except as noted in HPI and below Reports as per HPI and Reports no additional complaints GI Reports no additional complaints Reports no additional complaints Physical Exam Vital Signs: BMI result Body Mass Index 28.0 Assessment & Plan Assessment & Plan (1) Uterine myoma: Code(s): D25.9 - Leiomyoma of uterus, unspecified Category: Medical Plan: Discussed with the patient the findings on pelvic ultrasound & the risk of myosarcoma; in addition reviewed with the patient that malignancy and pre malignancy cannot be ruled out without hysterectomy for pathological evaluation ; furthermore, explained to the patient the limitation of pelvic ultrasound and endometrial biopsy in the setting. Discussed with the patient the options of treatment including expectant management versus hysterectomy; the pros and cons, risks benefits of each appro ach were discussed with the patient including the fact that in cases of myosarcoma, surgical treatment can lead to early diagnosis and positively affects the prognosis; after further discussion, the patient decided to proceed with expectant management. Will repeat pelvic ultrasound periodically. Instructions given to patient to call in case any of the following occurs: pressure symptoms, abnormal uterine bleeding, pelvic pain; and to schedule a 12- months pelvic ultrasound (order placed) and a follow-up appointment . All questions answered, the patient verbalized understanding and agreed with the plan . (2) Ovarian cyst: Comment: Resolved Code(s): N83.209 - Unspecified ovarian cyst, unspecified side Category: Medical Plan: Discussed with the patient the previously partially collapsed ovarian cyst insert placed with simple ovarian cyst, the patient was reassured. All questions answered, the patient verbalized understand Orders: Orders US pelvic and transvaginal 1 Year D25.9 - Leiomyoma of uterus, unspecified Coding Level of Care Code Est Pt Level 3 (39436) Diagnoses Uterine myoma D25.9 Ovarian cyst N83.209
[2025-03-21 11:38] VITALS: BMI 28.0
--- OUTSIDE RECORDS SUMMARY | 2025-03-21 14:44 | XMS_ITS | Data Portability ---
Author Organization [facility], [facility] Address [address] [place] [address] Care Team Providers Care Vacuum System Tester Name Role Phone MORGAN HENRY Primary Care Provider [phone] Assessment No assessment recorded. Plan of Treatment Reminders Order Date Submit Date Provider Last Modified By Organization Details Last Modified Time Details Appointments None record ed. Lab None record ed. Referral None record ed. Procedures None record ed. Surgeries None record ed. Imaging XR, should er, 2 or more view - 4v R shldr. room 3 025 11/13/19 hcasagrand e2 [facility], [address], [place], [address], 5 11:58:40 Medication Orders None record ed. [...] a4ajBk vP9nXo QUaueC m3YtLR FvZlgJ JJ8mAn HZtai3 5p4958 AC0Kla X2GVKa jKiQtr MwF INTERFACE [facility] [address], [place], [address], 11/12/2024 10:35:48 11/13/19 25 11/12/2024 XR, shoul azra, 2 or more view http:/ [email or web address] ?Encry pted=s hAaTro YD8dLq bEUv6g %2BXZw aYqtaq 0bqfl% 2Fg9IQ a4ajBk vP9nXo QUaueC m3YtLR FvZlgJ JJ8mAn HZtai3 0s5569 AC0Kla X2GVKa jKiQtr MwF INTERFACE [facility] [address] [facility] [address], [place], [address], 11/12/2024 10:35:49 Result Notes Documentation Provider Name and Address Organization Details Recorded Time Xr, Shoulder, 2 Or More View : [email or web address] Encrypted=aqAaDieYU8lMcwN Uv6g%8DSIwvJurqa8jmea%2Fg 5KQf5ghDmkB3uMbVHgqyWg8Zg TLRfQppWQR9nGwSNqbq09x933 7IY0AoyE8GMIvhQkGvrXjK Not Available [facility] 11/12/2024 10:35: 48 Xr, Shoulder, 2 Or More View : [email or web address] Encrypted=teMgNlfJW9lIvkL Uv6g%3HWBuiHwayq7iiov%2Fg 1LZx9iqIhqA9uVjQNmqpXz4Md UQHqGljAJM1jKxZQfmy10v724 2NW9ZpfO6UDOnrBqHluBoW Not Available [facility] 11/12/2024 10:35: 50 Problems Name Problem SNOMED Code Status Onset Date Resolution Date Notes Provider Name and Address Organization Details Recorded Time No complaint s 209683152 Active Status: 'I'; Not Available [facility] 09:18:45 Lesion of right ulnar nerve 188066122831 103 Active 2019 Problem Code: G56.21; Problem Code Type: ICD-10; Status: 'A'; Not Available [facility] 4 11:58:41 Arthritis of right glenohume ral joint 970842617690 9109 Active 2024 Alonzo Wilkinson PA-C [address], [place], [address] , [facility] 5 11:20:55 Problem Notes None recorded. Procedures Surgical History Date Name Laterality Status Provider Name and Address Organization Details Recorded Time 5 Shoulder Joint/Bursa Injection, L/R w/US Lidocaine 1% 1 cc completed Alonzo Wilkinson PA-C [address] [facility] [address], [place], [address], [facility] 11/12/2024 11:20:47 Imaging Results None recorded. Procedure Notes None recorded. Medical Equipment None Reported. Allergies Allergen ID Allergen Name Allergen Category Reaction Reaction Severity Criticality Documentation Date Start Date Code Code System Note Provider Name and Address Organization Details Recorded Time 94335 Iodinated contrast media (substanc e) medicatio n Not available Not available Not available 07/21/20232018 91268 2003 SNOMED Aller gyNam e: 'cont rast dye'; Not Available [facility] 4 15:12:58 Medications Name Sig [...] ICD10 Code Diagnosis IMO Codes Diagnosis Note [id number] ANNA Gusman Clinical [address] [place] [address] 11/12/2024 10:19:01 11/24/2024 15:52:55 Pain of right shoulder joint 8841492890 7660076 M25.511 115619 Arthritis of right glenohumeral joint 3635160028 112100 M19.011 [id number] Health Concerns Section Related Observation LastModified by Organization Detai ls LastModified Time None Recorded Concern Status LastModified by Organization Details LastModified Time None Recorded Advance Directives Directive None Recorded Payers Insurance Date Sequence Insurance Name Policy Number Policy Mccain Covered Member ID Mccain Member ID Guarantor Name 11/24/2024 1 [facility] PLAN (POS) [id number] Nanda Hoang [id number] 11/11/[address] [facility] (POS) [id number] Nanda Hoang [id number] 11/11/2024 2 () Nanda Hoang [id number] 11/11/2024 2 () Nanda Hoang [id number] 11/24/2024 2 [employer] ( SUPPLEMENT) Nanda Hoang [id number] Notes Date Note Type Note Provider Name [...] were ordered, obtained and reviewed today at [facility]. Four views of the right shoulder [...] to be occur. Alonzo Wilkinson PA-C [address], [place], [address], [place] [facility] [place] [facility] 11/12/2024 11:21:08 OBGyn Episode No OBEpisode recorded.
--- OUTSIDE RECORDS SUMMARY | 2025-03-21 14:44 | XMS_ITS | Encounter Summary ---
Author Organization [facility] Address [address] [place] [address] Phone Care Team Providers Care Seed Yeast Operator Name Role Phone Marcela Marie MD Primary Care Provider Encounter Details Date Type Department Care Team (Late st Contact Info) Description 09/04/2022 Transcribe Orders [facility] Specimen Processing [address] [place] [address] Paulino Owusu, DO [address], [address] [place] [address] [email or web address] Social History Tobacco Use Types Packs/Day Years [...] on filedocumented in this encounter Care Teams Seed Yeast Operator Relationship Specialty Start Date End Date Marcela Marie MD [facility] [place] [address] PCP - General Internal Medicine 08/16/20 documented as of this encounter Additional Source Comments The information contained in this document represents components of the legal health record. It is not the complete legal health record.[facility]
--- OUTSIDE RECORDS SUMMARY | 2025-03-21 14:45 | XMS_ITS | Clinical Summary ---
Author Organization [facility] Address [address] [place] [address] Phone Care Team Providers Care Subassembly Assembler Name Role Phone Marcela Marie MD Primary [...] she is advised to follow-up with her wire spinner for possible early perimenopause. Multiple food allergies [...] topic Medical Devices Not on file Insurance [facility] FAMILY HE[employer] PLAN GENERIC COMMERCIAL FAMILY HEALTH PLAN GENERIC COMMERCIAL FAMILY HEALTH PLAN [place] [address] [place] [address] FAMILY HEALTH PLAN Member Subscriber Plan / Payer (Ef fective 2018-Present) Name:Nanda Hoang Relation to Subscriber:Self Name:Nanda Hoang Payer ID:[id number] (IC) Type:HMO Address: [address] [id number] [place] [address] FAMILY HEALTH PLAN GENERIC COMMERCIAL HEALTH PLAN GENERIC COMMERCIAL HEALTH PLAN GENERIC COMMERCIAL FAMILY HEALTH PLAN GENERIC COMMERCIAL FAMILY HEALTH PLAN GENERIC COMMERCIAL Care Teams Subassembly Assembler Relationship Specialty Start Date End Date Marcela Marie MD [facility] [place] [address] PCP - General Internal Medicine 08/16/20 Additional Source Comments The information contained in this document represents components of the legal health record. It is not the complete legal health record.[facility]
== END 2025-03-21 12:17 | disposition home or self-care (01) ==
LOC: HO.HWS 11:34
PROVIDERS: PCP Internal Medicine; Visit Provider Obstetrics & Gynecology
DX: D25.9 Leiomyoma of uterus, unspecified (principal); N83.209 Unspecified ovarian cyst, unspecified side
CPT/HCPCS: 99213

== ENCOUNTER → 2025-03-21 11:33 | Outpatient (BNVA) | payer OTHER, SELFPAY | PROVIDERS: PCP Internal Medicine; Visit Provider Obstetrics & Gynecology | DX: D25.9 Leiomyoma of uterus, unspecified (principal); N83.02 Follicular cyst of left ovary | CPT/HCPCS: 99212 ==

== ENCOUNTER 2025-04-08 07:45 | Outpatient (REF) | payer OTHER, SELFPAY ==
--- OUTSIDE RECORDS SUMMARY | 2015-08-20 19:00 | XMS_ITS | Continuity of Care Document ---
Author Organization [facility] are Address [address] [place] [address] Phone Care Team Providers Care Physiological Chemist Name Role Phone Geronimo Artis MD Unavailable Unavailable Procedures Procedure Date Upper GI endoscopy, w/biopsy Advance Directives Directive Yes / No Effective Date File Name No Information Encounters Encounter Description Practice Location Reason(s) For Visit Diagnoses Date Provider [facility], [address], [place], [id number], [place] tel:[phone] [facility] No Information [address], [address], [place], [place], [id number], [place]. tel:[phone] Family History Family Member Type Diagnosis Age At Onset No Information Payers Payer name Insurance type Covered republican ID Authoriza tion(s) [facility] [place] [id number] Social History Type Description Quantity Date Captured Comments Sex Female Smoking Status No Information Chief Complaint And Reason For Visit No Information History Of Present Illness Encounter Date Complaint History Of Prese nt Illness No Information Instructions Date Instruction Additional Infor mation No Information Assessments Type Assessment Date No Information
--- NOTE | ~2025-04-08 | MM_ITS ---
EXAMINATION: MM SCREENING DIGITAL BREAST TOMOSYNTHESIS, BILATERAL CLINICAL INFORMATION: Screening. Asymptomatic. COMPARISON: Mammography: Comparison is made with available priors TECHNIQUE: Digital breast mammography with tomosynthesis is performed in both the craniocaudal and mediolateral oblique views along with computer-aided detection (CAD). FINDINGS: The breasts are heterogeneously dense, which may obscure small masses. There are no significant masses, abnormal calcifications, or other abnormalities. MM/MM tomosynthesis screening BI IMPRESSION: No mammographic evidence of malignancy. ASSESSMENT: BI-RADS Category 1: Negative RECOMMENDATION: Routine annual mammography screening. 1 year F/U This examination should not preclude the clinical evaluation of a suspicious palpable abnormality. This patient's information was entered into a reminder system with a target due date for their next mammogram. Electronically signed by: Janice Miller DO 04/11/2025 05:42 PM [facility]
--- OUTSIDE RECORDS SUMMARY | 2025-04-08 07:49 | XMS_ITS | Data Portability ---
Author Organization [facility], [facility] Address [address] [place] [address] Care Team Providers Care Structural Engineering Project Manager Name Role Phone MORGAN HENRY Primary Care [...] shldr. room 3 025 11/13/19 hcasagrand e2 [facility], [address], [place], [address], 5 11:58:40 Medication Orders None record ed. [...] a4ajBk vP9nXo QUaueC m3YtLR FvZlgJ JJ8mAn HZtai3 1p3583 AC0Kla X2GVKa jKiQtr MwF INTERFACE [facility] [address], [place], [address], 11/12/2024 10:35:48 11/13/19 25 11/12/2024 XR, shoul azra, 2 or more view http:/ [email or web address] ?Encry pted=s hAaTro YD8dLq bEUv6g %2BXZw aYqtaq 0bqfl% 2Fg9IQ a4ajBk vP9nXo QUaueC m3YtLR FvZlgJ JJ8mAn HZtai3 7z9636 AC0Kla X2GVKa jKiQtr MwF INTERFACE [facility] [address] [facility] [address], [place], [address], 11/12/2024 10:35:49 Result Notes Documentation Provider Name and Address Organization Details Recorded Time Xr, Shoulder, 2 Or More View : [email or web address] Encrypted=kmNyVwzZL1uQzaZ Uv6g%2ZHEqvGzown5mqdk%2Fg 7ROo9fsVnxH3oTpENaogLr8Sm JPVhUcjKAK6eXkNElzv10k405 3JT7CbxN3VDQkaGqMdfDeT Not Available [facility] 11/12/2024 10:35: 48 Xr, Shoulder, 2 Or More View : [email or web address] Encrypted=xnQeEqnKF9cVzpW Uv6g%9SJWsiQbcgx2qbez%2Fg 9LZm7joFrvB4qJlXCshlSe3Ot PPDsAcdGIQ3aUqIYtnr68d276 3VG2DbeX7KDVdyUtUdwBnU Not Available [facility] 11/12/2024 10:35: 50 Problems Name Problem SNOMED Code Status Onset Date Resolution Date Notes Provider Name and Address Organization Details Recorded Time No complaint s 924335255 Active Status: 'I'; Not Available [facility] 09:18:45 Lesion of right ulnar nerve 445252896569 103 Active 2019 Problem Code: G56.21; Problem Code Type: ICD-10; Status: 'A'; Not Available On [facility] of [facility] 4 11:58:41 Arthritis of right glenohume ral joint 709777318057 9109 Active 2024 Alonzo Wilkinson PA-C [address], [place], [address] , [facility] 5 11:20:55 Problem Notes None recorded. Procedures Surgical History Date Name Laterality Status Provider Name and Address Organization Details Recorded Time 5 Shoulder Joint/Bursa Injection, L/R w/US Lidocaine 1% 1 cc completed Alonzo Wilkinson PA-C [address] [facility] [address], [place], [address], [facility] 11/12/2024 11:20:47 Imaging Results None recorded. Procedure Notes None recorded. Medical Equipment None Reported. Allergies Allergen ID Allergen Name Allergen Category Reaction Reaction Severity Criticality Documentation Date Start Date Code Code System Note Provider Name and Address Organization Details Recorded Time 35675 Iodinated contrast media (substanc e) medicatio n Not available Not available Not available 07/21/20232018 46957 2003 SNOMED Aller gyNam e: 'cont rast dye'; Not Available On [facility] of [facility] 4 15:12:58 Medications Name Sig [...] ICD10 Code Diagnosis IMO Codes Diagnosis Note [id number] ANNA Gusman Clinical [address] [place] [address] 11/12/2024 10:19:01 11/24/2024 15:52:55 Pain of right shoulder joint 1111461991 0337333 M25.511 350251 Arthritis of right glenohumeral joint 8716238635 224930 M19.011 [id number] Health Concerns Section Related Observation LastModified by Organization Detai ls LastModified Time None Recorded Concern Status LastModified by Organization Details LastModified Time None Recorded Advance Directives Directive None Recorded Payers Insurance Date Sequence Insurance Name Policy Number Policy Mccain Covered Member ID Mccain Member ID Guarantor Name 11/24/2024 1 [facility] HE[facility] PLAN (POS) [id number] Nanda Hoang [id number] 11/11/2024 1 [facility] (POS) [id number] Nanda Hoang [id number] 11/11/2024 2 () Nanda Hoang [id number] 11/11/2024 2 () Nanda Hoang [id number] 11/24/2024 2 20x200 ( SUPPLEMENT) Nanda Hoang [id number] Notes Date Note Type Note Provider Name [...] were ordered, obtained and reviewed today at [facility]. Four views of the right shoulder [...] to be occur. Alonzo Wilkinson PA-C [address] [facility] [address], [place], [address], [place] [facility] [place] [facility] 11/12/2024 11:21:08 OBGyn Episode No OBEpisode recorded.
--- OUTSIDE RECORDS SUMMARY | 2025-04-08 07:49 | XMS_ITS | Encounter Summary ---
Author Organization [facility] Address [address] [place] [address] Phone Care Team Providers Care Manager Music Name Role Phone Marcela Marie MD Primary Care Provider Encounter Details Date Type Department Care Team (Late st Contact Info) Description 09/04/2022 Transcribe Orders [facility] Specimen Processing [address] [place] [address] Paulino Owusu, DO [address] [facility], [address] [place] [address] [email or web address] Social History Tobacco Use Types Packs/Day Years [...] on filedocumented in this encounter Care Teams Manager Music Relationship Specialty Start Date End Date Marcela Marie MD [facility] [address] PCP - General Internal Medicine 08/16/20 documented as of this encounter Additional Source Comments The information contained in this document represents components of the legal health record. It is not the complete legal health record.[facility]
--- OUTSIDE RECORDS SUMMARY | 2025-04-08 07:49 | XMS_ITS | Clinical Summary ---
Author Organization [facility] Address [address] [place] [address] Phone Care Team Providers Care Select Banker Name Role Phone Marcela Marie MD Primary [...] she is advised to follow-up with her plastic tubing insulation supervisor for possible early perimenopause. Multiple food allergies [...] greatly from reading book written by Dr iH Reyes Full catastrophe living describing mindfulness approach [...] SCREENING (18-6 5 YEARS) 1998 PAP SMEAR 05/25/2018 05/25/2015 MAMMOGRAM 2020 INFLUENZA VACCINE (#1) 2024 COVID-19 VACCINE ( - 2024-2 6 season) 2025 SCREENING FOR DIABETES 12/07/2027 12/06/2024 SMOKING STATUS SCREENING (On ce After 26 Yrs) Completed 12/31/2023 HEPATITIS A VACCINES Aged Out No long er eligible based on patient's age to complete this topic HIB VACCINES Aged Out No longer eligi ble based on patient's age to complete this topic IPV VACCINES Aged Out No longer eligi ble [...] Procedure Name Priority Date/Time Associated Diagnosis Comments FERRITIN Routine 03/25/2025 3:22 PM EST Acne vulgaris Drug therapy from Last 3 Months Results * Ferritin (03/25/2025 3:22 PM EST) Ferritin 109 30 - 150 ug/L 03/25/2025 9:46 PM EST [facility] Comment:The lower limit of t he reference range has been increased to 30 ug/L for all adults to reflect a physiologically sufficient level. See Document Link for additional information. Blood (Blood) Venipuncture / Unknown 03/25/2025 3:22 PM EST 03/25/2025 3:22 PM EST Tiffany Foster MD LAB BLOOD BKR ORDER JOSE Final Result [address] [phone] from Last 3 Months Insurance GENERIC COMMERCIAL FAMILY HEALTH PLAN GENERIC COMMERCIAL FAMILY HEALTH PLAN [employer] [place] [address] [place] [address] FAMILY HEALTH PLAN GENERIC COMMERCIAL FAMILY HEALTH PLAN GENERIC COMMERCIAL FAMILY HEALTH PLAN GENERIC COMMERCIAL FAMILY HEALTH PLAN GENERIC COMMERCIAL FAMILY HEALTH PLAN [place]IC [place] [address] [place] [address] FAMILY HEALTH PLAN GENERIC COMMERCIAL Care Teams Select Banker Relationship Specialty Start Date End Date Marcela Marie MD [address] [place] [address] [place] [address] PCP - General Internal Medicine 08/16/20 Additional Source Comments The information contained in this document represents components of the legal health record. It is not the complete legal health record.[facility]
== END 2025-04-08 07:46 | disposition home or self-care (01) ==
LOC: HO.MAMMO 07:45
PROVIDERS: PCP Internal Medicine; Visit Provider Internal Medicine
DX: Z12.31 Encounter for screening mammogram for malignant neoplasm of breast (principal)
CPT/HCPCS: 77063; 77067

== ENCOUNTER → 2025-04-08 08:00 | Outpatient (BNV) | payer OTHER, SELFPAY | PROVIDERS: PCP Internal Medicine; Visit Provider Internal Medicine | DX: Z12.31 Encounter for screening mammogram for malignant neoplasm of breast (principal) | CPT/HCPCS: 77063; 77067 ==